=== PATIENT | female | born 1970 | race Caucasian/White ===

== ENCOUNTER 2023-02-20 16:24 | Emergency (ER) | payer SELFPAY ==
[2023-02-20 16:29] VITALS: BP 112/71; PULSE 78; RESP 20; TEMP 36.8; O2SAT 97; BMI 46.9
--- NOTE | 2023-02-20 16:38 | ED.URI1 ---
HPI - URI/Sore Throat General Chief Complaint: Upper Respiratory Infection Stated Complaint: SORE THROAT Time Seen by Provider: 02/20/23 16:38 Source: patient Limitations: no limitations History of Present Illness HPI Narrative: 52-year-old female presents for sore throat and slight cough and some body aches. She thinks she has strep throat or a virus. She's had Covid before and doesn't suspect that she has Covid. No vomiting or fever.Symptoms are intermittent. Related Data Home Medications Medication Instructions Recorded Confirmed atorvastatin 10 mg tablet 10 mg PO DAILY 02/20/23 02/20/23 chlorthalidone 25 mg tablet 25 mg PO DAILY 02/20/23 02/20/23 glipizide 10 mg tablet 10 mg PO BID 02/20/23 02/20/23 lisinopril 10 mg tablet 10 mg PO DAILY 02/20/23 02/20/23 pantoprazole 40 mg tablet,delayed 40 mg PO DAILY 02/20/23 02/20/23 release Allergies Allergy/AdvReac Type Severity Reaction Status Date / Time No Known Drug Allergies Allergy Verified 02/20/23 16:28 Review of Systems ROS Narrative A ten point review of systems is negative except as noted above. PFSH PFSH Social History Smoking status: Heavy tobacco smoker Exam Narrative Exam Narrative: Nurses note and vital signs reviewed and patient is not hypoxic. General: The patient appears well and in no apparent distress. Patient is resting comfortably on cart. Skin: Warm, dry, no pallor noted. There is no rash noted. Head: Normocephalic, atraumatic Eye: Normal conjunctiva, no drainage Ears, Nose, Mouth, and Throat: oral mucosa is moist. Nares patent.No pharyngeal erythema or exudate. Cardiovascular: Regular Rate and Rhythm Respiratory: Patient is in no distress, no accessory muscle use, lungs are clear to auscultation, no wheezing, rales or rhonchi Back: non-tender GI: Soft and nontender Musculoskeletal: The patient has no evidence of calf tenderness, no pitting edema, symmetrical pulses noted bilaterally Neurological: A&O, normal speech Psychiatric: Cooperative Constitutional Vital Signs - 24 hr 02/20/23 16:29 Temperature 98.2 F Pulse Rate [Monitor] 78 Respiratory Rate 20 Blood Pressure [Left Arm] 112/71 Pulse Oximetry 97 Course Vital Signs Vital signs: Vital Signs Temperature 98.2 F 02/20/23 16:29 Pulse Rate 78 02/20/23 16:29 Respiratory Rate 20 02/20/23 16:29 Blood Pressure 112/71 02/20/23 16:29 Pulse Oximetry 97 02/20/23 16:29 Temperature 98.2 F 02/20/23 16:29 Pulse Rate 78 02/20/23 16:29 Respiratory Rate 20 02/20/23 16:29 Blood Pressure 112/71 02/20/23 16:29 Pulse Oximetry 97 02/20/23 16:29 MDM - URI/Sore Throat MDM Narrative Medical decision making narrative: Strep test is negative. My clinical impressions that she is a viral infection. Antibiotic not indicated. Treatment diagnosis and follow up are discussed with the patient. Differential Diagnosis Differential diagnosis: Likely upper respiratory infection, viral infection and pharyngitis Lab Data Attestation: I reviewed the patient's lab results. Labs: Lab Results 02/20/23 Range/Units 16:35 Streptococcus Screen Negative Discharge Plan Discharge Chief Complaint: Upper Respiratory Infection Clinical Impression: Viral pharyngitis Patient Disposition: Home, Self-Care Time of Disposition Decision: 17:20 Condition: Good Mode of Transportation: Private Vehicle Prescriptions / Home Meds: No Action atorvastatin 10 mg tablet 10 mg PO DAILY chlorthalidone 25 mg tablet 25 mg PO DAILY glipizide 10 mg tablet 10 mg PO BID lisinopril 10 mg tablet 10 mg PO DAILY pantoprazole 40 mg tablet,delayed release (DR/EC) 40 mg PO DAILY Instructions: Pharyngitis (ED) Stand Alone Forms: Portal Instructions Referrals: NEGIN HARDWICK [Primary Care Provider] - 1 week
--- NOTE | 2023-02-20 16:40 | PC.NURSE ---
strept swab obtained and sent to lab
[2023-02-20 16:57] LABS: Internal Control Within Normal Limits; Strep A Antigen Screen Negative
== END 2023-02-20 17:31 | disposition home or self-care (01) ==
PROVIDERS: Emergency Provider Emergency Medicine; PCP Nurse Practitioner Family
DX: J02.9 Acute pharyngitis, unspecified (principal); Z86.16 Personal history of COVID-19; F17.210 Nicotine dependence, cigarettes, uncomplicated; Z79.899 Other long term (current) drug therapy
CPT/HCPCS: 87070; 87880; 99283

== ENCOUNTER 2023-08-26 19:10 | Outpatient (REF) | payer BC, SELFPAY ==
[2023-08-30 04:09] LABS: Age Gdln ACOG Testing Note (.); HPV Aptima Positive (Negative); HPV Genotype 16 Negative (Negative); HPV Genotype 18,45 Negative (Negative); IGP, Aptima HPV, rfx 16/18,45 Note (.)
== END 2023-08-26 19:11 | disposition home or self-care (01) ==
LOC: LAB 19:10
PROVIDERS: PCP Nurse Practitioner Family; Visit Provider Nurse Practitioner Family
DX: Z01.419 Encounter for gynecological examination (general) (routine) without abnormal findings (principal)
CPT/HCPCS: 87624; 87625; G0145

== ENCOUNTER 2023-09-04 17:15 | Emergency (ER) | payer BC, SELFPAY ==
[2023-09-04 17:45] VITALS: BP 136/68; PULSE 69; RESP 18; TEMP 37; O2SAT 99; BMI 44.3
--- OUTSIDE RECORDS SUMMARY | 2023-09-04 17:55 | XMS_ITS | CCD ---
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 Role Phone NEGIN HARDWICK Admitting Unavailable RONEN, NEGIN Attending Unavailable RONEN, NEGIN Primary Care Unavailable RONEN, NEGIN Consulting Unavailable RONEN, NEGIN Primary Care Unavailable MARKER ., DR HODGE Consulting Unavailable MARKER ., DR HODGE Admitting Unavailable MARKER ., DR HODGE Attending Unavailable MATT GONZALEZ Consulting Unavailable REQUEST, NONE LISTED Admitting Unavaila ble REQUEST, NONE LISTED Attending Unavaila ble RONEN, NEGIN Primary Care Unavailable REQUEST, NONE LISTED Consulting Unavaila ble RONEN, NEGIN Admitting Unavailable RONEN, NEGIN Attending Unavailable RONEN, NEGIN Primary Care Unavailable REQUEST, NONE LISTED Consulting Unavaila ble RONEN, NEGIN Admitting Unavailable RONEN, NEGIN Attending Unavailable RONEN, NEGIN Primary Care Unavailable RONEN, NEGIN Consulting Unavailable Allergies Allergy Classification Reported Allergen(s) Allergy Type Date of Onset Reaction(s) Facility (1 source) predniSONE Drug Allergy 12-09-2020 [facility] Repository Problems Active Problems Problem Classification Problem Date Documented Da te Episodic/Chronic Diabetes mellitus without complication (5 sources) Type 2 diabetes mellitus without complications; Translations: [TYPE 2 DM WITHOUT COMPLICATIONS] Onset: 02-12-2022 Chronic Essential hypertension (1 source) Essential (primary) hypertension; Translations: [ESSENTIAL PRIMARY HYPERTENSION] Onset: 06-14-2022 Chronic Substance-related disorders (1 source) Nicotine dependence, cigarettes, uncomplicated; Translations: [NICOTINE DEPEND CIGARETTES UNCOMP] Onset: 06-14-2022 Chronic Past or Other Problems Problem Classification Problem Date Documented Da te Episodic/Chronic Diabetes mellitus without complication (1 source) Other abnormal glucose; Translations: [OTHER ABNORMAL GLUCOSE] Onset: 02-14-2022 Episodic Other aftercare (1 source) 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; Translations: [OTH COOK APPRENTICE CURRENT DRUG THERAPY] Onset: 06-14-2022 Episodic Other non-traumatic joint disorders (4 sources) Pain in left shoulder; Translations: [PAIN IN LEFT SHOULDER] Onset: 06-13-2022 Episodic Results Test Name Value Interpretation Reference Range Facility GLYCOHEMOGLOBIN A1Con 2022 ADA RECOMMENDATION SEE BELOW Normal The [facility] Comment on above: Result Comment: ADA RECOMMENDED LIMIT 4.0 - 6.0 ADA THERAPEUTIC TARGET < 7.0 ACTION SUGGESTED > 7.0 Performed By: #### D ATA1C #### [facility] [address] [address] [address] Ayleen Navarro Glucose [Mass/Vol] 192 mg/dL Normal The [facility] Comment on above: Performed By: #### D ATA1C #### [facility] [address] [address] [address] Ayleen Navarro HbA1c (Bld) [Mass fraction] 8.3 % Critically high 4.5-6.2 [facility] Comment on above: Performed By: #### D ATA1C #### [facility] [address] [address] [address] Ayleen Navarro GLYCOHEMOGLOBIN A1Con 2021 ADA RECOMMENDATION SEE BELOW Normal The [facility] Comment on above: Result Comment: ADA RECOMMENDED LIMIT 4.0 - 6.0 ADA THERAPEUTIC TARGET < 7.0 ACTION SUGGESTED > 7.0 Performed By: #### D ATA1C ####[facility] [address] [address]Dr. Ayleen Navarro Glucose [Mass/Vol] 180 mg/dL Normal The [facility] Comment on above: Performed By: #### D ATA1C ####[facility] [address] [id number]. Ayleen Navarro HbA1c (Bld) [Mass fraction] 7.9 % Critically high 4.5-6.2 [facility] Comment on above: Performed By: #### D ATA1C ####[facility] [address] [address]Dr. Ayleen Navarro CBC AUTO DIFFon 06-13-2022 BASO # 0.1 103/ul Normal 0.0-0.1 [facility] Comment on above: Performed By: #### C BC #### [facility] [address] [place] [address] Dr. Ayleen Navarro Basophils/100 WBC (Bld) 0.7 % Normal 0.2-2.0 [facility] Comment on above: Performed By: #### C BC #### [facility] [address] [place] [address] Dr. Ayleen Navarro EO # 0.2 103/ul Normal 0.0-0.7 [facility] Comment on above: Performed By: #### C BC #### [facility] [address] [place] [address] Dr. Ayleen Navarro Eosinophils/100 WBC (Bld) 2.1 % Normal 0.9-7.0 [facility] Comment on above: Performed By: #### C BC #### [facility] [address] [place] [address] Dr. Ayleen Navarro Erythrocyte distribution width (RBC) [Ratio] 12.6 % Normal 11.0-15.0 [facility] Comment on above: Performed By: #### C BC #### [facility] [address] [place] [address] Dr. Ayleen Navarro Hematocrit (Bld) [Volume fraction] 42.8 % Normal 36.0-48.0 [facility] Comment on above: Performed By: #### C BC #### [facility] [address] [place] [address] Dr. Ayleen Navarro Hemoglobin (Bld) [Mass/Vol] 14.3 g/dL Normal 12.0-16.0 [facility] Comment on above: Performed By: #### C BC #### [facility] [address] [place] [address] Dr. Ayleen Navarro IG # 0.05 10e3/ul Critically high 0.00-0.03 [facility] Comment on above: Performed By: #### C BC #### [facility] [address] [place] [address] Dr. Ayleen Navarro IG % 0.5 % Normal 0.0-0.5 [facility] Comment on above: Performed By: #### C BC #### [facility] [address] [place] [address] Dr. Ayleen Navarro LYMPH # 3.4 103/ul Normal 1.2-3.8 [facility] Comment on above: Performed By: #### C BC #### [facility] [address] [place] [address] Dr. Ayleen Navarro Lymphocytes/100 WBC (Bld) 31.5 % Normal 20.5-60.0 [facility] Comment on above: Performed By: #### C BC #### [facility] [address] [place] [address] Dr. Ayleen Navarro MANUAL DIFF REQ NO Normal [facility] Comment on above: Performed By: #### C BC #### [facility] [address] [place] [address] Dr. Ayleen Navarro MCH (RBC) [Entitic mass] 29.3 pg Normal 26.7-34.0 [facility] Comment on above: Performed By: #### C BC #### [facility] [address] [place] [address] Dr. Ayleen Navarro MCHC (RBC) [Mass/Vol] 33.4 g/dL Normal 29.9-35.2 [facility] Comment on above: Performed By: #### C BC #### [facility] [address] [place] [address] Dr. Ayleen Navarro MCV (RBC) [Entitic vol] 87.7 fL Normal 81.0-99.0 [facility] Comment on above: Performed By: #### C BC #### [facility] [address] [place] [address] Dr. Ayleen Navarro MONO # 0.6 103/ul Normal 0.3-0.8 [facility] Comment on above: Performed By: #### C BC #### [facility] [address] [place] [address] Dr. Ayleen Navarro Monocytes/100 WBC (Bld) 5.5 % Normal 1.7-12.0 [facility] Comment on above: Performed By: #### C BC #### [facility] [address] [address] [address] Ayleen Navarro NEUT # 6.4 103/ul Normal 1.4-6.5 [facility] Comment on above: Performed By: #### C BC #### [facility] [address] [address] [address] Ayleen Navarro Neutrophils/100 WBC (Bld) 59.7 % Normal 43.0-75.0 [facility] Comment on above: Performed By: #### C BC #### [facility] [address] [address] [address] Ayleen Navarro Platelet mean volume (Bld) [Entitic vol] 10.9 fL Normal 9.5-13.5 [facility] Comment on above: Performed By: #### C BC #### [facility] [address] [place] [address] Dr. Ayleen Navarro PLT 229 103/ul Normal 150-450 [facility] Comment on above: Performed By: #### C BC #### [facility] [address] [place] [address] Dr. Ayleen Navarro RBC 4.88 106/ul Normal 4.20-5.40 [facility] Comment on above: Performed By: #### C BC #### [facility] [address] [place] [address] Dr. Ayleen Navarro WBC 10.7 103/ul Normal 4.0-11.0 [facility] Comment on above: Performed By: #### C BC #### [facility] [address] [place] [address] Dr. Ayleen Navarro PROF 14(COMP METB)on 022 Albumin [Mass/Vol] 3.2 g/dL Critically low 3.4-5.0 [facility] Comment on above: Performed By: #### H STROPN, CMP #### [facility] [address] [place] [address] Dr. Ayleen Navarro Albumin/Globulin [Mass ratio] 0.8 {ratio} Normal [facility] Comment on above: Performed By: #### H STROPN, CMP #### [facility] [address] [address] [address] Ayleen Navarro ALP [Catalytic activity/Vol] 76 U/L Normal 46-116 [facility] Comment on above: Performed By: #### H STROPN, CMP #### [facility] [address] [address] [address] Ayleen Navarro ALT [Catalytic activity/Vol] 24 U/L Normal 14-59 [facility] Comment on above: Performed By: #### H STROPN, CMP #### [facility] [address] [address] [address] Ayleen Navarro Anion gap [Moles/Vol] 8.5 mmol/L Normal [facility] Comment on above: Performed By: #### H STROPN, CMP #### [facility] [address] [address] [address] Ayleen Navarro AST [Catalytic activity/Vol] 4 U/L Critically low 15-37 [facility] Comment on above: Performed By: #### H STROPN, CMP #### [facility] [address] [address] [address] Ayleen Navarro Bilirubin [Mass/Vol] 0.2 mg/dL Normal 0.2-1.0 [facility] Comment on above: Performed By: #### H STROPN, CMP #### [facility] [address] [address] [address] Ayleen Navarro Calcium [Mass/Vol] 8.8 mg/dL Normal 8.5-10.1 [facility] Comment on above: Performed By: #### H STROPN, CMP #### [facility] [address] [address] [address] Ayleen Navarro Chloride [Moles/Vol] 99 mmol/L Normal 98-107 [facility] Comment on above: Performed By: #### H STROPN, CMP #### [facility] [address] [address] [address] Ayleen Navarro CO2 [Moles/Vol] 29.9 mmol/L Normal 21.0-32.0 [facility] Comment on above: Performed By: #### H STROPN, CMP #### [facility] [address] [address] [address] Ayleen Navarro Creatinine [Mass/Vol] 0.88 mg/dL Normal 0.55-1.02 [facility] Comment on above: Performed By: #### H STROPN, CMP #### [facility] [address] [address] [address] Ayleen Navarro EGFR-AF PALESTINIAN >60 Normal >=60 [facility] Comment on above: Performed By: #### H STROPN, CMP #### [facility] [address] [address] [address] Ayleen Navarro EGFR-NON AF PALESTINIAN >60 Normal >=60 [facility] Comment on above: Performed By: #### H STROPN, CMP #### [facility] [address] [address] [address] Ayleen Navarro Globulin (S) [Mass/Vol] 3.9 g/dL Normal [facility] Comment on above: Performed By: #### H STROPN, CMP #### [facility] [address] [address] [address] Ayleen Navarro Glucose [Mass/Vol] 245 mg/dL Critically high 74-106 T [facility] Comment on above: Performed By: #### H STROPN, CMP #### [facility] [address] [address] [address] Ayleen Navarro Potassium [Moles/Vol] 3.4 mmol/L Critically low 3.5-5.1 [facility] Comment on above: Performed By: #### H STROPN, CMP #### [facility] [address] [address] [address] Ayleen Navarro Protein [Mass/Vol] 7.1 g/dL Normal 6.4-8.2 [facility] Comment on above: Performed By: #### H STROPN, CMP #### [facility] [address] [address] [address] Ayleen Navarro Sodium [Moles/Vol] 134 mmol/L Critically low 136-145 Th e [facility] Comment on above: Performed By: #### H STROPN, CMP #### [facility] [address] [address] [address] Ayleen Navarro Urea nitrogen [Mass/Vol] 18.0 mg/dL Normal 7.0-18.0 [facility] Comment on above: Performed By: #### H RITAPN, CMP #### [facility] [address] [address] [address] Ayleen Navarro Urea nitrogen/Creatinine [Mass ratio] 20.5 mg/mg Normal [facility] Comment on above: Performed By: #### H RITAPN, CMP #### [facility] [address] [address] [address] Ayleen Navarro TROPONIN, HIGH SENSITIVITYon 06-13-2022 HSTROP 8.6 pg/mL Normal 4.0-51.3 [facility] Comment on above: Result Comment: CUT- OFF POINTS HAVE BEEN ESTABLISHED BASED ON THE FOURTH UNIVERSAL DEFINITIONS OF MYOCARDIAL INFARCTION. THE UPPER REFERENCE LIMIT (URL) OF TROPONIN, DEFINED THE 99TH PERCENTILE OF cTnI DISTRIBUTION IN A REFERENCE POPULATION, HAS BEEN CONFIRMED THE DECISION THRESHOLD FOR PA DIAGNOSIS. Performed By: #### H STROPN ####[facility] [address] [address]Dr. Ayleen Navarro HSTROP <4.0 Normal 4.0-51.3 [facility] Comment on above: Result Comment: CUT- OFF POINTS HAVE BEEN ESTABLISHED BASED ON THE FOURTH UNIVERSAL DEFINITIONS OF MYOCARDIAL INFARCTION. THE UPPER REFERENCE LIMIT (URL) OF TROPONIN, DEFINED THE 99TH PERCENTILE OF cTnI DISTRIBUTION IN A REFERENCE POPULATION, HAS BEEN CONFIRMED THE DECISION THRESHOLD FOR PA DIAGNOSIS. Performed By: #### H RITAPN, CMP #### [facility] [id number] Ayleen Navarro XR CHEST 1 Von 06-13-2022 XR CHEST 1 V EXAM: XR CHEST 1 V HISTORY: CHEST PAIN, UNSPECIFIED COMPARISON: Chest radiograph dated 12/09/2020. TECHNIQUE: One view of the chest was obtained. FINDINGS: The cardiac silhouette is stable in size. Aortic atherosclerotic disease is seen. There are left basilar opacities. There is no significant pneumothorax or pleural effusion. No acute osseous abnormality is seen. IMPRESSION: 1. Left basilar opacities are felt to represent atelectasis though infection could be present. Electronically authenticated by: Radha GONZALEZ Date: 2022-06-13 04:44 Normal [facility] INSULINon 02-23-2022 Insulin 22.9 uIU/mL Normal 2.6-24.9 [facility] Comment on above: Performed By: #### I NSULIN #### [facility] [address] [address] [address] Ayleen Navarro CBC AUTO DIFFon 02-22-2022 BASO # 0.1 103/ul Normal 0.0-0.1 [facility] Comment on above: Performed By: #### C BC ####[facility] [address] [address]Dr. Ayleen Navarro Basophils/100 WBC (Bld) 0.9 % Normal 0.2-2.0 [facility] Comment on above: Performed By: #### C BC ####[facility] [address] [address]Dr. Ayleen Navarro EO # 0.2 103/ul Normal 0.0-0.7 [facility] Comment on above: Performed By: #### C BC ####[facility] [address] [address]Dr. Ayleen Navarro Eosinophils/100 WBC (Bld) 2.6 % Normal 0.9-7.0 [facility] Comment on above: Performed By: #### C BC ####[facility] [address] [address]DrMiky Navarro Erythrocyte distribution width (RBC) [Ratio] 13.3 % Normal 11.0-15.0 [facility] Comment on above: Performed By: #### C BC ####[facility] [address] [address]DrMiky Navarro Hematocrit (Bld) [Volume fraction] 42.8 % Normal 36.0-48.0 [facility] Comment on above: Performed By: #### C BC ####[facility] [address] [id number]. Ayleen Navarro Hemoglobin (Bld) [Mass/Vol] 14.3 g/dL Normal 12.0-16.0 [facility] Comment on above: Performed By: #### C BC ####[facility] [address] [id number]. Ayleen Navarro IG # 0.05 10e3/ul Critically high 0.00-0.03 [facility] Comment on above: Performed By: #### C BC ####[facility] [address] [address]Dr. Ayleen Navarro IG % 0.5 % Normal 0.0-0.5 [facility] Comment on above: Performed By: #### C BC ####[facility] [address] [address]Dr. Ayleen Navarro LYMPH # 3.0 103/ul Normal 1.2-3.8 [facility] Comment on above: Performed By: #### C BC ####[facility] [address] [address]Dr. Ayleen Navarro Lymphocytes/100 WBC (Bld) 32.4 % Normal 20.5-60.0 [facility] Comment on above: Performed By: #### C BC ####[facility] [address] [address]Dr. Ayleen Navarro MANUAL DIFF REQ NO Normal [facility] Comment on above: Performed By: #### C BC ####[facility] [address] [address]Dr. Ayleen Navarro MCH (RBC) [Entitic mass] 29.5 pg Normal 26.7-34.0 [facility] Comment on above: Performed By: #### C BC ####[facility] [address] [place], [place] [address]Dr. Ayleen Navarro MCHC (RBC) [Mass/Vol] 33.4 g/dL Normal 29.9-35.2 [facility] Comment on above: Performed By: #### C BC ####[facility] [address] [id number]. Ayleen Navarro MCV (RBC) [Entitic vol] 88.2 fL Normal 81.0-99.0 [facility] Comment on above: Performed By: #### C BC ####[facility] [address] [id number]. Ayleen Navarro MONO # 0.6 103/ul Normal 0.3-0.8 [facility] Comment on above: Performed By: #### C BC ####[facility] [address] [id number]. Ayleen Navarro Monocytes/100 WBC (Bld) 6.7 % Normal 1.7-12.0 [facility] Comment on above: Performed By: #### C BC ####[facility] [address] [id number]. Ayleen Navarro NEUT # 5.3 103/ul Normal 1.4-6.5 [facility] Comment on above: Performed By: #### C BC ####[facility] [address] [id number]. Ayleen Navarro Neutrophils/100 WBC (Bld) 56.9 % Normal 43.0-75.0 [facility] Comment on above: Performed By: #### C BC ####[facility] [address] [id number]. Ayleen Navarro Platelet mean volume (Bld) [Entitic vol] 11.0 fL Normal 9.5-13.5 [facility] Comment on above: Performed By: #### C BC ####[facility] [address] [id number]. Ayleen Navarro PLT 239 103/ul Normal 150-450 [facility] Comment on above: Performed By: #### C BC ####[facility] [address] [id number]. Ayleen Navarro RBC 4.85 106/ul Normal 4.20-5.40 [facility] Comment on above: Performed By: #### C BC ####[facility] [address] [place], [place] [id number]. Ayleen Navarro WBC 9.3 103/ul Normal 4.0-11.0 [facility] Comment on above: Performed By: #### C BC ####[facility] [address] [address]Dr. Ayleen Navarro FREE THYROXINE INDEX T7on FTI 3.36 Normal 1.30-4.50 [facility] Comment on above: Performed By: #### L IPID, CMP, T7, TSH #### [facility] [address] [address] [address] Ayleen Navarro T3U 32.0 % Normal 30.0-39.0 [facility] Comment on above: Performed By: #### L IPID, CMP, T7, TSH #### [facility] [address] [address] [address] Ayleen Navarro T4 [Mass/Vol] 10.50 ug/dL Normal 4.80-13.90 [facility] Comment on above: Performed By: #### L IPID, CMP, T7, TSH #### [facility] [address] [address] [address] Ayleen Navarro IRONon 02-22-2022 Iron [Mass/Vol] 117.0 ug/dL Normal 50.0-170.0 [facility] Comment on above: Performed By: #### I FEDERICO ####[facility] [address] [address]Dr. Ayleen Navarro LIPID PROFILEon 02-22-2022 CHOL-HDL RATIO NORM SEE BELOW Normal [facility] Comment on above: Result Comment: 3.3 - 4.4 LOW RISK 4.4 - 7.1 AVERAGE RISK 7.1 - 11.0 MODERATE RISK >11.0 HIGH RISK Performed By: #### L IPID, CMP, T7, TSH #### [facility] [address] [address] [address] Ayleen Navarro Cholesterol [Mass/Vol] 161 mg/dL Normal <=200 [facility] Comment on above: Performed By: #### L IPID, CMP, T7, TSH #### [facility] [address] [address] [address] Ayleen Navarro Cholesterol in HDL [Mass/Vol] 42 mg/dL Normal 40-60 [facility] Comment on above: Performed By: #### L IPID, CMP, T7, TSH #### [facility] [address] [address] [address] Ayleen Navarro Cholesterol in LDL [Mass/Vol] 98.4 mg/dL Normal [facility] Comment on above: Performed By: #### L IPID, CMP, T7, TSH #### [facility] [address] [address] [address] Ayleen Navarro Cholesterol.total/Cho lesterol in HDL [Mass ratio] 3.8 {ratio} Normal [facility] Comment on above: Performed By: #### L IPID, CMP, T7, TSH #### [facility] [address] [address] [address] Ayleen Navarro HDL NORMAL > or = 60 mg/dl - LO W CARDIOVASCULAR RISK <40 mg/dl - HIGH CARDIOVASCULAR RISK Normal [facility] Comment on above: Performed By: #### L IPID, CMP, T7, TSH #### [facility] [address] [address] [address] Ayleen Navarro LDL CALC NORMAL SEE BELOW Normal [facility] Comment on above: Result Comment: <100 mg/dl OPTIMAL 100 - 129 mg/dl NEAR OR ABOVE OPTIMAL 130 - 159 mg/dl BORDERLINE HIGH 160 - 189 mg/dl HIGH >190 mg/dl VERY HIGH Performed By: #### L IPID, CMP, T7, TSH #### [facility] [address] [address] [address] Ayleen Navarro Triglyceride [Mass/Vol] 103 mg/dL Normal <=150 [facility] Comment on above: Performed By: #### L IPID, CMP, T7, TSH #### [facility] [address] [address] [address] Ayleen Navarro VLDL CALC 20.6 mg/dL Normal [facility] Comment on above: Performed By: #### L IPID, CMP, T7, TSH #### [facility] [address] [place] [address] Dr. Ayleen Navarro PROF 14(COMP METB)on 022 Albumin [Mass/Vol] 3.4 g/dL Normal 3.4-5.0 [facility] Comment on above: Performed By: #### L IPID, CMP, T7, TSH #### [facility] [address] [place] [address] Dr. Ayleen Navarro Albumin/Globulin [Mass ratio] 0.9 {ratio} Normal [facility] Comment on above: Performed By: #### L IPID, CMP, T7, TSH #### [facility] [address] [place] [address] Dr. Ayleen Navarro ALP [Catalytic activity/Vol] 71 U/L Normal 46-116 [facility] Comment on above: Performed By: #### L IPID, CMP, T7, TSH #### [facility] [address] [place] [address] Dr. Ayleen Navarro ALT [Catalytic activity/Vol] 25 U/L Normal 14-59 [facility] Comment on above: Performed By: #### L IPID, CMP, T7, TSH #### [facility] [address] [place] [address] Dr. Ayelen Navarro Anion gap [Moles/Vol] 10.1 mmol/L Normal [facility] Comment on above: Performed By: #### L IPID, CMP, T7, TSH #### [facility] [address] [place] [address] Dr. Ayleen Navarro AST [Catalytic activity/Vol] 11 U/L Critically low 15-37 [facility] Comment on above: Performed By: #### L IPID, CMP, T7, TSH #### [facility] [address] [place] [address] Dr. Ayleen Navarro Bilirubin [Mass/Vol] 0.5 mg/dL Normal 0.2-1.0 [facility] Comment on above: Performed By: #### L IPID, CMP, T7, TSH #### [facility] [address] [place] [address] Dr. Ayleen Navarro Calcium [Mass/Vol] 8.8 mg/dL Normal 8.5-10.1 [facility] Comment on above: Performed By: #### L IPID, CMP, T7, TSH #### [facility] [address] [address] [address] Ayleen Navarro Chloride [Moles/Vol] 100 mmol/L Normal 98-107 [facility] Comment on above: Performed By: #### L IPID, CMP, T7, TSH #### [facility] [address] [address] [address] Ayleen Navarro CO2 [Moles/Vol] 29.5 mmol/L Normal 21.0-32.0 [facility] Comment on above: Performed By: #### L IPID, CMP, T7, TSH #### [facility] [address] [place] [address] Dr. Ayleen Navarro Creatinine [Mass/Vol] 0.61 mg/dL Normal 0.55-1.02 [facility] Comment on above: Performed By: #### L IPID, CMP, T7, TSH #### [facility] [address] [place] [address] Dr. Ayleen Navarro EGFR-AF PALESTINIAN >60 Normal >=60 [facility] Comment on above: Performed By: #### L IPID, CMP, T7, TSH #### [facility] [address] [place] [address] Dr. Ayleen Navarro EGFR-NON AF PALESTINIAN >60 Normal >=60 [facility] Comment on above: Performed By: #### L IPID, CMP, T7, TSH #### [facility] [address] [place] [address] Dr. Ayleen Navarro Globulin (S) [Mass/Vol] 3.9 g/dL Normal [facility] Comment on above: Performed By: #### L IPID, CMP, T7, TSH #### [facility] [address] [place] [address] Dr. Ayleen Navarro Glucose [Mass/Vol] 119 mg/dL Critically high 74-106 [facility] [place] Comment on above: Performed By: #### L IPID, CMP, T7, TSH #### [facility] [address] [address] [address] Ayleen Navarro Potassium [Moles/Vol] 3.6 mmol/L Normal 3.5-5.1 [facility] Comment on above: Performed By: #### L IPID, CMP, T7, TSH #### [facility] [address] [address] [address] Ayleen Navarro Protein [Mass/Vol] 7.3 g/dL Normal 6.4-8.2 [facility] Comment on above: Performed By: #### L IPID, CMP, T7, TSH #### [facility] [address] [place] [address] Dr. Ayleen Navarro Sodium [Moles/Vol] 136 mmol/L Normal 136-145 [facility] [place] Comment on above: Performed By: #### L IPID, CMP, T7, TSH #### [facility] [address] [place] [address] Dr. Ayleen Navarro Urea nitrogen [Mass/Vol] 19.0 mg/dL Critically high 7.0-18.0 [facility] Comment on above: Performed By: #### L IPID, CMP, T7, TSH #### [facility] [address] [place] [address] Dr. Ayleen Navarro Urea nitrogen/Creatinine [Mass ratio] 31.1 mg/mg Normal [facility] Comment on above: Performed By: #### L IPID, CMP, T7, TSH #### [facility] [address] [place] [address] Dr. Ayleen Navarro TSHon 02-22-2022 TSH 0.964 uIU/mL Normal 0.358-3.740 [facility] Comment on above: Performed By: #### L IPID, CMP, T7, TSH #### [facility] [address] [place] [address] Dr. yAleen Navarro GLYCOHEMOGLOBIN A1Con 2021 ADA RECOMMENDATION SEE BELOW Normal [facility] Comment on above: Result Comment: ADA RECOMMENDED LIMIT 4.0 - 6.0 ADA THERAPEUTIC TARGET < 7.0 ACTION SUGGESTED > 7.0 Performed By: #### A 1C ####[facility] [id number] [place], [place] [address]Ws. Ayleen Navarro Glucose [Mass/Vol] 140 mg/dL Normal [facility] Comment on above: Performed By: #### A 1C ####[facility] [id number] [place], [place] [address]Ia. Ayleen Navarro HbA1c (Bld) [Mass fraction] 6.5 % Critically high 4.5-6.2 [facility] Comment on above: Performed By: #### A 1C ####[facility] [id number] [place], [place] [address]Wp. Ayleen Navarro Encounters Encounter Date Encounter Type Care Provider Facility Start: 11-23-2022 Encounter for genera l adult medical examination without abnormal findings NEGIN HARDWICK [facility] Start: 11-19-2022 End: 11-20-2022 ambulatory NEGIN HARDWICK Facility:[facility] Start: 11-19-2022 End: 11-20-2022 Encounter for general adult medical examination without abnormal findings NEGIN HARDWICK Facility:[facility] Start: 08-21-2022 End: 08-22-[address] NONE LISTED REQUEST Facility:[facility] Start: 06-13-2022 End: 06-13-2022 ambulatory NEGIN HARDWICK Facility:[facility] Start: 02-22-2022 End: 02-23-2022 ambulatory NEGIN HARDWICK Facility:[facility] Start: 02-12-2022 End: 02-13-2022 ambulatory NEGIN HARDWICK Facility:[facility] Payers Date Payer Category Payer Unknown [id number] [id number] [id number] 1970 Unknown [id number] . [id number] 1970 Unknown [id number] . [id number] 1960 Self-pay 1959 Unknown [id number] 1960 Unknown Unknown [id number] 10.17.84 [id number] Unknown [id number] Summary Purpose Family History No Family History Records Found Advance Directives No Advanced Directives Records Found Additional Source Comments INFORMATION SOURCE (unrecogn ized section and content) DATE CREATED AUTHOR 11/24/2022 [facility] FOR RECORDS PERTAINING TO PATIENTS WHO ARE OR HAVE BEEN ENROLLED IN A CHEMICAL DEPENDENCY/SUBSTANCEABUSE PROGRAM, SOME INFORMATION MAY BE OMITTED. This clinical summary was aggregated from multiple sources. Caution should be exercised in using it in the provision of clinical care. This summary normalizes information from multiple sources, and as a consequence, information in this document may materially change the coding, format and clinical context of patient data. In addition, data may be omitted in some cases. CLINICAL DECISIONS SHOULD BE BASED ON THE PRIMARY CLINICAL RECORDS. [facility] [employer] [facility]. provides no warranty or guarantee of the accuracy or completeness of information in this document.
--- NOTE | 2023-09-04 17:56 | XR_ITS ---
The [address] [address] Patient Name: KEVIN CUNHA MRN: [id number] date: 1970 Sex: F Assigned Patient Location: ED.MAIN Current Patient Location: ER Accession/Order Number: [id number] Exam Date: 09/04/2023 18:24 Report Date: 09/04/2023 18:49 At the request of: RICHARDSON IBARRA Procedure: XR chest 1V EXAM: XR chest 1V HISTORY: Cough COMPARISON: 06/13/2022 TECHNIQUE: Chest X-ray AP, 1 view FINDINGS: Support devices: None. Lungs/pleura: No consolidation, effusion, or pneumothorax. Heart and mediastinum: Normal contours. Bones: No acute abnormality identified. XR/XR chest 1V Impression: No radiographic evidence of acute cardiopulmonary process. Electronically authenticated by: BRADFORD ALFARO Date: 09/04/2023 18:49
--- NOTE | 2023-09-04 18:03 | ED.GENADUL1 ---
HPI - General Adult General Chief complaint: Upper Respiratory Infection Time Seen by Provider: 09/04/23 17:56 Source: patient Mode of arrival: walk-in Limitations: no limitations History of Present Illness HPI narrative: Patient is a 52-year-old female who presents to the emergency department for the evaluation of flulike illness for the last day. She reports headache, body aches, cough and congestion, nausea and lack of appetite. She has had no vomiting or diarrhea. She does not complain of chest pain or shortness of breath. She has no significant sputum production. She states she intermittently has ear pain and sore throat. No medications taken prior to arrival today. After initial interview on my leaving the exam room, patient states she works and needs a note. Related Data Home Medications Medication Instructions Recorded Confirmed atorvastatin 10 mg tablet 10 mg PO DAILY 02/20/23 02/20/23 chlorthalidone 25 mg tablet 25 mg PO DAILY 02/20/23 02/20/23 glipizide 10 mg tablet 10 mg PO BID 02/20/23 02/20/23 lisinopril 10 mg tablet 10 mg PO DAILY 02/20/23 02/20/23 pantoprazole 40 mg tablet,delayed 40 mg PO DAILY 02/20/23 02/20/23 release Previous Rx's Medication Instructions Recorded benzonatate 200 mg capsule 200 mg PO TID PRN cough #14 caps 02/20/23 omjyckmhzhezovw-btgvhbelxofzqxm-XI 10 ml PO Q6H PRN cold symptoms 09/04/23 2 mg-30 mg-10 mg/5 mL oral syrup #200 mL (Bromfed DM) ondansetron 4 mg disintegrating 4 mg PO Q6H PRN nausea and 09/04/23 tablet vomiting #12 tabs Allergies Allergy/AdvReac Type Severity Reaction Status Date / Time No Known Drug Allergies Allergy Verified 09/04/23 17:45 Review of Systems ROS Constitutional Denies: fever or chills Ears, nose, mouth, and throat Reports: throat pain and nasal congestion Cardiovascular Denies: chest pain Respiratory Reports: cough; Denies: shortness of breath Gastrointestinal Reports: nausea; Denies: vomiting or diarrhea Musculoskeletal Denies: back pain Integumentary/Breast Denies: rash Neurological Reports: headache Hematologic/Lymphatic Denies: easy bruising Allergic/Immunologic Denies: hives PFSH PFSH Social History Smoking status: Heavy tobacco smoker Exam Narrative Exam Narrative: Gen.: Awake, alert, in no distress Head: Normocephalic, atraumatic ENT: Moist mucous membranes, bilateral TMs clear Respiratory: No respiratory distress, lungs clear bilaterally; dry cough noted Cardio: Regular rate and rhythm Gastrointestinal: Abdomen is soft, nondistended and nontender to palpation Extremities: Moves extremities equally Psych: Normal mood and affect Neuro: No focal neuro deficit Skin: Warm, dry, intact Constitutional Vital Signs, click to edit/add: Last Vital Signs Temp 98.6 F 09/04/23 17:45 Pulse 69 09/04/23 17:45 Resp 18 09/04/23 17:45 BP 136/68 09/04/23 17:45 Pulse Ox 99 09/04/23 17:45 O2 Del Method Room Air 09/04/23 17:45 Course Vital Signs Vital signs: Vital Signs Temperature 98.6 F 09/04/23 17:45 Pulse Rate 69 09/04/23 17:45 Respiratory Rate 18 09/04/23 17:45 Blood Pressure 136/68 09/04/23 17:45 Pulse Oximetry 99 09/04/23 17:45 Oxygen Delivery Method Room Air 09/04/23 17:45 Temperature 98.6 F 09/04/23 17:45 Pulse Rate 69 09/04/23 17:45 Respiratory Rate 18 09/04/23 17:45 Blood Pressure 136/68 09/04/23 17:45 Pulse Oximetry 99 09/04/23 17:45 Oxygen Delivery Method Room Air 09/04/23 17:45 Medical Decision Making [facility] Narrative Medical decision making narrative: Patient appears well-hydrated and nontoxic with stable vital signs, clear lungs. Chest x-ray with no evidence of acute cardiopulmonary changes and she is negative for COVID, negative for influenza. She is given a work note, Bromfed-DM and Zofran for home. Follow-up PCP and return to the ER if symptoms change or worsen Medical Records Medical records reviewed: Yes I reviewed the patient's medical records Lab Data Lab results reviewed: Yes I reviewed the patient's lab results Labs: Lab Results 09/04/23 Range/Units 17:54 SARS-CoV-2 (PCR) Negative (NEGATIVE) Influenza Type A Ag Negative Influenza Type B Ag Negative Imaging Data Chest x-ray: Attestation: I have reviewed the pertinent imaging results. Radiologist's impression: ITS Impressions Chest X-Ray 09/04/23 17:56 Impression: No radiographic evidence of acute cardiopulmonary process. Electronically authenticated by: BRADFORD ALFARO Date: 09/04/2023 18:49 Discharge Plan Discharge Chief Complaint: Upper Respiratory Infection Clinical Impression: Upper respiratory infection, Flu-like symptoms Patient Disposition: Home, Self-Care Time of Disposition Decision: 19:20 Condition: Good Prescriptions / Home Meds: New muraqtikvhbhgwh-dvyamozos-GP [Bromfed DM] 2-30-10 mg/5 mL syrup 10 ml PO Q6H PRN (Reason: cold symptoms) Qty: 200 0RF ondansetron 4 mg tablet,disintegrating 4 mg PO Q6H PRN (Reason: nausea and vomiting) Qty: 12 0RF No Action atorvastatin 10 mg tablet 10 mg PO DAILY chlorthalidone 25 mg tablet 25 mg PO DAILY glipizide 10 mg tablet 10 mg PO BID lisinopril 10 mg tablet 10 mg PO DAILY pantoprazole 40 mg tablet,delayed release (DR/EC) 40 mg PO DAILY benzonatate 200 mg capsule 200 mg PO TID PRN (Reason: cough) Qty: 14 0RF Instructions: Upper Respiratory Infection (ED), Viral Syndrome (ED) Stand Alone Forms: Portal Instructions Referrals: NEGIN HARDWICK [Primary Care Provider] - 1 week
[2023-09-04] MEDS: ONDANSETRON 4 MG RAPDIS TABLET SL (18:13)
[2023-09-04 19:10] LABS: Influenza Virus A Antigen Negative; Influenza Virus B Antigen Negative
[2023-09-04 19:11] LABS: Internal Control Within Normal Limits; SARS-CoV-2 Ag NEGATIVE (NEGATIVE)
[2023-09-05 15:36] LABS: SARS-CoV-2 NAA NOT DETECTED (NOT DETECTE)
== END 2023-09-04 19:38 | disposition home or self-care (01) ==
PROVIDERS: Emergency Provider Emergency Medicine; PCP Nurse Practitioner Family
DX: J06.9 Acute upper respiratory infection, unspecified (principal); R05.9 Cough, unspecified; R51.9 Headache, unspecified; R11.0 Nausea; R63.0 Anorexia; R09.81 Nasal congestion; Z68.41 Body mass index [BMI] 40.0-44.9, adult; Z79.899 Other long term (current) drug therapy; F17.210 Nicotine dependence, cigarettes, uncomplicated; Z20.822 Contact with and (suspected) exposure to COVID-19
CPT/HCPCS: 71045; 87635; 87804; 87811; 99285; Q0162

== ENCOUNTER 2024-02-04 09:39 | Outpatient (OUT) | payer BC, SELFPAY ==
--- NOTE | 2024-02-04 09:46 | XR_ITS ---
The [address] [address] Patient Name: KEVIN CUNHA MRN: [id number] date: 1970 Sex: F Assigned Patient Location: [facility] Current Patient Location: Accession/Order Number: [id number] Exam Date: 02/04/2024 09:50 Report Date: 02/05/2024 07:38 At the request of: NEGIN HARDWICK Procedure: XR knee LT 3V PROCEDURE: XR knee LT 3V HISTORY: Left Knee Pain M25.562 COMPARISON: XR knee left 10/14/2019 FINDINGS: BONES:Moderate-marked narrowing of the medial joint space with near yfgi-hh-hyxg articulation. Suspect moderate narrowing of the anterior joint space. Large degenerative osteophytes along the articular margins of all 3 compartments. No fracture, dislocation, bone lesion. SOFT TISSUES:No visible soft tissue swelling. EFFUSION:None visible. OTHER: Negative. XR/XR knee LT 3V IMPRESSION: 1. No appreciable acute abnormality. 2. Marked degenerative joint disease; progressed since prior study. Electronically authenticated by: GRIFFIN DELCID Date: 02/05/2024 07:38
--- OUTSIDE RECORDS SUMMARY | 2024-02-04 10:04 | XMS_ITS ---
Patient Summarization (C-CDA 2.1 CCD) Created on: February 04, 2024 KEVIN CUNHA : 1970 Sex: Female Author Organization Sample organization Care Team Providers Care Medical Advisor Name Role Phone NEGIN HARDWICK Admitting Unavailable RONEN, NEGIN Attending Unavailable RONEN, NEGIN Primary Care Unavailable RONEN, NEGIN Consulting Unavailable RONEN, NEGIN Primary Care Unavailable MARKER ., DR HODGE Consulting Unavailable MARKER ., DR HODGE Admitting Unavailable MARKER ., DR HODGE Attending Unavailable GONZALEZMATT Consulting Unavailable REQUEST, NONE LISTED Admitting Unavaila [...] (1 source) predniSONE Drug Allergy 12-09-2020 [facility] Encounters Encounter Date Encounter Type Care Provider Facility Start: 11-23-2022 Encounter for genera l adult medical examination without abnormal findings NEGIN HARDWICK [facility] Start: 11-19-2022 End: 11-20-2022 ambulatory NEGIN HARDWICK Facility:[facility] Start: 11-19-2022 End: 11-20-2022 Encounter for general adult medical examination without abnormal findings NEGIN HARDWICK Facility:[facility] Start: 08-21-2022 End: 08-22-[address] DEAN LISTED REQUEST Facility:[facility] Start: 06-13-2022 End: 06-13-2022 ambulatory NEGIN HARDWICK Facility:[facility] Start: 02-22-2022 End: 02-23-2022 ambulatory NEGIN HARDWICK Facility:[facility] Start: 02-12-2022 End: 02-13-2022 ambulatory NEGIN HARDWICK Facility:[facility] Payers Date Payer Category Payer Unknown [id number] 2.16.84 [id number] 1970 Unknown [id number] 2.16.84 [id number] 1970 Unknown [id number] 2.16.84 [id number] 1960 Self-pay 1960 Unknown [id number] 1960 Unknown Unknown [id number] 2.16.84 [id number] Unknown [id number] 2.16.84 [id number] Problems Active Problems Problem Classification Problem Date [...] 02-14-2022 Episodic Other aftercare (1 source) 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; Translations: [OTH [facility] CURRENT DRUG THERAPY] Onset: 06-14-2022 Episodic Other non-traumatic joint disorders (4 sources) Pain in left shoulder; Translations: [PAIN IN LEFT SHOULDER] Onset: 06-13-2022 Episodic Results Test Name Value Interpretation Reference Range Facility GLYCOHEMOGLOBIN A1Con 2022 ADA RECOMMENDATION SEE BELOW Normal [facility] Comment on above: Result Comment: ADA RECOMMENDED LIMIT 4.0 - 6.0 ADA THERAPEUTIC TARGET < 7.0 ACTION SUGGESTED > 7.0 Performed By: #### D ATA1C #### [facility] [address] [place] [address] Dr. Ayleen Navarro Glucose [Mass/Vol] 192 mg/dL Normal [facility] Comment on above: Performed By: #### D ATA1C #### [facility] [address] [address] [address] Ayleen Navarro HbA1c (Bld) [Mass fraction] 8.3 % Critically high 4.5-6.2 [facility] Comment on above: Performed By: #### D ATA1C #### [facility] [address] [address] [address] Ayleen Navarro GLYCOHEMOGLOBIN A1Con 2021 ADA RECOMMENDATION SEE BELOW Normal [facility] Comment on above: Result Comment: ADA RECOMMENDED LIMIT 4.0 - 6.0 ADA THERAPEUTIC TARGET < 7.0 ACTION SUGGESTED > 7.0 Performed By: #### D ATA1C ####[facility] [address] [address]Dr. Ayleen Navarro Glucose [Mass/Vol] 180 mg/dL Normal [facility] Comment on above: Performed By: #### D ATA1C ####[facility] [address] [address]Dr. Ayleen Navarro HbA1c (Bld) [Mass fraction] 7.9 % Critically high 4.5-6.2 [facility] Comment on above: Performed By: #### D ATA1C ####[facility] [address] [address]Dr. Ayleen Navarro CBC AUTO DIFFon 06-13-2022 BASO # 0.1 103/ul Normal 0.0-0.1 [facility] Comment on above: Performed By: #### C BC #### [facility] [address] [address] [address] Ayleen Navarro Basophils/100 WBC (Bld) 0.7 % Normal 0.2-2.0 [facility] Comment on above: Performed By: #### C BC #### [facility] [address] [address] [address] Ayleen Navarro EO # 0.2 103/ul Normal 0.0-0.7 [facility] Comment on above: Performed By: #### C BC #### [facility] [address] [place] [address] Dr. Ayleen Navarro Eosinophils/100 WBC (Bld) 2.1 % Normal 0.9-7.0 [facility] Comment on above: Performed By: #### C BC #### [facility] [address] [place] [address] Dr. Ayleen Navarro Erythrocyte distribution width (RBC) [Ratio] 12.6 % Normal 11.0-15.0 [facility] Comment on above: Performed By: #### C BC #### [facility] [address] [place] [address] Dr. Ayleen Navarro Hematocrit (Bld) [Volume fraction] 42.8 % Normal 36.0-48.0 [facility] Comment on above: Performed By: #### C BC #### [facility] [address] [place] [address] Dr. Ayleen Navarro Hemoglobin (Bld) [Mass/Vol] 14.3 g/dL Normal 12.0-16.0 [facility] Comment on above: Performed By: #### C BC #### [facility] [address] [place] [address] Dr. Ayleen Navarro IG # 0.05 10e3/ul Critically high 0.00-0.03 [facility] Comment on above: Performed By: #### C BC #### [facility] [address] [place] [address] Dr. Ayleen Navarro IG % 0.5 % Normal 0.0-0.5 [facility] Comment on above: Performed By: #### C BC #### [facility] [address] [place] [address] Dr. Ayleen Navarro LYMPH # 3.4 103/ul Normal 1.2-3.8 [facility] Comment on above: Performed By: #### C BC #### [facility] [address] [place] [address] Dr. Ayleen Navarro Lymphocytes/100 WBC (Bld) 31.5 % Normal 20.5-60.0 [facility] Comment on above: Performed By: #### C BC #### [facility] [address] [place] [address] Dr. Ayleen Navarro MANUAL DIFF REQ NO Normal [facility] Comment on above: Performed By: #### C BC #### [facility] [address] [place] [address] Dr. Ayleen Navarro MCH (RBC) [Entitic mass] 29.3 pg Normal 26.7-34.0 [facility] Comment on above: Performed By: #### C BC #### [facility] [address] [place] [address] Dr. Ayleen Navarro MCHC (RBC) [Mass/Vol] 33.4 g/dL Normal 29.9-35.2 [facility] Comment on above: Performed By: #### C BC #### [facility] [address] [place] [address] Dr. Ayleen Navarro MCV (RBC) [Entitic vol] 87.7 fL Normal 81.0-99.0 [facility] Comment on above: Performed By: #### C BC #### [facility] [address] [place] [address] Dr. Ayleen Navarro MONO # 0.6 103/ul Normal 0.3-0.8 [facility] Comment on above: Performed By: #### C BC #### [facility] [address] [place] [address] Dr. Ayleen Navarro Monocytes/100 WBC (Bld) 5.5 % Normal 1.7-12.0 [facility] Comment on above: Performed By: #### C BC #### [facility] [address] [place] [address] Dr. Ayleen Navarro NEUT # 6.4 103/ul Normal 1.4-6.5 [facility] Comment on above: Performed By: #### C BC #### [facility] [address] [place] [address] Dr. Ayleen Navarro Neutrophils/100 WBC (Bld) 59.7 % Normal 43.0-75.0 [facility] Comment on above: Performed By: #### C BC #### [facility] [address] [place] [address] Dr. Ayleen Navarro Platelet mean volume (Bld) [Entitic vol] 10.9 fL Normal 9.5-13.5 [facility] Comment on above: Performed By: #### C BC #### [facility] [address] [place] [address] Dr. Ayleen Navarro PLT 229 103/ul Normal 150-450 [facility] Comment on above: Performed By: #### C BC #### [facility] [address] [place] [address] Dr. Ayleen Navarro RBC 4.88 106/ul Normal 4.20-5.40 [facility] Comment on above: Performed By: #### C BC #### [facility] [address] [place] [address] Dr. Ayleen Navarro WBC 10.7 103/ul Normal 4.0-11.0 [facility] Comment on above: Performed By: #### C BC #### [facility] [address] [place] [address] Dr. Ayleen Navarro PROF 14(COMP METB)on 06-13-2 022 Albumin [Mass/Vol] 3.2 g/dL Critically low 3.4-5.0 [facility] Comment on above: Performed By: #### H BENI, CMP #### [facility] [address] [place] [address] Dr. Ayleen Navarro Albumin/Globulin [Mass ratio] 0.8 {ratio} Normal [facility] Comment on above: Performed By: #### H BENI, CMP #### [facility] [address] [place] [address] Dr. Ayleen Navarro ALP [Catalytic activity/Vol] 76 U/L Normal 46-116 [facility] Comment on above: Performed By: #### H BENI, CMP #### [facility] [address] [place] [address] Dr. Ayleen Navarro ALT [Catalytic activity/Vol] 24 U/L Normal 14-59 [facility] Comment on above: Performed By: #### H BENI, CMP #### [facility] [address] [address] [address] Ayleen Navarro Anion gap [Moles/Vol] 8.5 mmol/L Normal [facility] Comment on above: Performed By: #### H RITAPN, CMP #### [facility] [address] [address] [address] Ayleen Navarro AST [Catalytic activity/Vol] 4 U/L Critically low 15-37 [facility] Comment on above: Performed By: #### H RITAPN, CMP #### [facility] [address] [address] [address] Ayleen Navarro Bilirubin [Mass/Vol] 0.2 mg/dL Normal 0.2-1.0 [facility] Comment on above: Performed By: #### H BENI, CMP #### [facility] [address] [place] [address] Dr. Ayleen Navarro Calcium [Mass/Vol] 8.8 mg/dL Normal 8.5-10.1 [facility] Comment on above: Performed By: #### H BENI, CMP #### [facility] [address] [place] [address] Dr. Ayleen Navarro Chloride [Moles/Vol] 99 mmol/L Normal 98-107 [facility] Comment on above: Performed By: #### H BENI, CMP #### [facility] [address] [place] [address] Dr. Ayleen Navarro CO2 [Moles/Vol] 29.9 mmol/L Normal 21.0-32.0 [facility] Comment on above: Performed By: #### H RITAPN, CMP #### [facility] [address] [place] [address] Dr. Ayleen Navarro Creatinine [Mass/Vol] 0.88 mg/dL Normal 0.55-1.02 [facility] Comment on above: Performed By: #### H RITAPN, CMP #### [facility] [address] [place] [address] Dr. Ayleen Navarro EGFR-AF CYPRIOT >60 Normal >=60 [facility] Comment on above: Performed By: #### H RITAPN, CMP #### [facility] [address] [address] [address] Ayleen Navarro EGFR-NON AF CYPRIOT >60 Normal >=60 [facility] Comment on above: Performed By: #### H BENI, CMP #### [facility] [address] [address] [address] Ayleen Navarro Globulin (S) [Mass/Vol] 3.9 g/dL Normal [facility] Comment on above: Performed By: #### H RITAPN, CMP #### [facility] [address] [address] [address] Ayleen Navarro Glucose [Mass/Vol] 245 mg/dL Critically high 74-106 T [facility] Comment on above: Performed By: #### H BENI, CMP #### [facility] [address] [place] [address] Dr. Ayleen Navarro Potassium [Moles/Vol] 3.4 mmol/L Critically low 3.5-5.1 [facility] Comment on above: Performed By: #### H BENI, CMP #### [facility] [address] [place] [address] Dr. Ayleen Navarro Protein [Mass/Vol] 7.1 g/dL Normal 6.4-8.2 [facility] Comment on above: Performed By: #### H BENI, CMP #### [facility] [address] [place] [address] Dr. Ayleen Navarro Sodium [Moles/Vol] 134 mmol/L Critically low 136-145 Th [facility] Comment on above: Performed By: #### H BENI, CMP #### [facility] [address] [place] [address] Dr. Ayleen Navarro Urea nitrogen [Mass/Vol] 18.0 mg/dL Normal 7.0-18.0 [facility] Comment on above: Performed By: #### H BENI, CMP #### [facility] [address] [address] [address] Ayleen Navarro Urea nitrogen/Creatinine [Mass ratio] 20.5 mg/mg Normal [facility] Comment on above: Performed By: #### H BENI, CMP #### [facility] [address] [place], [place] [address] Dr. Ayleen Navarro TROPONIN, HIGH SENSITIVITYon 06-13-2022 HSTROP <4.0 Normal 4.0-51.3 [facility] Comment on above: Result Comment: CUT- OFF POINTS HAVE BEEN ESTABLISHED BASED ON THE FOURTH UNIVERSAL DEFINITIONS OF MYOCARDIAL INFARCTION. THE UPPER REFERENCE LIMIT (URL) OF TROPONIN, DEFINED THE 99TH PERCENTILE OF cTnI DISTRIBUTION IN A REFERENCE POPULATION, HAS BEEN CONFIRMED THE DECISION THRESHOLD FOR NM DIAGNOSIS. Performed By: #### H BENI, CMP #### [facility] [address] [place], [place] [address] Dr. Ayleen Navarro HSTROP 8.6 pg/mL Normal 4.0-51.3 [facility] Comment on above: Result Comment: CUT- OFF POINTS HAVE BEEN ESTABLISHED BASED ON THE FOURTH UNIVERSAL DEFINITIONS OF MYOCARDIAL INFARCTION. THE UPPER REFERENCE LIMIT (URL) OF TROPONIN, DEFINED THE 99TH PERCENTILE OF cTnI DISTRIBUTION IN A REFERENCE POPULATION, HAS BEEN CONFIRMED THE DECISION THRESHOLD FOR NM DIAGNOSIS. Performed By: #### H STROPN ####[facility] [address] [place], [place] [address]Dr. Ayleen Navarro XR CHEST 1 Von 06-13-2022 [...] Radha GONZALEZ Date: 2022-06-13 04:44 Normal [facility] INSULINon 02-23-2022 Insulin 22.9 uIU/mL Normal 2.6-24.9 [facility] Comment on above: Performed By: #### I NSULIN #### [facility] [address] [place], [place] [address] Dr. Ayleen Navarro CBC AUTO DIFFon 02-22-2022 BASO # 0.1 103/ul Normal 0.0-0.1 [facility] Comment on above: Performed By: #### C BC ####[facility] [address] [address]Dr. Ayleen Navarro Basophils/100 WBC (Bld) 0.9 % Normal 0.2-2.0 [facility] Comment on above: Performed By: #### C BC ####[facility] [address] [address]Dr. Ayleen Navarro EO # 0.2 103/ul Normal 0.0-0.7 [facility] Comment on above: Performed By: #### C BC ####[facility] [address] [place], [place] [address]Dr. Ayleen Navarro Eosinophils/100 WBC (Bld) 2.6 % Normal 0.9-7.0 [facility] Comment on above: Performed By: #### C BC ####[facility] [address] [place], [place] [address]Dr. Ayleen Navarro Erythrocyte distribution width (RBC) [Ratio] 13.3 % Normal 11.0-15.0 [facility] Comment on above: Performed By: #### C BC ####[facility] [address] [place], [place] [address]Dr. Ayleen Navarro Hematocrit (Bld) [Volume fraction] 42.8 % Normal 36.0-48.0 [facility] Comment on above: Performed By: #### C BC ####[facility] [address] [place], [place] [address]Dr. Ayleen Navarro Hemoglobin (Bld) [Mass/Vol] 14.3 g/dL Normal 12.0-16.0 [facility] Comment on above: Performed By: #### C BC ####[facility] [address] [place], [place] [address]Dr. Ayleen Navarro IG # 0.05 10e3/ul Critically high 0.00-0.03 [facility] Comment on above: Performed By: #### C BC ####[facility] [address] [place], [place] [address]Dr. Yizeynep Navarro IG % 0.5 % Normal 0.0-0.5 [facility] Comment on above: Performed By: #### C BC ####[facility] [address] [address]Dr. Ayleen Ramon LYMPH # 3.0 103/ul Normal 1.2-3.8 [facility] Comment on above: Performed By: #### C BC ####[facility] [address] [address]Dr. Libbyzeynep Navarro Lymphocytes/100 WBC (Bld) 32.4 % Normal 20.5-60.0 [facility] Comment on above: Performed By: #### C BC ####[facility] [address] [address]Dr. Ayleen Navarro MANUAL DIFF REQ NO Normal [facility] Comment on above: Performed By: #### C BC ####[facility] [address] [place], [place] [address]Dr. Libbyzeynep Navarro MCH (RBC) [Entitic mass] 29.5 pg Normal 26.7-34.0 [facility] Comment on above: Performed By: #### C BC ####[facility] [address] [place], [place] [address]Dr. Ayleen Ramon MCHC (RBC) [Mass/Vol] 33.4 g/dL Normal 29.9-35.2 [facility] Comment on above: Performed By: #### C BC ####[facility] [address] [place], [place] [address]Dr. Ayleen Navarro MCV (RBC) [Entitic vol] 88.2 fL Normal 81.0-99.0 [facility] Comment on above: Performed By: #### C BC ####[facility] [address] [place], [place] [address]Dr. Ayleen Navarro MONO # 0.6 103/ul Normal 0.3-0.8 [facility] Comment on above: Performed By: #### C BC ####[facility] [address] [place], [place] [address]Dr. Ayleen Navarro Monocytes/100 WBC (Bld) 6.7 % Normal 1.7-12.0 [facility] Comment on above: Performed By: #### C BC ####[facility] [address] [id number] Navarro NEUT # 5.3 103/ul Normal 1.4-6.5 [facility] Comment on above: Performed By: #### C BC ####[facility] [address] [id number] Navarro Neutrophils/100 WBC (Bld) 56.9 % Normal 43.0-75.0 [facility] Comment on above: Performed By: #### C BC ####[facility] [address] [id number] Navarro Platelet mean volume (Bld) [Entitic vol] 11.0 fL Normal 9.5-13.5 [facility] Comment on above: Performed By: #### C BC ####[facility] [address] [id number] Navarro PLT 239 103/ul Normal 150-450 [facility] Comment on above: Performed By: #### C BC ####[facility] [address] [id number] Navarro RBC 4.85 106/ul Normal 4.20-5.40 [facility] Comment on above: Performed By: #### C BC ####[facility] [address] [id number] Navarro WBC 9.3 103/ul Normal 4.0-11.0 [facility] Comment on above: Performed By: #### C BC ####[facility] [address] [id number]. Ayleen Navarro FREE THYROXINE INDEX T7on FTI 3.36 Normal 1.30-4.50 [facility] Comment on above: Performed By: #### L IPID, CMP, T7, TSH #### [facility] [address] [place], [place] [address] Dr. Ayleen Navarro T3U 32.0 % Normal 30.0-39.0 [facility] Comment on above: Performed By: #### L IPID, CMP, T7, TSH #### [facility] [address] [address] [address] Ayleen Navarro T4 [Mass/Vol] 10.50 ug/dL Normal 4.80-13.90 [facility] Comment on above: Performed By: #### L IPID, CMP, T7, TSH #### [facility] [address] [address] [address] Ayleen Navarro IRONon 02-22-2022 Iron [Mass/Vol] 117.0 ug/dL Normal 50.0-170.0 [facility] Comment on above: Performed By: #### I FEDERICO ####[facility] [address] [address]Dr. Ayleen Navarro LIPID PROFILEon 02-22-2022 CHOL-HDL RATIO NORM SEE BELOW Normal [facility] Comment on above: Result Comment: 3.3 - 4.4 LOW RISK 4.4 - 7.1 AVERAGE RISK 7.1 - 11.0 MODERATE RISK >11.0 HIGH RISK Performed By: #### L IPID, CMP, T7, TSH #### [facility] [address] [address] [address] Ayleen Navarro Cholesterol [Mass/Vol] 161 mg/dL Normal <=200 [facility] Comment on above: Performed By: #### L IPID, CMP, T7, TSH #### [facility] [address] [address] [address] Ayleen Navarro Cholesterol in HDL [Mass/Vol] 42 mg/dL Normal 40-60 [facility] Comment on above: Performed By: #### L IPID, CMP, T7, TSH #### [facility] [address] [address] [address] Ayleen Navarro Cholesterol in LDL [Mass/Vol] 98.4 mg/dL Normal [facility] Comment on above: Performed By: #### L IPID, CMP, T7, TSH #### [facility] [address] [address] [address] Ayleen Navarro Cholesterol.total/Cho lesterol in HDL [Mass ratio] 3.8 {ratio} Normal [facility] Comment on above: Performed By: #### L IPID, CMP, T7, TSH #### [facility] [address] [id number] Dr. Ayleen Navarro HDL NORMAL > or = 60 mg/dl - LO W CARDIOVASCULAR RISK <40 mg/dl - HIGH CARDIOVASCULAR RISK Normal [facility] Comment on above: Performed By: #### L IPID, CMP, T7, TSH #### [facility] [address] [address] [address] Ayleen Navarro LDL CALC NORMAL SEE BELOW Normal [facility] Comment on above: Result Comment: <100 mg/dl OPTIMAL 100 - 129 mg/dl NEAR OR ABOVE OPTIMAL 130 - 159 mg/dl BORDERLINE HIGH 160 - 189 mg/dl HIGH >190 mg/dl VERY HIGH Performed By: #### L IPID, CMP, T7, TSH #### [facility] [address] [address] [address] Ayleen Navarro Triglyceride [Mass/Vol] 103 mg/dL Normal <=150 [facility] Comment on above: Performed By: #### L IPID, CMP, T7, TSH #### [facility] [address] [address] [address] Ayleen Navarro VLDL CALC 20.6 mg/dL Normal [facility] Comment on above: Performed By: #### L IPID, CMP, T7, TSH #### [facility] [address] [address] [address] Ayleen Navarro PROF 14(COMP METB)on 022 Albumin [Mass/Vol] 3.4 g/dL Normal 3.4-5.0 [facility] Comment on above: Performed By: #### L IPID, CMP, T7, TSH #### [facility] [address] [address] [address] Ayleen Navarro Albumin/Globulin [Mass ratio] 0.9 {ratio} Normal [facility] Comment on above: Performed By: #### L IPID, CMP, T7, TSH #### [facility] [address] [address] [address] Ayleen Navarro ALP [Catalytic activity/Vol] 71 U/L Normal 46-116 [facility] Comment on above: Performed By: #### L IPID, CMP, T7, TSH #### [facility] [address] [address] [address] Ayleen Navarro ALT [Catalytic activity/Vol] 25 U/L Normal 14-59 [facility] Comment on above: Performed By: #### L IPID, CMP, T7, TSH #### [facility] [address] [address] [address] Ayleen Navarro Anion gap [Moles/Vol] 10.1 mmol/L Normal Th [facility] Comment on above: Performed By: #### L IPID, CMP, T7, TSH #### [facility] [address] [place] [address] Dr. Ayleen Navarro AST [Catalytic activity/Vol] 11 U/L Critically low 15-37 [facility] Comment on above: Performed By: #### L IPID, CMP, T7, TSH #### [facility] [address] [address] [address] Ayleen Navarro Bilirubin [Mass/Vol] 0.5 mg/dL Normal 0.2-1.0 [facility] Comment on above: Performed By: #### L IPID, CMP, T7, TSH #### [facility] [address] [place] [address] Dr. Ayleen Navarro Calcium [Mass/Vol] 8.8 mg/dL Normal 8.5-10.1 [facility] Comment on above: Performed By: #### L IPID, CMP, T7, TSH #### [facility] [address] [address] [address] Ayleen Navarro Chloride [Moles/Vol] 100 mmol/L Normal 98-107 [facility] Comment on above: Performed By: #### L IPID, CMP, T7, TSH #### [facility] [address] [place] [address] Dr. Ayleen Navarro CO2 [Moles/Vol] 29.5 mmol/L Normal 21.0-32.0 [facility] Comment on above: Performed By: #### L IPID, CMP, T7, TSH #### [facility] [address] [address] [address] Ayleen Navarro Creatinine [Mass/Vol] 0.61 mg/dL Normal 0.55-1.02 [facility] Comment on above: Performed By: #### L IPID, CMP, T7, TSH #### [facility] [address] [place] [address] Dr. Ayleen Navarro EGFR-AF CYPRIOT >60 Normal >=60 [facility] Comment on above: Performed By: #### L IPID, CMP, T7, TSH #### [facility] [address] [place] [address] Dr. Ayleen Navarro EGFR-NON AF CYPRIOT >60 Normal >=60 [facility] Comment on above: Performed By: #### L IPID, CMP, T7, TSH #### [facility] [address] [place] [address] Dr. Ayleen Navarro Globulin (S) [Mass/Vol] 3.9 g/dL Normal [facility] Comment on above: Performed By: #### L IPID, CMP, T7, TSH #### [facility] [address] [place] [address] Dr. Ayleen Navarro Glucose [Mass/Vol] 119 mg/dL Critically high 74-106 [facility] Comment on above: Performed By: #### L IPID, CMP, T7, TSH #### [facility] [address] [place] [address] Dr. Ayleen Navarro Potassium [Moles/Vol] 3.6 mmol/L Normal 3.5-5.1 [facility] Comment on above: Performed By: #### L IPID, CMP, T7, TSH #### [facility] [address] [place] [address] Dr. Ayleen Navarro Protein [Mass/Vol] 7.3 g/dL Normal 6.4-8.2 [facility] Comment on above: Performed By: #### L IPID, CMP, T7, TSH #### [facility] [address] [address] [address] Ayleen Navarro Sodium [Moles/Vol] 136 mmol/L Normal 136-145 [facility] Comment on above: Performed By: #### L IPID, CMP, T7, TSH #### [facility] [address] [address] [address] Ayleen Navarro Urea nitrogen [Mass/Vol] 19.0 mg/dL Critically high 7.0-18.0 [facility] Comment on above: Performed By: #### L IPID, CMP, T7, TSH #### [facility] [address] [address] [address] Ayleen Navarro Urea nitrogen/Creatinine [Mass ratio] 31.1 mg/mg Normal [facility] Comment on above: Performed By: #### L IPID, CMP, T7, TSH #### [facility] [address] [address] [address] Ayleen Navarro TSHon 02-22-2022 TSH 0.964 uIU/mL Normal 0.358-3.740 [facility] Comment on above: Performed By: #### L IPID, CMP, T7, TSH #### [facility] [address] [address] [address] Ayleen Navarro GLYCOHEMOGLOBIN A1Con 2021 ADA RECOMMENDATION SEE BELOW Normal [facility] Comment on above: Result Comment: ADA RECOMMENDED LIMIT 4.0 - 6.0 ADA THERAPEUTIC TARGET < 7.0 ACTION SUGGESTED > 7.0 Performed By: #### A 1C ####[facility] [id number] [address]Dr[address] Ayleen Navarro Glucose [Mass/Vol] 140 mg/dL Normal [facility] Comment on above: Performed By: #### A 1C ####[facility] [id number] [address]Dr. Ayleen Navarro HbA1c (Bld) [Mass fraction] 6.5 % Critically high 4.5-6.2 [facility] Comment on above: Performed By: #### A 1C ####[facility] [id number] [address]Dr. Ayleen Navarro Summary Purpose Family History No Family History Records Found Advance Directives No Advanced Directives Records Found Additional Source Comments INFORMATION SOURCE (unrecogn ized section and content) DATE CREATED AUTHOR 11/24/2022 Rina rivera FOR RECORDS PERTAINING TO PATIENTS WHO ARE [...] BE BASED ON THE PRIMARY CLINICAL RECORDS. [facility] [employer] provides no warranty or guarantee of the accuracy or completeness of information in this document.
== END 2024-02-04 09:40 | disposition home or self-care (01) ==
LOC: RAD 09:42
PROVIDERS: PCP Nurse Practitioner Family; Visit Provider Nurse Practitioner Family
DX: M25.562 Pain in left knee (principal); M17.12 Unilateral primary osteoarthritis, left knee
CPT/HCPCS: 73562

== ENCOUNTER 2024-04-03 06:09 | Emergency (ER) | payer BC, SELFPAY ==
[2024-04-03 06:13] VITALS: BP 132/72; PULSE 73; TEMP 36.5; O2SAT 97; BMI 42.5
--- OUTSIDE RECORDS SUMMARY | 2024-04-03 06:15 | XMS_ITS | CCD ---
Author Organization [facility] Care Team Providers Care Manager Biostatistics Name Role Phone NEGIN HARDWICK Admitting Unavailable [...] Unavailable REQUEST, NONE LISTED Consulting Unavaila ble RNOEN, NEGIN Admitting Unavailable RONEN, NEGIN Attending Unavailable RONEN, NEGIN Primary Care Unavailable REQUEST, NONE LISTED Consulting Unavaila ble RONEN, NEGIN Admitting Unavailable RONEN, NEGIN Attending Unavailable RONEN, NEGIN Primary Care Unavailable RONEN, NEGIN Consulting Unavailable Allergies Allergy Classification Reported Allergen(s) Allergy Type Date of Onset Reaction(s) Facility (1 source) predniSONE Drug Allergy 12-09-2020 [facility] Repository Problems Active Problems Problem Classification [...] 02-14-2022 Episodic Other aftercare (1 source) 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 Ayleen Navarro Glucose [Mass/Vol] 192 mg/dL Normal The [facility] Comment on above: Performed By: #### D ATA1C #### [facility] [address] [address] [address] Ayleen Navarro HbA1c (Bld) [Mass fraction] 8.3 % Critically high 4.5-6.2 [facility] Comment on above: Performed By: #### D ATA1C #### [facility] [address] [address] [address] Ayleen Navarro GLYCOHEMOGLOBIN A1Con 2021 ADA RECOMMENDATION SEE BELOW Normal The [facility] Comment on above: Result Comment: ADA RECOMMENDED LIMIT 4.0 - 6.0 ADA THERAPEUTIC TARGET < 7.0 ACTION SUGGESTED > 7.0 Performed By: #### D ATA1C ####[facility] [address] [address]Dr. Ayleen Navarro Glucose [Mass/Vol] 180 mg/dL Normal The [facility] Comment on above: Performed By: #### D ATA1C ####[facility] [address] [address]Dr. Ayleen Navarro HbA1c (Bld) [Mass fraction] 7.9 % Critically high 4.5-6.2 [facility] Comment on above: Performed By: #### D ATA1C ####[facility] [address] [address]Dr. Ayleen Navarro CBC AUTO DIFFon 06-13-2022 BASO # 0.1 103/ul Normal 0.0-0.1 [facility] Comment on above: Performed By: #### C BC #### [facility] [address] [address] [address] Ayleen Navarro Basophils/100 WBC (Bld) 0.7 % Normal 0.2-2.0 [facility] Comment on above: Performed By: #### C BC #### [facility] [address] [address] [address] Ayleen Navarro EO # 0.2 103/ul Normal 0.0-0.7 [facility] Comment on above: Performed By: #### C BC #### [facility] [address] [address] [address] Ayleen Navarro Eosinophils/100 WBC (Bld) 2.1 % Normal 0.9-7.0 [facility] Comment on above: Performed By: #### C BC #### [facility] [address] [place] [address] Dr. Ayleen Navarro Erythrocyte distribution width (RBC) [Ratio] 12.6 % Normal 11.0-15.0 [facility] Comment on above: Performed By: #### C BC #### [facility] [address] [address] [address] Ayleen Navarro Hematocrit (Bld) [Volume fraction] 42.8 % Normal 36.0-48.0 [facility] Comment on above: Performed By: #### C BC #### [facility] [address] [address] [address] Ayleen Navarro Hemoglobin (Bld) [Mass/Vol] 14.3 g/dL Normal 12.0-16.0 [facility] Comment on above: Performed By: #### C BC #### [facility] [address] [address] [address] Ayleen Navarro IG # 0.05 10e3/ul Critically high 0.00-0.03 [facility] Comment on above: Performed By: #### C BC #### [facility] [address] [address] [address] Ayleen Navarro IG % 0.5 % Normal 0.0-0.5 [facility] Comment on above: Performed By: #### C BC #### [facility] [address] [place] [address] Dr. Ayleen Navarro LYMPH # 3.4 103/ul Normal 1.2-3.8 [facility] Comment on above: Performed By: #### C BC #### [facility] [address] [place] [address] Dr. Ayleen Navarro Lymphocytes/100 WBC (Bld) 31.5 % Normal 20.5-60.0 [facility] Comment on above: Performed By: #### C BC #### [facility] [address] [place] [address] Dr. Ayleen Navarro MANUAL DIFF REQ NO Normal [facility] Comment on above: Performed By: #### C BC #### [facility] [address] [place] [address] Dr. Ayleen Navarro MCH (RBC) [Entitic mass] 29.3 pg Normal 26.7-34.0 [facility] Comment on above: Performed By: #### C BC #### [facility] [address] [place] [address] Dr. Ayleen Navarro MCHC (RBC) [Mass/Vol] 33.4 g/dL Normal 29.9-35.2 [facility] Comment on above: Performed By: #### C BC #### [facility] [address] [place] [address] Dr. Ayleen Navarro MCV (RBC) [Entitic vol] 87.7 fL Normal 81.0-99.0 [facility] Comment on above: Performed By: #### C BC #### [facility] [address] [place] [address] Dr. Ayleen Navarro MONO # 0.6 103/ul Normal 0.3-0.8 [facility] Comment on above: Performed By: #### C BC #### [facility] [address] [place] [address] Dr. Ayleen Navarro Monocytes/100 WBC (Bld) 5.5 % Normal 1.7-12.0 [facility] Comment on above: Performed By: #### C BC #### [facility] [address] [place] [address] Dr. Ayleen Navarro NEUT # 6.4 103/ul Normal 1.4-6.5 [facility] Comment on above: Performed By: #### C BC #### [facility] [address] [place] [address] Dr. Ayleen Navarro Neutrophils/100 WBC (Bld) 59.7 % Normal 43.0-75.0 [facility] Comment on above: Performed By: #### C BC #### [facility] [address] [place] [address] Dr. Ayleen Navarro Platelet mean volume (Bld) [Entitic vol] 10.9 fL Normal 9.5-13.5 [facility] Comment on above: Performed By: #### C BC #### [facility] [address] [place] [address] Dr. Ayleen Navarro PLT 229 103/ul Normal 150-450 [facility] Comment on above: Performed By: #### C BC #### [facility] [address] [place] [address] Dr. Ayleen Navarro RBC 4.88 106/ul Normal 4.20-5.40 [facility] Comment on above: Performed By: #### C BC #### [facility] [address] [place] [address] Dr. Ayleen Navarro WBC 10.7 103/ul Normal 4.0-11.0 [facility] Comment on above: Performed By: #### C BC #### [facility] [address] [place] [address] Dr. Ayleen Navarro PROF 14(COMP METB)on 022 Albumin [Mass/Vol] 3.2 g/dL Critically low 3.4-5.0 [facility] Comment on above: Performed By: #### H BENI, CMP #### [facility] [address] [place] [address] Dr. Ayleen Navarro Albumin/Globulin [Mass ratio] 0.8 {ratio} Normal [facility] Comment on above: Performed By: #### H BENI, CMP #### [facility] [address] [address] [address] Ayleen Navarro ALP [Catalytic activity/Vol] 76 U/L Normal 46-116 [facility] Comment on above: Performed By: #### H STROPN, CMP #### [facility] [address] [address] [address] Aylene Navarro ALT [Catalytic activity/Vol] 24 U/L Normal 14-59 [facility] Comment on above: Performed By: #### H STROPN, CMP #### [facility] [address] [address] [address] Ayleen Navarro Anion gap [Moles/Vol] 8.5 mmol/L Normal [facility] Comment on above: Performed By: #### H STROPN, CMP #### [facility] [address] [address] [address] Ayleen Navarro AST [Catalytic activity/Vol] 4 U/L Critically low 15-37 [facility] Comment on above: Performed By: #### H STROPN, CMP #### [facility] [address] [address] [address] Ayleen Navarro Bilirubin [Mass/Vol] 0.2 mg/dL Normal 0.2-1.0 [facility] Comment on above: Performed By: #### H STROPN, CMP #### [facility] [address] [address] [address] Ayleen Navarro Calcium [Mass/Vol] 8.8 mg/dL Normal 8.5-10.1 [facility] Comment on above: Performed By: #### H STROPN, CMP #### [facility] [address] [address] [address] Ayleen Navarro Chloride [Moles/Vol] 99 mmol/L Normal 98-107 [facility] Comment on above: Performed By: #### H STROPN, CMP #### [facility] [address] [address] [address] Ayleen Navarro CO2 [Moles/Vol] 29.9 mmol/L Normal 21.0-32.0 [facility] Comment on above: Performed By: #### H STROPN, CMP #### [facility] [address] [address] [address] Ayleen Navarro Creatinine [Mass/Vol] 0.88 mg/dL Normal 0.55-1.02 [facility] Comment on above: Performed By: #### H STROPN, CMP #### [facility] [address] [address] [address] Ayleen Navarro EGFR-AF GUYANESE >60 Normal >=60 [facility] Comment on above: Performed By: #### H STROPN, CMP #### [facility] [address] [address] [address] Ayleen Navarro EGFR-NON AF GUYANESE >60 Normal >=60 [facility] Comment on above: Performed By: #### H STROPN, CMP #### [facility] [address] [address] [address] Ayleen Navarro Globulin (S) [Mass/Vol] 3.9 g/dL Normal [facility] Comment on above: Performed By: #### H STROPN, CMP #### [facility] [address] [address] [address] Ayleen Navarro Glucose [Mass/Vol] 245 mg/dL Critically high 74-106 [facility] Comment on above: Performed By: #### H STROPN, CMP #### [facility] [address] [address] [address] Ayleen Navarro Potassium [Moles/Vol] 3.4 mmol/L Critically low 3.5-5.1 [facility] Comment on above: Performed By: #### H STROPN, CMP #### [facility] [address] [address] [address] Ayleen Navarro Protein [Mass/Vol] 7.1 g/dL Normal 6.4-8.2 [facility] Comment on above: Performed By: #### H STROPN, CMP #### [facility] [address] [address] [address] Ayleen Navarro Sodium [Moles/Vol] 134 mmol/L Critically low 136-145 [facility] Comment on above: Performed By: #### H STROPN, CMP #### [facility] [address] [place], [place] [address] Dr. Ayleen Navarro Urea nitrogen [Mass/Vol] 18.0 mg/dL Normal 7.0-18.0 [facility] Comment on above: Performed By: #### H STROPN, CMP #### [facility] [address] [place], [place] [address] Dr. Ayleen Navarro Urea nitrogen/Creatinine [Mass ratio] 20.5 mg/mg Normal [facility] Comment on above: Performed By: #### H STROPN, CMP #### [facility] [address] [place], [place] [address] Dr. Ayleen Navarro TROPONIN, HIGH SENSITIVITYon 06-13-2022 HSTROP 8.6 pg/mL Normal 4.0-51.3 [facility] Comment on above: Result Comment: CUT- OFF POINTS HAVE BEEN ESTABLISHED BASED ON THE FOURTH UNIVERSAL DEFINITIONS OF MYOCARDIAL INFARCTION. THE UPPER REFERENCE LIMIT (URL) OF TROPONIN, DEFINED THE 99TH PERCENTILE OF cTnI DISTRIBUTION IN A REFERENCE POPULATION, HAS BEEN CONFIRMED THE DECISION THRESHOLD FOR ME DIAGNOSIS. Performed By: #### H STROPN ####[facility] [address] [place], [place] [address]EbDr. Ayleen Navarro HSTROP <4.0 Normal 4.0-51.3 [facility] Comment on above: Result Comment: CUT- OFF POINTS HAVE BEEN ESTABLISHED BASED ON THE FOURTH UNIVERSAL DEFINITIONS OF MYOCARDIAL INFARCTION. THE UPPER REFERENCE LIMIT (URL) OF TROPONIN, DEFINED THE 99TH PERCENTILE OF cTnI DISTRIBUTION IN A REFERENCE POPULATION, HAS BEEN CONFIRMED THE DECISION THRESHOLD FOR ME DIAGNOSIS. Performed By: #### H STROPN, CMP #### [facility] [address] [place], [place] [address] Dr. Ayleen Navarro XR CHEST 1 Von [...] Radha GONZALEZ Date: 2022-06-13 04:44 Normal [facility] INSULINon 02-23-2022 Insulin 22.9 uIU/mL Normal 2.6-24.9 [facility] Comment on above: Performed By: #### I NSULIN #### [facility] [address] [address] [address] Ayleen Navarro CBC AUTO DIFFon 02-22-2022 BASO # 0.1 103/ul Normal 0.0-0.1 [facility] Comment on above: Performed By: #### C BC ####[facility] [address] [address]Dr. Ayleen Navarro Basophils/100 WBC (Bld) 0.9 % Normal 0.2-2.0 [facility] Comment on above: Performed By: #### C BC ####[facility] [address] [address]Dr. Ayleen Navarro EO # 0.2 103/ul Normal 0.0-0.7 [facility] Comment on above: Performed By: #### C BC ####[facility] [address] [address]Dr. Ayleen Navarro Eosinophils/100 WBC (Bld) 2.6 % Normal 0.9-7.0 [facility] Comment on above: Performed By: #### C BC ####[facility] [address] [address]Dr. Ayleen Navarro Erythrocyte distribution width (RBC) [Ratio] 13.3 % Normal 11.0-15.0 [facility] Comment on above: Performed By: #### C BC ####[facility] [address] [address]Dr. Ayleen Navarro Hematocrit (Bld) [Volume fraction] 42.8 % Normal 36.0-48.0 [facility] Comment on above: Performed By: #### C BC ####[facility] [address] [address]Dr. yAleen Navarro Hemoglobin (Bld) [Mass/Vol] 14.3 g/dL Normal 12.0-16.0 [facility] Comment on above: Performed By: #### C BC ####[facility] [address] [address]DrMiky Navarro IG # 0.05 10e3/ul Critically high 0.00-0.03 [facility] Comment on above: Performed By: #### C BC ####[facility] [address] [address]DrMiky Navarro IG % 0.5 % Normal 0.0-0.5 [facility] Comment on above: Performed By: #### C BC ####[facility] [address] [place], [place] [address]DrMiky Navarro LYMPH # 3.0 103/ul Normal 1.2-3.8 [facility] Comment on above: Performed By: #### C BC ####[facility] [address] [place], [place] [address]DrMiky Navarro Lymphocytes/100 WBC (Bld) 32.4 % Normal 20.5-60.0 [facility] Comment on above: Performed By: #### C BC ####[facility] [address] [place], [place] [address]DrMiky Navarro MANUAL DIFF REQ NO Normal [facility] Comment on above: Performed By: #### C BC ####[facility] [address] [place], [place] [address]DrMiky Navarro MCH (RBC) [Entitic mass] 29.5 pg Normal 26.7-34.0 [facility] Comment on above: Performed By: #### C BC ####[facility] [address] [place], [place] [address]DrMiky Navarro MCHC (RBC) [Mass/Vol] 33.4 g/dL Normal 29.9-35.2 [facility] Comment on above: Performed By: #### C BC ####[facility] [address] [place], [place] [address]DrMiky Navarro MCV (RBC) [Entitic vol] 88.2 fL Normal 81.0-99.0 [facility] Comment on above: Performed By: #### C BC ####[facility] [address] [place], [place] [address]Dr. Ayleen Navarro MONO # 0.6 103/ul Normal 0.3-0.8 [facility] Comment on above: Performed By: #### C BC ####[facility] [address] [place], [place] [address]Dr. Ayleen Ramon Monocytes/100 WBC (Bld) 6.7 % Normal 1.7-12.0 [facility] Comment on above: Performed By: #### C BC ####[facility] [address] [place], [place] [address]Dr. Ayleen Navarro NEUT # 5.3 103/ul Normal 1.4-6.5 [facility] Comment on above: Performed By: #### C BC ####[facility] [address] [place], [place] [address]Dr. Ayleen Ramon Neutrophils/100 WBC (Bld) 56.9 % Normal 43.0-75.0 [facility] Comment on above: Performed By: #### C BC ####[facility] [address] [place], [place] [address]Dr. Ayleen Navarro Platelet mean volume (Bld) [Entitic vol] 11.0 fL Normal 9.5-13.5 [facility] Comment on above: Performed By: #### C BC ####[facility] [address] [place], [place] [address]Dr. Ayleen Ramon PLT 239 103/ul Normal 150-450 [facility] Comment on above: Performed By: #### C BC ####[facility] [address] [place], [place] [address]Dr. Ayleen Ramon RBC 4.85 106/ul Normal 4.20-5.40 [facility] Comment on above: Performed By: #### C BC ####[facility] [address] [place], [place] [address]Dr. Ayleen Navarro WBC 9.3 103/ul Normal 4.0-11.0 [facility] Comment on above: Performed By: #### C BC ####[facility] [address] [address]Dr. Ayleen Navarro FREE THYROXINE INDEX T7on FTI 3.36 Normal 1.30-4.50 [facility] Comment on above: Performed By: #### L IPID, CMP, T7, TSH #### [facility] [address] [address] [address] Ayleen Navarro T3U 32.0 % Normal 30.0-39.0 [facility] Comment on above: Performed By: #### L IPID, CMP, T7, TSH #### [facility] [address] [address] [address] Ayleen Navarro T4 [Mass/Vol] 10.50 ug/dL Normal 4.80-13.90 [facility] Comment on above: Performed By: #### L IPID, CMP, T7, TSH #### [facility] [address] [address] [address] Ayleen Navarro IRONon 02-22-2022 Iron [Mass/Vol] 117.0 ug/dL Normal 50.0-170.0 [facility] Comment on above: Performed By: #### I FEDERICO ####[facility] [address] [address]Dr. Ayleen Navarro LIPID PROFILEon 02-22-2022 CHOL-HDL RATIO NORM SEE BELOW Normal [facility] Comment on above: Result Comment: 3.3 - 4.4 LOW RISK 4.4 - 7.1 AVERAGE RISK 7.1 - 11.0 MODERATE RISK >11.0 HIGH RISK Performed By: #### L IPID, CMP, T7, TSH #### [facility] [address] [address] [address] Ayleen Navarro Cholesterol [Mass/Vol] 161 mg/dL Normal <=200 [facility] Comment on above: Performed By: #### L IPID, CMP, T7, TSH #### [facility] [address] [address] [address] Ayleen Navarro Cholesterol in HDL [Mass/Vol] 42 mg/dL Normal 40-60 [facility] Comment on above: Performed By: #### L IPID, CMP, T7, TSH #### [facility] [address] [address] [address] Ayleen Navarro Cholesterol in LDL [Mass/Vol] 98.4 mg/dL Normal [facility] Comment on above: Performed By: #### L IPID, CMP, T7, TSH #### [facility] [address] [address] [address] Ayleen Navarro Cholesterol.total/Cho lesterol in HDL [Mass ratio] 3.8 {ratio} Normal [facility] Comment on above: Performed By: #### L IPID, CMP, T7, TSH #### [facility] [address] [address] [address] Ayleen Navarro HDL NORMAL > or = 60 mg/dl - LO W CARDIOVASCULAR RISK <40 mg/dl - HIGH CARDIOVASCULAR RISK Normal [facility] Comment on above: Performed By: #### L IPID, CMP, T7, TSH #### [facility] [address] [address] [address] Ayleen Navarro LDL CALC NORMAL SEE BELOW Normal [facility] Comment on above: Result Comment: <100 mg/dl OPTIMAL 100 - 129 mg/dl NEAR OR ABOVE OPTIMAL 130 - 159 mg/dl BORDERLINE HIGH 160 - 189 mg/dl HIGH >190 mg/dl VERY HIGH Performed By: #### L IPID, CMP, T7, TSH #### [facility] [address] [address] [address] Ayleen Navarro Triglyceride [Mass/Vol] 103 mg/dL Normal <=150 [facility] Comment on above: Performed By: #### L IPID, CMP, T7, TSH #### [facility] [address] [address] [address] Ayleen Navarro VLDL CALC 20.6 mg/dL Normal [facility] Comment on above: Performed By: #### L IPID, CMP, T7, TSH #### [facility] [address] [address] [address] Ayleen Navarro PROF 14(COMP METB)on 022 Albumin [Mass/Vol] 3.4 g/dL Normal 3.4-5.0 [facility] Comment on above: Performed By: #### L IPID, CMP, T7, TSH #### [facility] [address] [address] [address] Ayleen Navarro Albumin/Globulin [Mass ratio] 0.9 {ratio} Normal [facility] Comment on above: Performed By: #### L IPID, CMP, T7, TSH #### [facility] [address] [place] [address] Dr. Ayleen Navarro ALP [Catalytic activity/Vol] 71 U/L Normal 46-116 [facility] Comment on above: Performed By: #### L IPID, CMP, T7, TSH #### [facility] [address] [place] [address] Dr. Ayleen Navarro ALT [Catalytic activity/Vol] 25 U/L Normal 14-59 [facility] Comment on above: Performed By: #### L IPID, CMP, T7, TSH #### [facility] [address] [address] [address] Ayleen Navarro Anion gap [Moles/Vol] 10.1 mmol/L Normal [facility] Comment on above: Performed By: #### L IPID, CMP, T7, TSH #### [facility] [address] [place] [address] Dr. Ayleen Navarro AST [Catalytic activity/Vol] 11 U/L Critically low 15-37 [facility] Comment on above: Performed By: #### L IPID, CMP, T7, TSH #### [facility] [address] [place] [address] Dr. Ayleen Navarro Bilirubin [Mass/Vol] 0.5 mg/dL Normal 0.2-1.0 [facility] Comment on above: Performed By: #### L IPID, CMP, T7, TSH #### [facility] [address] [place] [address] Dr. Ayleen Navarro Calcium [Mass/Vol] 8.8 mg/dL Normal 8.5-10.1 [facility] Comment on above: Performed By: #### L IPID, CMP, T7, TSH #### [facility] [address] [address] [address] Ayleen Navarro Chloride [Moles/Vol] 100 mmol/L Normal 98-107 [facility] Comment on above: Performed By: #### L IPID, CMP, T7, TSH #### [facility] [address] [address] [address] Ayleen Navarro CO2 [Moles/Vol] 29.5 mmol/L Normal 21.0-32.0 [facility] Comment on above: Performed By: #### L IPID, CMP, T7, TSH #### [facility] [address] [place] [address] Dr. Ayleen Navarro Creatinine [Mass/Vol] 0.61 mg/dL Normal 0.55-1.02 [facility] Comment on above: Performed By: #### L IPID, CMP, T7, TSH #### [facility] [address] [address] [address] Ayleen Navarro EGFR-AF GUYANESE >60 Normal >=60 [facility] Comment on above: Performed By: #### L IPID, CMP, T7, TSH #### [facility] [address] [place] [address] Dr. Ayleen Navarro EGFR-NON AF GUYANESE >60 Normal >=60 [facility] Comment on above: Performed By: #### L IPID, CMP, T7, TSH #### [facility] [address] [address] [address] Ayleen Navarro Globulin (S) [Mass/Vol] 3.9 g/dL Normal [facility] Comment on above: Performed By: #### L IPID, CMP, T7, TSH #### [facility] [address] [place] [address] Dr. Ayleen Navarro Glucose [Mass/Vol] 119 mg/dL Critically high 74-106 T [facility] Comment on above: Performed By: #### L IPID, CMP, T7, TSH #### [facility] [address] [place] [address] Dr. Ayleen Navarro Potassium [Moles/Vol] 3.6 mmol/L Normal 3.5-5.1 [facility] Comment on above: Performed By: #### L IPID, CMP, T7, TSH #### [facility] [address] [address] [address] Ayleen Navarro Protein [Mass/Vol] 7.3 g/dL Normal 6.4-8.2 [facility] Comment on above: Performed By: #### L IPID, CMP, T7, TSH #### [facility] [address] [address] [address] Ayleen Navarro Sodium [Moles/Vol] 136 mmol/L Normal 136-145 [facility] [place] Comment on above: Performed By: #### L IPID, CMP, T7, TSH #### [facility] [address] [address] [address] Ayleen Navarro Urea nitrogen [Mass/Vol] 19.0 mg/dL Critically high 7.0-18.0 [facility] Comment on above: Performed By: #### L IPID, CMP, T7, TSH #### [facility] [address] [address] [address] Ayleen Navarro Urea nitrogen/Creatinine [Mass ratio] 31.1 mg/mg Normal [facility] Comment on above: Performed By: #### L IPID, CMP, T7, TSH #### [facility] [address] [address] [address] Ayleen Navarro TSHon 02-22-2022 TSH 0.964 uIU/mL Normal 0.358-3.740 [facility] Comment on above: Performed By: #### L IPID, CMP, T7, TSH #### [facility] [address] [address] [address] Ayleen Navarro GLYCOHEMOGLOBIN A1Con 2021 ADA RECOMMENDATION SEE BELOW Normal [facility] Comment on above: Result Comment: ADA RECOMMENDED LIMIT 4.0 - 6.0 ADA THERAPEUTIC TARGET < 7.0 ACTION SUGGESTED > 7.0 Performed By: #### A 1C ####[facility] [id number] [place], [place] [address]Xj. Ayleen Navarro Glucose [Mass/Vol] 140 mg/dL Normal [facility] Comment on above: Performed By: #### A 1C ####[facility] [id number] [place], [place] [address]Sk. Ayleen Navarro HbA1c (Bld) [Mass fraction] 6.5 % Critically high 4.5-6.2 [facility] Comment on above: Performed By: #### A 1C ####[facility] [id number] [place], [place] [address]Ac. Ayleen Navarro Encounters Encounter Date Encounter Type Care Provider Facility Start: 11-23-2022 Encounter for genera l adult medical examination without abnormal findings NEGIN HARDWICK [facility] Start: 11-19-2022 End: 11-20-2022 ambulatory NEGIN HARDWICK [...] Facility:[facility] Payers Date Payer Category Payer Unknown [id number] 10.17.83 [id number] 1970 Unknown [id number] 1970 Unknown [id number] 1960 Self-pay 1959 Unknown [id number] 1959 Unknown Unknown [id number] Unknown [id number] 10.17.84 [id number] Summary Purpose Family History No Family History Records Found Advance Directives No Advanced Directives Records Found Additional Source Comments INFORMATION SOURCE (unrecogn ized section and content) DATE CREATED AUTHOR 11/24/2022 [facility] FOR RECORDS PERTAINING TO PATIENTS WHO [...] BE BASED ON THE PRIMARY CLINICAL RECORDS. [employer] [facility]. provides no warranty or guarantee of the accuracy or completeness of information in this document.
--- NOTE | 2024-04-03 06:29 | XR_ITS ---
The [address] [address] Patient Name: KEVIN CUNHA MRN: [id number] date: 1970 Sex: F Assigned Patient Location: ED.MAIN Current Patient Location: ED.MAIN Accession/Order Number: [id number] Exam Date: 04/03/2024 06:46 Report Date: 04/03/2024 07:02 At the request of: BONNY STYLES Procedure: XR hip LT 2V w/ pelvis PROCEDURE: XR hip LT 2V w/ pelvis HISTORY: fall ; left hip pain radiating into left leg after falling COMPARISON: None. FINDINGS: BONES:No fracture, acute abnormality, or significant arthropathy. SOFT TISSUES:No visible soft tissue swelling. EFFUSION:None visible. OTHER: Negative. XR/XR hip LT 2V w/ pelvis IMPRESSION: 1. No acute bone abnormality. Electronically authenticated by: GRIFFIN DELCID Date: 04/03/2024 07:02
--- NOTE | 2024-04-03 06:32 | ED.FALL1 ---
HPI HPI - Fall General Chief Complaint: Fall Stated Complaint: fall Time Seen by Provider: 04/03/24 06:24 Source: patient Mode of arrival: walk-in Limitations: no limitations History of Present Illness HPI Narrative: fell 4 days ago. Casting a fishing pole and loss her balance falling onto her buttocks. Pain ever since. Points to left SI joint. Pain extends down the left leg. No past history of similar pain. no weakness or numbness or her lower extremities. 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 able to sit and work due to pain Related Data Home Medications ?Medication ?Instructions ?Recorded ?Confirmed atorvastatin 10 mg tablet 10 mg PO DAILY 02/20/23 02/20/23 chlorthalidone 25 mg tablet 25 mg PO DAILY 02/20/23 02/20/23 glipizide 10 mg tablet 10 mg PO BID 02/20/23 02/20/23 lisinopril 10 mg tablet 10 mg PO DAILY 02/20/23 02/20/23 pantoprazole 40 mg tablet,delayed 40 mg PO DAILY 02/20/23 02/20/23 release Previous Rx's ?Medication ?Instructions ?Recorded benzonatate 200 mg capsule 200 mg PO TID PRN cough #14 caps 02/20/23 doqqzdgwtzyvijf-hkggtuzrzeorxtg-LV 10 ml PO Q6H PRN cold symptoms 09/04/23 2 mg-30 mg-10 mg/5 mL oral syrup #200 mL (Bromfed DM) ondansetron 4 mg disintegrating 4 mg PO Q6H PRN nausea and 09/04/23 tablet vomiting #12 tabs Allergies Allergy/AdvReac Type Severity Reaction Status Date / Time prednisone AdvReac Vomiting Verified 04/03/24 06:19 Opioid HPI Opioid Management Most Recent Pain and Opioid Data: Last Pain Scale 10 04/03/24 06:29 Last ED Pain Assessment 04/03/24 06:29 Review of Systems ROS Status of ROS 10 or more systems reviewed and unremarkable except as noted in history and below PFSH PFSH Social History Smoking status: Heavy tobacco smoker Exam Constitutional Vital Signs, click to edit/add: Last Vital Signs Temp 97.7 F 04/03/24 06:13 Pulse 73 04/03/24 06:13 Resp 20 04/03/24 06:13 BP 132/72 04/03/24 06:13 Pulse Ox 97 04/03/24 06:13 O2 Del Method Room Air 04/03/24 06:13 Common normals: no apparent distress, oriented x3, no limitations, healthy appearing, alert and well nourished [facility] Common normals: normocephalic and head/scalp atraumatic Eye Common normals: EOMs intact bilaterally and conjunctivae normal Respiratory Common normals: normal respiratory effort, no retractions, no use of accessory muscles and clear to auscultation bilaterally Cardio Common normals: regular rate, regular rhythm, S1 normal heart sound and S2 normal heart sound GI Common normals: Normal to inspection, nondistended, normoactive bowel sounds present, soft to palpation and non-tender Back & Pelvis Common normals: thoracic and lumbar spine normal to inspection and no thoracic nor lumbar tenderness Sacroiliac joints: SI joint(s) abnormal (left SI joint tender) Extremity Common normals: normal to inspection and full ROM Neuro Common normals: oriented x3, CN's II-XII intact bilaterally, moves all extremities, no focal motor deficits and no sensory deficits noted Psych Appearance: grossly normal Course Vital Signs Vital signs: Vital Signs Temperature 97.7 F 04/03/24 06:13 Pulse Rate 73 04/03/24 06:13 Respiratory Rate 20 04/03/24 06:13 Blood Pressure 132/72 04/03/24 06:13 Pulse Oximetry 97 04/03/24 06:13 Oxygen Delivery Method Room Air 04/03/24 06:13 Temperature 97.7 F 04/03/24 06:13 Pulse Rate 73 04/03/24 06:13 Respiratory Rate 20 04/03/24 06:13 Blood Pressure 132/72 04/03/24 06:13 Pulse Oximetry 97 04/03/24 06:13 Oxygen Delivery Method Room Air 04/03/24 06:13 MDM - Fall MDM Narrative Medical decision making narrative: patient presents 4 days after a fall onto her buttocks. Has sciatica pain LLE. labs and diagnostic studies ordered as well as toradol. Care transferred at change of shift Discharge Plan Discharge Chief Complaint: Fall Clinical Impression: Left sided sciatica Patient Disposition: Still a Patient Prescriptions / Home Meds: No Action atorvastatin 10 mg tablet 10 mg PO DAILY chlorthalidone 25 mg tablet 25 mg PO DAILY glipizide 10 mg tablet 10 mg PO BID lisinopril 10 mg tablet 10 mg PO DAILY pantoprazole 40 mg tablet,delayed release (DR/EC) 40 mg PO DAILY benzonatate 200 mg capsule 200 mg PO TID PRN (Reason: cough) Qty: 14 0RF umhzpqaxgzmaook-wtqhutqvl-CD [Bromfed DM] 2-30-10 mg/5 mL syrup 10 ml PO Q6H PRN (Reason: cold symptoms) Qty: 200 0RF ondansetron 4 mg tablet,disintegrating 4 mg PO Q6H PRN (Reason: nausea and vomiting) Qty: 12 0RF Print Language: Ukrainian Referrals: NEGIN HARDWICK [Primary Care Provider] - 1 week
[2024-04-03 06:52] LABS: Basophils Absolute Auto 0.1 10^3/uL (0.0-0.1); Basophils Percent Auto 0.7 % (0.2-2.0); Eosinophils Absolute Auto 0.2 10^3/uL (0.0-0.7); Eosinophils Percent Auto 2.2 % (0.9-7.0); Hematocrit 44.6 % (36.0-48.0); Hemoglobin 15.2 g/dL (12.0-16.0); Immature Granulocytes Abs Auto 0.03 10^3/uL (0.00-0.03); Immature Granulocytes Pct Auto 0.3 % (0.0-0.5); Lymphocytes Absolute Auto 3.4 10^3/uL (1.2-3.8); Lymphocytes Percent Auto 31.3 % (20.5-60.0); Mean Corpuscular HGB Conc 34.1 g/dL (29.9-35.2); Mean Corpuscular Hemoglobin 29.3 pg (26.7-34.0); Mean Corpuscular Volume 86.1 fL (81.0-99.0); Mean Platelet Volume 10.9 fL (9.5-13.5); Monocytes Absolute Auto 0.7 10^3/uL (0.3-0.8); Monocytes Percent Auto 6.7 % (1.7-12.0); Neutrophils Absolute Auto 6.5 10^3/uL (1.4-6.5); Neutrophils Percent Auto 58.8 % (43.0-75.0); Platelet Count 229 10^3/uL (150-450); Red Blood Count 5.18 10^6/uL (4.20-5.40); Red Cell Distribution Width 13.2 % (11.0-15.0)
[2024-04-03] MEDS: KETOROLAC TROMETHAMINE 30 MG/ML VIAL IVP (06:56)
[2024-04-03 07:00] VITALS: PULSE 68; O2SAT 97
[2024-04-03 07:23] LABS: Anion Gap 12.8; BUN Creatinine Ratio 19.3; C Reactive Protein <0.50 mg/dL (<=0.50); Calcium 9.1 mg/dL (8.5-10.1); Carbon Dioxide 26.5 mmol/L (21.0-32.0); Chloride 101 mmol/L (98-107); Estimated GFR (African America >60 (>=60); Estimated GFR (Non-African Ame >60 (>=60); Glucose 78 mg/dL (74-106); Potassium 3.3 mmol/L (3.5-5.1); Sodium 137 mmol/L (136-145)
[2024-04-03 07:32] VITALS: BP 106/47; PULSE 63; O2SAT 97
--- NOTE | 2024-04-03 07:47 | ED.FALL1 ---
HPI HPI - Fall General Chief Complaint: Fall Stated Complaint: fall Time Seen by Provider: 04/03/24 06:24 Source: patient Mode of arrival: walk-in Limitations: no limitations History of Present Illness HPI Narrative: 53-year-old female presented to the emergency department and was initially seen by Dr. Guido and signed out to me at change of shift after discussing the case with him thoroughly. Please see his full history and physical exam. Related Data Home Medications ?Medication ?Instructions ?Recorded ?Confirmed atorvastatin 10 mg tablet 10 mg PO DAILY 02/20/23 02/20/23 chlorthalidone 25 mg tablet 25 mg PO DAILY 02/20/23 02/20/23 glipizide 10 mg tablet 10 mg PO BID 02/20/23 02/20/23 lisinopril 10 mg tablet 10 mg PO DAILY 02/20/23 02/20/23 pantoprazole 40 mg tablet,delayed 40 mg PO DAILY 02/20/23 02/20/23 release Previous Rx's ?Medication ?Instructions ?Recorded benzonatate 200 mg capsule 200 mg PO TID PRN cough #14 caps 02/20/23 lwzkvsiyqcmoaxr-gtllqtjmrfvxpjs-IV 10 ml PO Q6H PRN cold symptoms 09/04/23 2 mg-30 mg-10 mg/5 mL oral syrup #200 mL (Bromfed DM) ondansetron 4 mg disintegrating 4 mg PO Q6H PRN nausea and 09/04/23 tablet vomiting #12 tabs etodolac 400 mg tablet 400 mg PO Q8H PRN pain #20 tabs 04/03/24 Allergies Allergy/AdvReac Type Severity Reaction Status Date / Time prednisone AdvReac Vomiting Verified 04/03/24 06:19 Opioid HPI Opioid Management Most Recent Pain and Opioid Data: Last Pain Scale 10 04/03/24 06:29 Last ED Pain Assessment 04/03/24 06:29 PFSH PFSH Social History Smoking status: Heavy tobacco smoker Exam Constitutional Vital Signs, click to edit/add: Last Vital Signs Temp 97.7 F 04/03/24 06:13 Pulse 63 04/03/24 07:32 Resp 18 04/03/24 07:32 BP 106/47 L 04/03/24 07:32 Pulse Ox 97 04/03/24 07:32 O2 Del Method Room Air 04/03/24 06:13 Course Vital Signs Vital signs: Vital Signs Temperature 97.7 F 04/03/24 06:13 Pulse Rate 73 04/03/24 06:13 Respiratory Rate 20 04/03/24 06:13 Blood Pressure 132/72 04/03/24 06:13 Pulse Oximetry 97 04/03/24 06:13 Oxygen Delivery Method Room Air 04/03/24 06:13 Temperature 97.7 F 04/03/24 06:13 Pulse Rate 63 04/03/24 07:32 Respiratory Rate 18 04/03/24 07:32 Blood Pressure 106/47 L 04/03/24 07:32 Pulse Oximetry 97 04/03/24 07:32 Oxygen Delivery Method Room Air 04/03/24 06:13 MDM - Fall MDM Narrative Medical decision making narrative: Blood work is normal and x-rays are negative. She is feeling improved with IM Toradol given here and she is discharged home with a prescription for Lodine. She is requesting medication that will not make her drowsy at work. Treatment diagnosis and follow-up were discussed with the patient. Differential Diagnosis Differential diagnosis: Likely other (Contusion, fracture) Lab Data Attestation: I reviewed the patient's lab results. Labs: Lab Results 04/03/24 Range/Units 06:30 WBC 11.0 (4.0-11.0) 10^3/uL RBC 5.18 (4.20-5.40) 10^6/uL Hgb 15.2 (12.0-16.0) g/dL Hct 44.6 (36.0-48.0) % MCV 86.1 (81.0-99.0) fL MCH 29.3 (26.7-34.0) pg MCHC 34.1 (29.9-35.2) g/dL RDW 13.2 (11.0-15.0) % Plt Count 229 (150-450) 10^3/uL MPV 10.9 (9.5-13.5) fL Neut % (Auto) 58.8 (43.0-75.0) % Lymph % (Auto) 31.3 (20.5-60.0) % [place] % (Auto) 6.7 (1.7-12.0) % Eos % (Auto) 2.2 (0.9-7.0) % Baso % (Auto) 0.7 (0.2-2.0) % Neut # (Auto) 6.5 (1.4-6.5) 10^3/uL Lymph # (Auto) 3.4 (1.2-3.8) 10^3/uL [place] # (Auto) 0.7 (0.3-0.8) 10^3/uL Eos # (Auto) 0.2 (0.0-0.7) 10^3/uL Baso # (Auto) 0.1 (0.0-0.1) 10^3/uL Abs Immat Gran (auto) 0.03 (0.00-0.03) 10^3/uL Imm/Tot Granulo (auto) 0.3 (0.0-0.5) % Sodium 137 (136-145) mmol/L Potassium 3.3 L (3.5-5.1) mmol/L Chloride 101 (98-107) mmol/L Carbon Dioxide 26.5 (21.0-32.0) mmol/L Anion Gap 12.8 BUN 11.0 (7.0-18.0) mg/dL Creatinine 0.57 (0.55-1.02) mg/dL Est GFR ( Amer) >60 (>=60) Est GFR (Non-Af Amer) >60 (>=60) BUN/Creatinine Ratio 19.3 Glucose 78 (74-106) mg/dL Calcium 9.1 (8.5-10.1) mg/dL C-Reactive Protein <0.50 (<=0.50) mg/dL Imaging Data Hip x-ray: Radiologist's impression: ITS Impressions Hip/Pelvis X-Ray 04/03/24 06:29 IMPRESSION: 1. No acute bone abnormality. Electronically authenticated by: GRIFFIN DELCID Date: 04/03/2024 07:02 Discharge Plan Discharge Stand Alone Forms: Portal Instructions Chief Complaint: Fall Clinical Impression: Left sided sciatica, Contusion of hip Patient Disposition: Home, Self-Care Time of Disposition Decision: 07:46 Condition: Good Mode of Transportation: Private Vehicle Prescriptions / Home Meds: New etodolac 400 mg tablet 400 mg PO Q8H PRN (Reason: pain) Qty: 20 0RF No Action atorvastatin 10 mg tablet 10 mg PO DAILY chlorthalidone 25 mg tablet 25 mg PO DAILY glipizide 10 mg tablet 10 mg PO BID lisinopril 10 mg tablet 10 mg PO DAILY pantoprazole 40 mg tablet,delayed release (DR/EC) 40 mg PO DAILY benzonatate 200 mg capsule 200 mg PO TID PRN (Reason: cough) Qty: 14 0RF mtobuyxdqaqulmv-nhmwerpwv-RY [Bromfed DM] 2-30-10 mg/5 mL syrup 10 ml PO Q6H PRN (Reason: cold symptoms) Qty: 200 0RF ondansetron 4 mg tablet,disintegrating 4 mg PO Q6H PRN (Reason: nausea and vomiting) Qty: 12 0RF Print Language: Tamazight Referrals: NEGIN HARDWICK [Primary Care Provider] - 1 week
== END 2024-04-03 08:01 | disposition home or self-care (01) ==
PROVIDERS: Internal Medicine; Emergency Provider Emergency Medicine; PCP Nurse Practitioner Family
DX: M54.32 Sciatica, left side (principal); S70.02XA Contusion of left hip, initial encounter; W19.XXXA Unspecified fall, initial encounter; F17.210 Nicotine dependence, cigarettes, uncomplicated
CPT/HCPCS: 36415; 73502; 80048; 85025; 86140; 96374; 99284; J1885

== ENCOUNTER 2024-04-27 17:56 | Emergency (ER) | payer BC, SELFPAY ==
[2024-04-27 18:03] VITALS: BP 166/99; PULSE 72; TEMP 36.7; O2SAT 97; BMI 42.2
--- OUTSIDE RECORDS SUMMARY | 2024-04-27 18:07 | XMS_ITS | CCD ---
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; Translations: [OTH NNP CURRENT DRUG THERAPY] Onset: 06-14-2022 Episodic Other non-traumatic joint disorders (4 sources) Pain in left shoulder; Translations: [PAIN IN LEFT SHOULDER] Onset: 06-13-2022 Episodic Results Test Name Value Interpretation Reference Range Facility GLYCOHEMOGLOBIN A1Con 2022 ADA RECOMMENDATION SEE BELOW Normal [facility] Comment on above: Result Comment: ADA RECOMMENDED LIMIT 4.0 - 6.0 ADA THERAPEUTIC TARGET < 7.0 ACTION SUGGESTED > 7.0 Performed By: #### D ATA1C #### [facility] [address] [address] [address] Ayleen Navarro Glucose [Mass/Vol] 192 mg/dL Normal [facility] Comment on above: Performed By: #### D ATA1C #### [facility] [address] [address] [address] Ayleen Navarro HbA1c (Bld) [Mass fraction] 8.3 % Critically high 4.5-6.2 [facility] Comment on above: Performed By: #### D ATA1C #### [facility] [address] [address] [address] Ayleen Navarro GLYCOHEMOGLOBIN A1Con 2021 ADA RECOMMENDATION SEE BELOW Normal [facility] Comment on above: Result Comment: ADA RECOMMENDED LIMIT 4.0 - 6.0 ADA THERAPEUTIC TARGET < 7.0 ACTION SUGGESTED > 7.0 Performed By: #### D ATA1C ####[facility] [address] [address]Dr. Ayleen Navarro Glucose [Mass/Vol] 180 mg/dL Normal [facility] Comment on above: Performed By: #### D ATA1C ####[facility] [address] [address]Dr. Ayleen Navarro HbA1c (Bld) [Mass fraction] 7.9 % Critically high 4.5-6.2 [facility] Comment on above: Performed By: #### D ATA1C ####[facility] [address] [address]Dr. Ayleen Navarro CBC AUTO DIFFon 06-13-2022 BASO # 0.1 103/ul Normal 0.0-0.1 [facility] Comment on above: Performed By: #### C BC #### [facility] [address] [address] [address] Ayleen Navarro Basophils/100 WBC (Bld) 0.7 % Normal 0.2-2.0 [facility] Comment on above: Performed By: #### C BC #### [facility] [address] [address] [address] Ayleen Navarro EO # 0.2 103/ul Normal 0.0-0.7 [facility] Comment on above: Performed By: #### C BC #### [facility] [address] [address] [address] Ayleen Navarro Eosinophils/100 WBC (Bld) 2.1 % Normal 0.9-7.0 [facility] Comment on above: Performed By: #### C BC #### [facility] [address] [place] [address] Dr. Ayleen Navarro Erythrocyte distribution width (RBC) [Ratio] 12.6 % Normal 11.0-15.0 [facility] Comment on above: Performed By: #### C BC #### [facility] [address] [address] [address] Ayleen Navarro Hematocrit (Bld) [Volume fraction] 42.8 % Normal 36.0-48.0 [facility] Comment on above: Performed By: #### C BC #### [facility] [address] [address] [address] Ayleen Navarro Hemoglobin (Bld) [Mass/Vol] 14.3 g/dL Normal 12.0-16.0 [facility] Comment on above: Performed By: #### C BC #### [facility] [address] [address] [address] Ayleen Navarro IG # 0.05 10e3/ul Critically high 0.00-0.03 [facility] Comment on above: Performed By: #### C BC #### [facility] [address] [address] [address] Ayleen Navarro IG % 0.5 % Normal 0.0-0.5 [facility] Comment on above: Performed By: #### C BC #### [facility] [address] [place] [address] Dr. Ayleen Navarro LYMPH # 3.4 103/ul Normal 1.2-3.8 [facility] Comment on above: Performed By: #### C BC #### [facility] [address] [place] [address] Dr. Ayleen Navarro Lymphocytes/100 WBC (Bld) 31.5 % Normal 20.5-60.0 [facility] Comment on above: Performed By: #### C BC #### [facility] [address] [place] [address] Dr. Ayleen Navarro MANUAL DIFF REQ NO Normal [facility] Comment on above: Performed By: #### C BC #### [facility] [address] [place] [address] Dr. Ayleen Navarro MCH (RBC) [Entitic mass] 29.3 pg Normal 26.7-34.0 [facility] Comment on above: Performed By: #### C BC #### [facility] [address] [place] [address] Dr. Ayleen Navarro MCHC (RBC) [Mass/Vol] 33.4 g/dL Normal 29.9-35.2 [facility] Comment on above: Performed By: #### C BC #### [facility] [address] [place] [address] Dr. Ayleen Navarro MCV (RBC) [Entitic vol] 87.7 fL Normal 81.0-99.0 [facility] Comment on above: Performed By: #### C BC #### [facility] [address] [place] [address] Dr. Ayleen Navarro MONO # 0.6 103/ul Normal 0.3-0.8 [facility] Comment on above: Performed By: #### C BC #### [facility] [address] [place] [address] Dr. Ayleen Navarro Monocytes/100 WBC (Bld) 5.5 % Normal 1.7-12.0 [facility] Comment on above: Performed By: #### C BC #### [facility] [address] [place] [address] Dr. Ayleen Navarro NEUT # 6.4 103/ul Normal 1.4-6.5 [facility] Comment on above: Performed By: #### C BC #### [facility] [address] [place] [address] Dr. Ayleen Navarro Neutrophils/100 WBC (Bld) 59.7 % Normal 43.0-75.0 [facility] Comment on above: Performed By: #### C BC #### [facility] [address] [place] [address] Dr. Ayleen Navarro Platelet mean volume (Bld) [Entitic vol] 10.9 fL Normal 9.5-13.5 [facility] Comment on above: Performed By: #### C BC #### [facility] [address] [place] [address] Dr. Ayleen Navarro PLT 229 103/ul Normal 150-450 [facility] Comment on above: Performed By: #### C BC #### [facility] [address] [place] [address] Dr. Ayleen Navarro RBC 4.88 106/ul Normal 4.20-5.40 [facility] Comment on above: Performed By: #### C BC #### [facility] [address] [place] [address] Dr. Ayleen Navarro WBC 10.7 103/ul Normal 4.0-11.0 [facility] Comment on above: Performed By: #### C BC #### [facility] [address] [place] [address] Dr. Ayleen Navarro PROF 14(COMP METB)on 022 Albumin [Mass/Vol] 3.2 g/dL Critically low 3.4-5.0 [facility] Comment on above: Performed By: #### H BENI, CMP #### [facility] [address] [place] [address] Dr. Ayleen Navarro Albumin/Globulin [Mass ratio] 0.8 {ratio} Normal [facility] Comment on above: Performed By: #### H BENI, CMP #### [facility] [address] [address] [address] Ayleen Navarro ALP [Catalytic activity/Vol] 76 U/L Normal 46-116 [facility] Comment on above: Performed By: #### H STROPN, CMP #### [facility] [address] [address] [address] Ayleen Navarro ALT [Catalytic activity/Vol] 24 U/L Normal 14-59 [facility] Comment on above: Performed By: #### H STROPN, CMP #### [facility] [address] [address] [address] Ayleen Navarro Anion gap [Moles/Vol] 8.5 mmol/L Normal [facility] Comment on above: Performed By: #### H STROPN, CMP #### [facility] [address] [address] [address] Ayleen Navarro AST [Catalytic activity/Vol] 4 U/L Critically low 15-37 [facility] Comment on above: Performed By: #### H STROPN, CMP #### [facility] [address] [address] [address] Ayleen Navarro Bilirubin [Mass/Vol] 0.2 mg/dL Normal 0.2-1.0 [facility] Comment on above: Performed By: #### H STROPN, CMP #### [facility] [address] [address] [address] Ayleen Navarro Calcium [Mass/Vol] 8.8 mg/dL Normal 8.5-10.1 [facility] Comment on above: Performed By: #### H STROPN, CMP #### [facility] [address] [address] [address] Ayleen Navarro Chloride [Moles/Vol] 99 mmol/L Normal 98-107 [facility] Comment on above: Performed By: #### H STROPN, CMP #### [facility] [address] [address] [address] Ayleen Navarro CO2 [Moles/Vol] 29.9 mmol/L Normal 21.0-32.0 [facility] Comment on above: Performed By: #### H STROPN, CMP #### [facility] [address] [address] [address] Ayleen Navarro Creatinine [Mass/Vol] 0.88 mg/dL Normal 0.55-1.02 [facility] Comment on above: Performed By: #### H STROPN, CMP #### [facility] [address] [address] [address] Ayleen Navarro EGFR-AF BOTSWANAN >60 Normal >=60 [facility] Comment on above: Performed By: #### H STROPN, CMP #### [facility] [address] [address] [address] Ayleen Navarro EGFR-NON AF BOTSWANAN >60 Normal >=60 [facility] Comment on above: Performed By: #### H STROPN, CMP #### [facility] [address] [address] [address] Ayleen Navarro Globulin (S) [Mass/Vol] 3.9 g/dL Normal [facility] Comment on above: Performed By: #### H STROPN, CMP #### [facility] [address] [address] [address] Ayleen Navarro Glucose [Mass/Vol] 245 mg/dL Critically high 74-106 [facility] Comment on above: Performed By: #### H STROPN, CMP #### [facility] [address] [address] [address] Ayleen Navarro Potassium [Moles/Vol] 3.4 mmol/L Critically low 3.5-5.1 [facility] Comment on above: Performed By: #### H STROPN, CMP #### [facility] [address] [address] [address] Ayleen Navarro Protein [Mass/Vol] 7.1 g/dL Normal 6.4-8.2 [facility] Comment on above: Performed By: #### H STROPN, CMP #### [facility] [address] [address] [address] Ayleen Navarro Sodium [Moles/Vol] 134 mmol/L Critically low 136-145 [facility] Comment on above: Performed By: #### H STROPN, CMP #### [facility] [address] [place], [place] [address] Dr. Ayleen Navarro Urea nitrogen [Mass/Vol] 18.0 mg/dL Normal 7.0-18.0 [facility] Comment on above: Performed By: #### H STROPN, CMP #### [facility] [address] [place], [place] [address] Dr. Ayleen Navarro Urea nitrogen/Creatinine [Mass ratio] 20.5 mg/mg Normal [facility] Comment on above: Performed By: #### H STROPN, CMP #### [facility] [address] [place], [place] [address] Dr. Ayleen Navarro TROPONIN, HIGH SENSITIVITYon 06-13-2022 HSTROP 8.6 pg/mL Normal 4.0-51.3 [facility] Comment on above: Result Comment: CUT- OFF POINTS HAVE BEEN ESTABLISHED BASED ON THE FOURTH UNIVERSAL DEFINITIONS OF MYOCARDIAL INFARCTION. THE UPPER REFERENCE LIMIT (URL) OF TROPONIN, DEFINED THE 99TH PERCENTILE OF cTnI DISTRIBUTION IN A REFERENCE POPULATION, HAS BEEN CONFIRMED THE DECISION THRESHOLD FOR [place] DIAGNOSIS. Performed By: #### H STROPN ####[facility] [address] [place], [place] [address]HkDr. Ayleen Navarro HSTROP <4.0 Normal 4.0-51.3 [facility] Comment on above: Result Comment: CUT- OFF POINTS HAVE BEEN ESTABLISHED BASED ON THE FOURTH UNIVERSAL DEFINITIONS OF MYOCARDIAL INFARCTION. THE UPPER REFERENCE LIMIT (URL) OF TROPONIN, DEFINED THE 99TH PERCENTILE OF cTnI DISTRIBUTION IN A REFERENCE POPULATION, HAS BEEN CONFIRMED THE DECISION THRESHOLD FOR [place] DIAGNOSIS. Performed By: #### H STROPN, CMP #### [facility] [address] [place], [place] [address] Dr. Ayleen Navarro XR CHEST 1 Von [...] Radha GONZALEZ Date: 2022-06-13 04:44 Normal [facility] INSULINon 02-23-2022 Insulin 22.9 uIU/mL Normal 2.6-24.9 [facility] Comment on above: Performed By: #### I NSULIN #### [facility] [address] [address] [address] Ayleen Navarro CBC AUTO DIFFon 02-22-2022 BASO # 0.1 103/ul Normal 0.0-0.1 [facility] Comment on above: Performed By: #### C BC ####[facility] [address] [address]Dr. Ayleen Navarro Basophils/100 WBC (Bld) 0.9 % Normal 0.2-2.0 [facility] Comment on above: Performed By: #### C BC ####[facility] [address] [address]Dr. Ayleen Navarro EO # 0.2 103/ul Normal 0.0-0.7 [facility] Comment on above: Performed By: #### C BC ####[facility] [address] [address]Dr. Ayleen Navarro Eosinophils/100 WBC (Bld) 2.6 % Normal 0.9-7.0 [facility] Comment on above: Performed By: #### C BC ####[facility] [address] [address]Dr. Ayleen Navarro Erythrocyte distribution width (RBC) [Ratio] 13.3 % Normal 11.0-15.0 [facility] Comment on above: Performed By: #### C BC ####[facility] [address] [address]Dr. Ayleen Navarro Hematocrit (Bld) [Volume fraction] 42.8 % Normal 36.0-48.0 [facility] Comment on above: Performed By: #### C BC ####[facility] [address] [address]Dr. Ayleen Navarro Hemoglobin (Bld) [Mass/Vol] 14.3 g/dL Normal 12.0-16.0 [facility] Comment on above: Performed By: #### C BC ####[facility] [address] [address]DrMiky Navarro IG # 0.05 10e3/ul Critically high 0.00-0.03 [facility] Comment on above: Performed By: #### C BC ####[facility] [address] [address]DrMiky Navarro IG % 0.5 % Normal 0.0-0.5 [facility] Comment on above: Performed By: #### C BC ####[facility] [address] [place], [place] [address]DrMiky Navarro LYMPH # 3.0 103/ul Normal 1.2-3.8 [facility] Comment on above: Performed By: #### C BC ####[facility] [address] [place], [place] [address]DrMiky Navarro Lymphocytes/100 WBC (Bld) 32.4 % Normal 20.5-60.0 [facility] Comment on above: Performed By: #### C BC ####[facility] [address] [place], [place] [address]DrMiky Navarro MANUAL DIFF REQ NO Normal [facility] Comment on above: Performed By: #### C BC ####[facility] [address] [place], [place] [address]DrMiky Navarro MCH (RBC) [Entitic mass] 29.5 pg Normal 26.7-34.0 [facility] Comment on above: Performed By: #### C BC ####[facility] [address] [place], [place] [address]DrMiky Navarro MCHC (RBC) [Mass/Vol] 33.4 g/dL Normal 29.9-35.2 [facility] Comment on above: Performed By: #### C BC ####[facility] [address] [place], [place] [address]DrMiky Navarro MCV (RBC) [Entitic vol] 88.2 fL Normal 81.0-99.0 [facility] Comment on above: Performed By: #### C BC ####[facility] [address] [place], [place] [address]Dr. Ayleen Navarro MONO # 0.6 103/ul Normal 0.3-0.8 [facility] Comment on above: Performed By: #### C BC ####[facility] [address] [place], [place] [address]Dr. Ayleen Ramon Monocytes/100 WBC (Bld) 6.7 % Normal 1.7-12.0 [facility] Comment on above: Performed By: #### C BC ####[facility] [address] [place], [place] [address]Dr. Ayleen Navarro NEUT # 5.3 103/ul Normal 1.4-6.5 [facility] Comment on above: Performed By: #### C BC ####[facility] [address] [place], [place] [address]Dr. Ayleen Ramon Neutrophils/100 WBC (Bld) 56.9 % Normal 43.0-75.0 [facility] Comment on above: Performed By: #### C BC ####[facility] [address] [place], [place] [address]Dr. Ayleen Navarro Platelet mean volume (Bld) [Entitic vol] 11.0 fL Normal 9.5-13.5 [facility] Comment on above: Performed By: #### C BC ####[facility] [address] [place], [place] [address]Dr. Ayleen Ramon PLT 239 103/ul Normal 150-450 [facility] Comment on above: Performed By: #### C BC ####[facility] [address] [place], [place] [address]Dr. Ayleen Ramon RBC 4.85 106/ul Normal 4.20-5.40 [facility] Comment on above: Performed By: #### C BC ####[facility] [address] [place], [place] [address]Dr. Ayleen Navarro WBC 9.3 103/ul Normal 4.0-11.0 [facility] Comment on above: Performed By: #### C BC ####[facility] [address] [address]Dr. Ayleen Navarro FREE THYROXINE INDEX T7on FTI 3.36 Normal 1.30-4.50 [facility] Comment on above: Performed By: #### L IPID, CMP, T7, TSH #### [facility] [address] [address] [address] Ayleen Navarro T3U 32.0 % Normal 30.0-39.0 [facility] Comment on above: Performed By: #### L IPID, CMP, T7, TSH #### [facility] [address] [address] [address] Ayleen Navarro T4 [Mass/Vol] 10.50 ug/dL Normal 4.80-13.90 [facility] Comment on above: Performed By: #### L IPID, CMP, T7, TSH #### [facility] [address] [address] [address] Ayleen Navarro IRONon 02-22-2022 Iron [Mass/Vol] 117.0 ug/dL Normal 50.0-170.0 [facility] Comment on above: Performed By: #### I FEDERICO ####[facility] [address] [address]Dr. Ayleen Navarro LIPID PROFILEon 02-22-2022 CHOL-HDL RATIO NORM SEE BELOW Normal [facility] Comment on above: Result Comment: 3.3 - 4.4 LOW RISK 4.4 - 7.1 AVERAGE RISK 7.1 - 11.0 MODERATE RISK >11.0 HIGH RISK Performed By: #### L IPID, CMP, T7, TSH #### [facility] [address] [address] [address] Ayleen Navarro Cholesterol [Mass/Vol] 161 mg/dL Normal <=200 [facility] Comment on above: Performed By: #### L IPID, CMP, T7, TSH #### [facility] [address] [address] [address] Ayleen Navarro Cholesterol in HDL [Mass/Vol] 42 mg/dL Normal 40-60 [facility] Comment on above: Performed By: #### L IPID, CMP, T7, TSH #### [facility] [address] [address] [address] Ayleen Navarro Cholesterol in LDL [Mass/Vol] 98.4 mg/dL Normal [facility] Comment on above: Performed By: #### L IPID, CMP, T7, TSH #### [facility] [address] [address] [address] Ayleen Navarro Cholesterol.total/Cho lesterol in HDL [Mass ratio] 3.8 {ratio} Normal [facility] Comment on above: Performed By: #### L IPID, CMP, T7, TSH #### [facility] [address] [address] [address] Ayleen Navarro HDL NORMAL > or = 60 mg/dl - LO W CARDIOVASCULAR RISK <40 mg/dl - HIGH CARDIOVASCULAR RISK Normal [facility] Comment on above: Performed By: #### L IPID, CMP, T7, TSH #### [facility] [address] [address] [address] Ayleen Navarro LDL CALC NORMAL SEE BELOW Normal [facility] Comment on above: Result Comment: <100 mg/dl OPTIMAL 100 - 129 mg/dl NEAR OR ABOVE OPTIMAL 130 - 159 mg/dl BORDERLINE HIGH 160 - 189 mg/dl HIGH >190 mg/dl VERY HIGH Performed By: #### L IPID, CMP, T7, TSH #### [facility] [address] [address] [address] Ayleen Navarro Triglyceride [Mass/Vol] 103 mg/dL Normal <=150 [facility] Comment on above: Performed By: #### L IPID, CMP, T7, TSH #### [facility] [address] [address] [address] Ayleen Navarro VLDL CALC 20.6 mg/dL Normal [facility] Comment on above: Performed By: #### L IPID, CMP, T7, TSH #### [facility] [address] [address] [address] Ayleen Navarro PROF 14(COMP METB)on 022 Albumin [Mass/Vol] 3.4 g/dL Normal 3.4-5.0 [facility] Comment on above: Performed By: #### L IPID, CMP, T7, TSH #### [facility] [address] [address] [address] Ayleen Navarro Albumin/Globulin [Mass ratio] 0.9 {ratio} Normal [facility] Comment on above: Performed By: #### L IPID, CMP, T7, TSH #### [facility] [address] [place] [address] Dr. Ayleen Navarro ALP [Catalytic activity/Vol] 71 U/L Normal 46-116 [facility] Comment on above: Performed By: #### L IPID, CMP, T7, TSH #### [facility] [address] [place] [address] Dr. Ayleen Navarro ALT [Catalytic activity/Vol] 25 U/L Normal 14-59 [facility] Comment on above: Performed By: #### L IPID, CMP, T7, TSH #### [facility] [address] [address] [address] Ayleen Navarro Anion gap [Moles/Vol] 10.1 mmol/L Normal [facility] Comment on above: Performed By: #### L IPID, CMP, T7, TSH #### [facility] [address] [place] [address] Dr. Ayleen Navarro AST [Catalytic activity/Vol] 11 U/L Critically low 15-37 [facility] Comment on above: Performed By: #### L IPID, CMP, T7, TSH #### [facility] [address] [place] [address] Dr. Ayleen Navarro Bilirubin [Mass/Vol] 0.5 mg/dL Normal 0.2-1.0 [facility] Comment on above: Performed By: #### L IPID, CMP, T7, TSH #### [facility] [address] [place] [address] Dr. Ayleen Navarro Calcium [Mass/Vol] 8.8 mg/dL Normal 8.5-10.1 [facility] Comment on above: Performed By: #### L IPID, CMP, T7, TSH #### [facility] [address] [address] [address] Ayleen Navarro Chloride [Moles/Vol] 100 mmol/L Normal 98-107 [facility] Comment on above: Performed By: #### L IPID, CMP, T7, TSH #### [facility] [address] [address] [address] Ayleen Navarro CO2 [Moles/Vol] 29.5 mmol/L Normal 21.0-32.0 [facility] Comment on above: Performed By: #### L IPID, CMP, T7, TSH #### [facility] [address] [place] [address] Dr. Ayleen Navarro Creatinine [Mass/Vol] 0.61 mg/dL Normal 0.55-1.02 [facility] Comment on above: Performed By: #### L IPID, CMP, T7, TSH #### [facility] [address] [address] [address] Ayleen Navarro EGFR-AF BOTSWANAN >60 Normal >=60 [facility] Comment on above: Performed By: #### L IPID, CMP, T7, TSH #### [facility] [address] [place] [address] Dr. Ayleen Navarro EGFR-NON AF BOTSWANAN >60 Normal >=60 [facility] Comment on above: Performed By: #### L IPID, CMP, T7, TSH #### [facility] [address] [address] [address] Ayleen Navarro Globulin (S) [Mass/Vol] 3.9 g/dL Normal [facility] Comment on above: Performed By: #### L IPID, CMP, T7, TSH #### [facility] [address] [place] [address] Dr. Ayleen Navarro Glucose [Mass/Vol] 119 mg/dL Critically high 74-106 [facility] Comment on above: Performed By: #### L IPID, CMP, T7, TSH #### [facility] [address] [place] [address] Dr. Ayleen Navarro Potassium [Moles/Vol] 3.6 mmol/L Normal 3.5-5.1 [facility] Comment on above: Performed By: #### L IPID, CMP, T7, TSH #### [facility] [address] [address] [address] Ayleen Navarro Protein [Mass/Vol] 7.3 g/dL Normal 6.4-8.2 [facility] Comment on above: Performed By: #### L IPID, CMP, T7, TSH #### [facility] [address] [address] [address] Ayleen Navarro Sodium [Moles/Vol] 136 mmol/L Normal 136-145 [facility] Comment on above: Performed By: #### L IPID, CMP, T7, TSH #### [facility] [address] [address] [address] Ayleen Navarro Urea nitrogen [Mass/Vol] 19.0 mg/dL Critically high 7.0-18.0 [facility] Comment on above: Performed By: #### L IPID, CMP, T7, TSH #### [facility] [address] [address] [address] Ayleen Navarro Urea nitrogen/Creatinine [Mass ratio] 31.1 mg/mg Normal [facility] Comment on above: Performed By: #### L IPID, CMP, T7, TSH #### [facility] [address] [address] [address] Ayleen Navarro TSHon 02-22-2022 TSH 0.964 uIU/mL Normal 0.358-3.740 [facility] Comment on above: Performed By: #### L IPID, CMP, T7, TSH #### [facility] [address] [address] [address] Ayleen Navarro GLYCOHEMOGLOBIN A1Con 2021 ADA RECOMMENDATION SEE BELOW Normal [facility] Comment on above: Result Comment: ADA RECOMMENDED LIMIT 4.0 - 6.0 ADA THERAPEUTIC TARGET < 7.0 ACTION SUGGESTED > 7.0 Performed By: #### A 1C ####[facility] [id number] [place], [place] [address]Ak. Ayleen Navarro Glucose [Mass/Vol] 140 mg/dL Normal [facility] Comment on above: Performed By: #### A 1C ####[facility] [id number] [place], [place] [address]Be. Ayleen Navarro HbA1c (Bld) [Mass fraction] 6.5 % Critically high 4.5-6.2 [facility] Comment on above: Performed By: #### A 1C ####[facility] [id number] [place], [place] [address]Ug. Ayleen Navarro Encounters Encounter Date Encounter Type Care Provider Facility Start: 11-23-2022 Encounter for genera l adult medical examination without abnormal findings NEGIN HARDWICK [facility] Start: 11-19-2022 End: 11-20-2022 ambulatory NEGIN [...] Facility:[facility] Payers Date Payer Category Payer Unknown [id number] 10.17.83 [id number] 1970 Unknown [id number] 1970 Unknown [id number] 1959 Self-pay 1960 Unknown [id number] 1960 Unknown Unknown [id number] Unknown [id number] 10.17.84 [id number] Summary Purpose Family History No Family History [...] BE BASED ON THE PRIMARY CLINICAL RECORDS. [facility]. provides no warranty or guarantee of the accuracy or completeness of information in this document.
--- NOTE | 2024-04-27 18:50 | CT_ITS ---
The [address] [address] Patient Name: KEVIN CUNHA MRN: [id number] date: 1970 Sex: F Assigned Patient Location: ER Current Patient Location: ER Accession/Order Number: [id number] Exam Date: 04/27/2024 19:23 Report Date: 04/27/2024 21:29 At the request of: ANSHUL BEAL Procedure: CT pelvis wo con EXAM: CT pelvis wo con HISTORY: pain injury COMPARISON: None. TECHNIQUE: Unenhanced helical CT was performed through the pelvis. Coronal and sagittal reconstructions were performed. FINDINGS: There is no acute fracture or dislocation. There are multiple diverticula in the visualized descending and sigmoid colon with no acute diverticulitis. There is a partially visualized small fat-containing umbilical hernia. CT/CT pelvis wo con IMPRESSION: 1. No acute osseous abnormality. 2. Colonic diverticulosis and small fat-containing umbilical hernia. Electronically authenticated by: GRIFFIN ANTONIO Date: 04/27/2024 21:29
--- NOTE | 2024-04-27 18:50 | CT_ITS ---
The [address] [address] Patient Name: KEVIN CUNHA MRN: [id number] date: 1970 Sex: F Assigned Patient Location: ER Current Patient Location: ER Accession/Order Number: [id number] Exam Date: 04/27/2024 19:23 Report Date: 04/27/2024 21:13 At the request of: ANSHUL BELA Procedure: CT lumbar spine wo con EXAMINATION: CT lumbar spine wo con, 04/27/2024 4:23 PM PDT HISTORY: pain, injury COMPARISON: None. TECHNIQUE: CT of the lumbar spine was performed without IV contrast. CT dose reduction technique was used, including Automated Exposure Control. FINDINGS: TYPEWRITERS FUNCTIONAL TESTER RADIOGRAPH: Unremarkable. MINERALIZATION: Normal. VERTEBRAL BODIES: Normal in height with no acute compression fracture. DISC SPACES: Severe narrowing at L5-S1 with osteophytic spurring consistent with degenerative changes and large anterior osteophytes at several levels especially at L3-L4 and L4-5 consistent with DISH. ALIGNMENT: Normal. POSTERIOR ELEMENTS: Intact with moderate to severe multilevel facet arthropathy. SPINAL CANAL/NEURAL FORAMEN: T12-L1: No stenosis. L1-L2: No stenosis. L2-L3: Severe facet arthropathy causing mild canal stenosis but no foraminal stenosis. L3-L4: Severe facet arthropathy with mild canal stenosis and mild bilateral neural foraminal stenosis. L4-L5: Disc bulge with severe facet arthropathy, mild canal stenosis, moderate bilateral neural foraminal stenosis. L5-S1: Posterior disc osteophyte complex with mild canal stenosis and severe bilateral neural foraminal stenosis. VISUALIZED UPPER PELVIS: Moderate degenerative changes of the sacroiliac joints. SOFT TISSUES: Diffuse atherosclerotic calcification of the abdominal aorta and visualized iliac arteries. Multiple diverticula in the sigmoid colon with no acute diverticulitis. CT/CT lumbar spine wo con IMPRESSION: 1. No acute fracture or subluxation. 2. Degenerative changes as described in the body of the report. 3. Atherosclerotic calcification and colonic diverticulosis. Electronically authenticated by: GRIFFIN ANTONIO Date: 04/27/2024 21:13
--- NOTE | 2024-04-27 19:02 | ED.BACK1 ---
HPI HPI - Back Pain/Injury General Chief Complaint: Back Pain/Injury Stated Complaint: Back Pain from fall Time Seen by Provider: 04/27/24 18:36 Source: patient Mode of arrival: Wheelchair Limitations: no limitations History of Present Illness HPI Narrative: 53-year-old female presents to the emergency department with significant other with complaint of low back pain, left hip pain. Patient states she injured herself shortly prior to arrival. She was getting into a truck when her left knee buckled, gave out causing her to lose balance and fall backward. Patient states she awkwardly bent backwards, landed on both bags that were on her shoulder and a parking block. States she did drive herself home after the event, attempted to soak her back, but has been progressively worsening since the event. Denies any extremity weakness, motor or sensory changes, paresthesias, loss of bowel or bladder control. Denies any head injury. Quality:?Blunt trauma Severity:?Severe Timing:?Injury occurred prior to arrival, constant Context: Normal setting and activity? Modifying factors:?Pain worse with palpation, movement Associated symptoms: None Related Data Home Medications ?Medication ?Instructions ?Recorded ?Confirmed atorvastatin 10 mg tablet 10 mg PO DAILY 02/20/23 04/27/24 chlorthalidone 25 mg tablet 25 mg PO DAILY 02/20/23 04/27/24 glipizide 10 mg tablet 10 mg PO BID 02/20/23 04/27/24 lisinopril 10 mg tablet 10 mg PO DAILY 02/20/23 04/27/24 pantoprazole 40 mg tablet,delayed 40 mg PO DAILY 02/20/23 04/27/24 release Previous Rx's ?Medication ?Instructions ?Recorded ibuprofen 600 mg tablet 600 mg PO Q8H PRN pain #20 tabs 04/27/24 lidocaine 5 % topical patch 1 patch topical DAILY #15 ea 04/27/24 (Lidoderm) oxycodone-acetaminophen 5 mg-325 1 tab PO Q8H 3 days #9 tabs 04/27/24 mg tablet (Percocet) tizanidine 4 mg capsule 4 mg PO BID PRN muscle spasticity 04/27/24 #14 caps Allergies Allergy/AdvReac Type Severity Reaction Status Date / Time prednisone AdvReac Vomiting Verified 04/03/24 06:19 Opioid HPI Opioid Management Most Recent Opioid Data: Last Pain Scale 10 04/27/24 19:10 Last MAR Pain Assessment 04/27/24 19:10 Review of Systems ROS Gastrointestinal Denies: abdominal pain, nausea or other (Loss of bowel control) Genitourinary Denies: urinary incontinence, blood in urine or difficulty voiding Musculoskeletal Reports: back pain Neurological Denies: numbness in extremities or weakness in extremities PFSH PFS Social History Smoking status: Heavy tobacco smoker Exam Constitutional Vital Signs, click to edit/add: Last Vital Signs Temp 98.0 F 04/27/24 18:03 Pulse 57 L 04/27/24 21:53 Resp 16 04/27/24 21:53 BP 130/75 04/27/24 21:53 Pulse Ox 98 04/27/24 21:53 O2 Del Method Room Air 04/27/24 21:53 Documenting provider has reviewed patient's vital signs: yes Common normals: no apparent distress, oriented x3 and alert HENMT Common normals: normocephalic and head/scalp atraumatic Head and scalp: normocephalic and atraumatic Respiratory Common normals: normal respiratory effort and clear to auscultation bilaterally Effort & inspection: able to speak in complete sentences Cardio Common normals: regular rate, regular rhythm and no murmurs Back & Pelvis Common normals: no CVA tenderness General back: other (No Cornell Amos sign) Lumbar spine/lower back: normal to inspection; no lumbar spinal tenderness, no paraspinal muscle tenderness, no paraspinal muscle spasm and straight leg raise positive Pelvis: no sciatic notch tenderness Extremity Left lower extremity: ankle joint Left ankle: ROM (full with DF, PF, halux DF) Neuro Common normals: oriented x3, moves all extremities, no focal motor deficits, no sensory deficits noted and deep tendon reflexes 2+ bilaterally Sensorium/orientation: alert Speech: speech normal Psych Common normals: mental status grossly normal, thought process normal and cooperative Thought process: normal thought process Course Reevaluation(s) Reevaluation #1: On reevaluation, patient appears and states she is feeling more comfortable after treatment. Discussed with patient results, plan, and disposition. She is agreeable plan for Time: 21:40 Vital Signs Vital signs: Vital Signs Temperature 98.0 F 04/27/24 18:03 Pulse Rate 72 04/27/24 18:03 Respiratory Rate 18 04/27/24 18:03 Blood Pressure 166/99 H 04/27/24 18:03 Pulse Oximetry 97 04/27/24 18:03 Oxygen Delivery Method Room Air 04/27/24 18:03 Temperature 98.0 F 04/27/24 18:03 Pulse Rate 57 L 04/27/24 21:53 Respiratory Rate 16 04/27/24 21:53 Blood Pressure 130/75 04/27/24 21:53 Pulse Oximetry 98 04/27/24 21:53 Oxygen Delivery Method Room Air 04/27/24 21:53 MDM - Back Pain/Injury MDM Narrative Medical decision making narrative: This is a pleasant 53-year-old female who presents to the emergency department with significant other with complaint of low back and left hip pain. Patient status post fall landing on bags she was carrying and a parking block. Denies any radiation, motor or sensory changes, paresthesias, loss of bowel or bladder control, head injury. On arrival, afebrile, vital signs are stable. On exam, nontoxic, uncomfortable appearing patient in no gross distress. She has tenderness to the spinous process of the lower lumbar spine and tenderness to the left lower back/hip region. No crepitus, deformity, step-off noted. Heart regular rate and rhythm. Lung sounds clear and equal bilaterally. She is moving both of her legs symmetrically. Dorsiflexion, plantarflexion, hallux dorsiflexion strong and equal bilaterally. No sensory deficits noted. History and record review Discussion with independent historian: Significant other Favor low back and hip contusion Fracture, dislocation less likely based on imaging Cauda equina less likely based on history, physical exam, no neurologic deficits, incontinence reported Reevaluation: See ED course above Disposition ? The patient was discharged. Plan: Patient will be discharged to home. Condition at time of disposition: stable ? Advised to follow up with primary provider. Advised to return for any worsening and/or development of new, concerning signs or symptoms PLEASE NOTE: Portions of the medical record may have been produced using electronic knowledge manager and may contain errors with respect to translation of words which may not have been identified prior to finalization of the chart. Medical Records Attestation: I reviewed the patient's medical records. Imaging Data CT back and pelvis: Radiologist's impression: ITS Impressions Lumbar Spine CT 04/27/24 18:50 IMPRESSION: 1. No acute fracture or subluxation. 2. Degenerative changes as described in the body of the report. 3. Atherosclerotic calcification and colonic diverticulosis. Electronically authenticated by: GRIFFIN ANTONIO Date: 04/27/2024 21:[address] 04/27/24 18:50 IMPRESSION: 1. No acute osseous abnormality. 2. Colonic diverticulosis and small fat-containing umbilical hernia. Electronically authenticated by: GRIFFIN ANTONIO Date: 04/27/2024 21:29 Discharge Plan Discharge Stand Alone Forms: Work/School Release, Portal Instructions Chief Complaint: Back Pain/Injury Clinical Impression: Back contusion Qualifiers: Encounter type: initial encounter Laterality: unspecified laterality Qualified Code(s): S20.229A - Contusion of unspecified back wall of thorax, initial encounter Back strain Qualifiers: Encounter type: initial encounter Qualified Code(s): S39.012A - Strain of muscle, fascia and tendon of lower back, initial encounter Patient Disposition: Home, Self-Care Time of Disposition Decision: 21:43 Condition: Good Mode of Transportation: Private Vehicle Prescriptions / Home Meds: New oxycodone-acetaminophen [Percocet] 5-325 mg tablet 1 tab PO Q8H 3 Days Qty: 9 0RF tizanidine 4 mg capsule 4 mg PO BID PRN (Reason: muscle spasticity) Qty: 14 0RF ibuprofen 600 mg tablet 600 mg PO Q8H PRN (Reason: pain) Qty: 20 0RF lidocaine [Lidoderm] 5 % adhesive patch,medicated 1 patch topical DAILY Qty: 15 0RF Rx Instructions: leave on most painful area for up to 12 hrs No Action atorvastatin 10 mg tablet 10 mg PO DAILY chlorthalidone 25 mg tablet 25 mg PO DAILY glipizide 10 mg tablet 10 mg PO BID lisinopril 10 mg tablet 10 mg PO DAILY pantoprazole 40 mg tablet,delayed release (DR/EC) 40 mg PO DAILY Print Language: Greek Instructions: Low Back Strain (ED), Back Pain (ED) Referrals: NEGIN HARDWICK [Primary Care Provider] - 1 week Discharge Date/Time: 04/27/24 21:55
[2024-04-27] MEDS: KETOROLAC TROMETHAMINE 30 MG/ML VIAL 15 MG IVP (19:09)
[2024-04-27] MEDS: HYDROMORPHONE HCL 0.5 MG/0.5 ML SYRINGE IV (19:10)
[2024-04-27] MEDS: DIAZEPAM 5 MG TABLET PO (19:10)
[2024-04-27 19:15] VITALS: BP 134/86; PULSE 64; O2SAT 98
[2024-04-27 19:54] VITALS: PULSE 61; O2SAT 98
[2024-04-27 20:37] VITALS: PULSE 61; O2SAT 95
[2024-04-27] MEDS: HYDROCODONE/ACET 5-325 MG TABLET 1 TAB PO (21:51)
[2024-04-27 21:53] VITALS: BP 130/75; PULSE 57; O2SAT 98
== END 2024-04-27 21:55 | disposition home or self-care (01) ==
PROVIDERS: Emergency Provider Emergency Medicine; PCP Nurse Practitioner Family
DX: S39.012A Strain of muscle, fascia and tendon of lower back, initial encounter (principal); S20.229A Contusion of unspecified back wall of thorax, initial encounter; F17.200 Nicotine dependence, unspecified, uncomplicated; W19.XXXA Unspecified fall, initial encounter
CPT/HCPCS: 72131; 72192; 96374; 96375; 99285; J1170; J1885

== ENCOUNTER 2024-05-30 05:36 | Emergency (ER) | payer BC, SELFPAY ==
[2024-05-30 05:40] VITALS: BP 104/65; PULSE 58; TEMP 36.7; O2SAT 100; BMI 42.5
--- OUTSIDE RECORDS SUMMARY | 2024-05-30 05:41 | XMS_ITS | CCD ---
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 Comment on above: Result Comment: ADA RECOMMENDED LIMIT 4.0 - 6.0 ADA THERAPEUTIC TARGET < 7.0 ACTION SUGGESTED > 7.0 Performed By: #### D ATA1C #### [facility] [address] [address] [address] Ayleen Navarro Glucose [Mass/Vol] 192 mg/dL Normal [facility] Comment on above: Performed By: #### D ATA1C #### [facility] [address] [address] [address] Ayleen Navarro HbA1c (Bld) [Mass fraction] 8.3 % Critically high 4.5-6.2 [facility] Comment on above: Performed By: #### D ATA1C #### [facility] [address] [address] [address] Ayleen Navarro GLYCOHEMOGLOBIN A1Con 2021 ADA RECOMMENDATION SEE BELOW Normal [facility] Comment on above: Result Comment: ADA RECOMMENDED LIMIT 4.0 - 6.0 ADA THERAPEUTIC TARGET < 7.0 ACTION SUGGESTED > 7.0 Performed By: #### D ATA1C ####[facility] [address] [address]Dr. Ayleen Navarro Glucose [Mass/Vol] 180 mg/dL Normal [facility] Comment on above: Performed By: #### D ATA1C ####[facility] [address] [address]Dr. Ayleen Navarro HbA1c (Bld) [Mass fraction] 7.9 % Critically high 4.5-6.2 [facility] Comment on above: Performed By: #### D ATA1C ####[facility] [address] [address]Dr. Ayleen Navarro CBC AUTO DIFFon 06-13-2022 BASO # 0.1 103/ul Normal 0.0-0.1 [facility] Comment on above: Performed By: #### C BC #### [facility] [address] [address] [address] Ayleen Navarro Basophils/100 WBC (Bld) 0.7 % Normal 0.2-2.0 [facility] Comment on above: Performed By: #### C BC #### [facility] [address] [address] [address] Ayleen Navarro EO # 0.2 103/ul Normal 0.0-0.7 [facility] Comment on above: Performed By: #### C BC #### [facility] [address] [address] [address] Ayleen Navarro Eosinophils/100 WBC (Bld) 2.1 % Normal 0.9-7.0 [facility] Comment on above: Performed By: #### C BC #### [facility] [address] [place] [address] Dr. Ayleen Navarro Erythrocyte distribution width (RBC) [Ratio] 12.6 % Normal 11.0-15.0 [facility] Comment on above: Performed By: #### C BC #### [facility] [address] [address] [address] Ayleen Navarro Hematocrit (Bld) [Volume fraction] 42.8 % Normal 36.0-48.0 [facility] Comment on above: Performed By: #### C BC #### [facility] [address] [address] [address] Ayleen Navarro Hemoglobin (Bld) [Mass/Vol] 14.3 g/dL Normal 12.0-16.0 [facility] Comment on above: Performed By: #### C BC #### [facility] [address] [address] [address] Ayleen Navarro IG # 0.05 10e3/ul Critically high 0.00-0.03 [facility] Comment on above: Performed By: #### C BC #### [facility] [address] [address] [address] Ayleen Navarro IG % 0.5 % Normal 0.0-0.5 [facility] Comment on above: Performed By: #### C BC #### [facility] [address] [place] [address] Dr. Ayleen Navarro LYMPH # 3.4 103/ul Normal 1.2-3.8 [facility] Comment on above: Performed By: #### C BC #### [facility] [address] [place] [address] Dr. Ayleen Navarro Lymphocytes/100 WBC (Bld) 31.5 % Normal 20.5-60.0 [facility] Comment on above: Performed By: #### C BC #### [facility] [address] [place] [address] Dr. Ayleen Navarro MANUAL DIFF REQ NO Normal [facility] Comment on above: Performed By: #### C BC #### [facility] [address] [place] [address] Dr. Ayleen Navarro MCH (RBC) [Entitic mass] 29.3 pg Normal 26.7-34.0 [facility] Comment on above: Performed By: #### C BC #### [facility] [address] [place] [address] Dr. Ayleen Navarro MCHC (RBC) [Mass/Vol] 33.4 g/dL Normal 29.9-35.2 [facility] Comment on above: Performed By: #### C BC #### [facility] [address] [place] [address] Dr. Ayleen Navarro MCV (RBC) [Entitic vol] 87.7 fL Normal 81.0-99.0 [facility] Comment on above: Performed By: #### C BC #### [facility] [address] [place] [address] Dr. Ayleen Navarro MONO # 0.6 103/ul Normal 0.3-0.8 [facility] Comment on above: Performed By: #### C BC #### [facility] [address] [place] [address] Dr. Ayleen Navarro Monocytes/100 WBC (Bld) 5.5 % Normal 1.7-12.0 [facility] Comment on above: Performed By: #### C BC #### [facility] [address] [place] [address] Dr. Ayleen Navarro NEUT # 6.4 103/ul Normal 1.4-6.5 [facility] Comment on above: Performed By: #### C BC #### [facility] [address] [place] [address] Dr. Ayleen Navarro Neutrophils/100 WBC (Bld) 59.7 % Normal 43.0-75.0 [facility] Comment on above: Performed By: #### C BC #### [facility] [address] [place] [address] Dr. Ayleen Navarro Platelet mean volume (Bld) [Entitic vol] 10.9 fL Normal 9.5-13.5 [facility] Comment on above: Performed By: #### C BC #### [facility] [address] [place] [address] Dr. Ayleen Navarro PLT 229 103/ul Normal 150-450 [facility] Comment on above: Performed By: #### C BC #### [facility] [address] [place] [address] Dr. Ayleen Navarro RBC 4.88 106/ul Normal 4.20-5.40 [facility] Comment on above: Performed By: #### C BC #### [facility] [address] [place] [address] Dr. Ayleen Navarro WBC 10.7 103/ul Normal 4.0-11.0 [facility] Comment on above: Performed By: #### C BC #### [facility] [address] [place] [address] Dr. Ayleen Navarro PROF 14(COMP METB)on 022 Albumin [Mass/Vol] 3.2 g/dL Critically low 3.4-5.0 [facility] Comment on above: Performed By: #### H BENI, CMP #### [facility] [address] [place] [address] Dr. Ayleen Navarro Albumin/Globulin [Mass ratio] 0.8 {ratio} Normal [facility] Comment on above: Performed By: #### H BENI, CMP #### [facility] [address] [address] [address] Ayleen Navarro ALP [Catalytic activity/Vol] 76 U/L Normal 46-116 [facility] Comment on above: Performed By: #### H STROPN, CMP #### [facility] [address] [address] [address] Ayleen Navarro ALT [Catalytic activity/Vol] 24 U/L Normal 14-59 [facility] Comment on above: Performed By: #### H STROPN, CMP #### [facility] [address] [address] [address] Ayleen Navarro Anion gap [Moles/Vol] 8.5 mmol/L Normal [facility] Comment on above: Performed By: #### H STROPN, CMP #### [facility] [address] [address] [address] Ayleen Navarro AST [Catalytic activity/Vol] 4 U/L Critically low 15-37 [facility] Comment on above: Performed By: #### H STROPN, CMP #### [facility] [address] [address] [address] Ayleen Navarro Bilirubin [Mass/Vol] 0.2 mg/dL Normal 0.2-1.0 [facility] Comment on above: Performed By: #### H STROPN, CMP #### [facility] [address] [address] [address] Ayleen Navarro Calcium [Mass/Vol] 8.8 mg/dL Normal 8.5-10.[address] [facility] Comment on above: Performed By: #### H STROPN, CMP #### [facility] [address] [address] [address] Ayleen Navarro Chloride [Moles/Vol] 99 mmol/L Normal 98-107 [facility] Comment on above: Performed By: #### H STROPN, CMP #### [facility] [address] [address] [address] Ayleen Navarro CO2 [Moles/Vol] 29.9 mmol/L Normal 21.0-32.0 [facility] Comment on above: Performed By: #### H STROPN, CMP #### [facility] [address] [address] [address] Ayleen Navarro Creatinine [Mass/Vol] 0.88 mg/dL Normal 0.55-1.02 [facility] Comment on above: Performed By: #### H STROPN, CMP #### [facility] [address] [address] [address] Ayleen Navarro EGFR-AF DOMINICAN >60 Normal >=60 [facility] Comment on above: Performed By: #### H STROPN, CMP #### [facility] [address] [address] [address] Ayleen Navarro EGFR-NON AF DOMINICAN >60 Normal >=60 [facility] Comment on above: Performed By: #### H STROPN, CMP #### [facility] [address] [address] [address] Ayleen Navarro Globulin (S) [Mass/Vol] 3.9 g/dL Normal [facility] Comment on above: Performed By: #### H STROPN, CMP #### [facility] [address] [address] [address] Ayleen Navarro Glucose [Mass/Vol] 245 mg/dL Critically high 74-106 [facility] Comment on above: Performed By: #### H STROPN, CMP #### [facility] [address] [address] [address] Ayleen Navarro Potassium [Moles/Vol] 3.4 mmol/L Critically low 3.5-5.1 [facility] Comment on above: Performed By: #### H STROPN, CMP #### [facility] [address] [address] [address] Ayleen Navarro Protein [Mass/Vol] 7.1 g/dL Normal 6.4-8.[address] [facility] Comment on above: Performed By: #### H STROPN, CMP #### [facility] [address] [address] [address] Ayleen Navarro Sodium [Moles/Vol] 134 mmol/L Critically low 136-145 [facility] Comment on above: Performed By: #### H STROPN, CMP #### [facility] [address] [place], [place] [address] Dr. Ayleen Navarro Urea nitrogen [Mass/Vol] 18.0 mg/dL Normal 7.0-18.0 [facility] Comment on above: Performed By: #### H STROPN, CMP #### [facility] [address] [place], [place] [address] Dr. Ayleen Navarro Urea nitrogen/Creatinine [Mass ratio] 20.5 mg/mg Normal [facility] Comment on above: Performed By: #### H STROPN, CMP #### [facility] [address] [place], [place] [address] Dr. Ayleen Navarro TROPONIN, HIGH SENSITIVITYon 06-13-2022 HSTROP 8.6 pg/mL Normal 4.0-51.3 [facility] Comment on above: Result Comment: CUT- OFF POINTS HAVE BEEN ESTABLISHED BASED ON THE FOURTH UNIVERSAL DEFINITIONS OF MYOCARDIAL INFARCTION. THE UPPER REFERENCE LIMIT (URL) OF TROPONIN, DEFINED THE 99TH PERCENTILE OF cTnI DISTRIBUTION IN A REFERENCE POPULATION, HAS BEEN CONFIRMED THE DECISION THRESHOLD FOR DC DIAGNOSIS. Performed By: #### H STROPN ####[facility] [address] [place], [place] [address]QmDr. Ayleen Navarro HSTROP <4.0 Normal 4.0-51.3 [facility] Comment on above: Result Comment: CUT- OFF POINTS HAVE BEEN ESTABLISHED BASED ON THE FOURTH UNIVERSAL DEFINITIONS OF MYOCARDIAL INFARCTION. THE UPPER REFERENCE LIMIT (URL) OF TROPONIN, DEFINED THE 99TH PERCENTILE OF cTnI DISTRIBUTION IN A REFERENCE POPULATION, HAS BEEN CONFIRMED THE DECISION THRESHOLD FOR DC DIAGNOSIS. Performed By: #### H STROPN, CMP #### [facility] [address] [place], [place] [address] Dr. Ayleen Navarro XR CHEST 1 Von [...] 04:44 Normal [facility] INSULINon 02-23-2022 Insulin 22.9 uIU/mL Normal 2.6-24.9 [facility] Comment on above: Performed By: #### I NSULIN #### [facility] [address] [address] [address] Ayleen Navarro CBC AUTO DIFFon 02-22-2022 BASO # 0.1 103/ul Normal 0.0-0.1 [facility] Comment on above: Performed By: #### C BC ####[facility] [address] [address]Dr. Ayleen Navarro Basophils/100 WBC (Bld) 0.9 % Normal 0.2-2.0 [facility] Comment on above: Performed By: #### C BC ####[facility] [address] [address]Dr. Ayleen Navarro EO # 0.2 103/ul Normal 0.0-0.7 [facility] Comment on above: Performed By: #### C BC ####[facility] [address] [address]Dr. Ayleen Navarro Eosinophils/100 WBC (Bld) 2.6 % Normal 0.9-7.0 [facility] Comment on above: Performed By: #### C BC ####[facility] [address] [address]Dr. Ayleen Navarro Erythrocyte distribution width (RBC) [Ratio] 13.3 % Normal 11.0-15.0 [facility] Comment on above: Performed By: #### C BC ####[facility] [address] [address]Dr. Ayleen Navarro Hematocrit (Bld) [Volume fraction] 42.8 % Normal 36.0-48.0 [facility] Comment on above: Performed By: #### C BC ####[facility] [address] [address]Dr. Ayleen Navarro Hemoglobin (Bld) [Mass/Vol] 14.3 g/dL Normal 12.0-16.0 [facility] Comment on above: Performed By: #### C BC ####[facility] [address] [address]DrMiky Navarro IG # 0.05 10e3/ul Critically high 0.00-0.03 [facility] Comment on above: Performed By: #### C BC ####[facility] [address] [address]DrMiky Navarro IG % 0.5 % Normal 0.0-0.5 [facility] Comment on above: Performed By: #### C BC ####[facility] [address] [place], [place] [address]DrMiky Navarro LYMPH # 3.0 103/ul Normal 1.2-3.8 [facility] Comment on above: Performed By: #### C BC ####[facility] [address] [place], [place] [address]DrMiky Navarro Lymphocytes/100 WBC (Bld) 32.4 % Normal 20.5-60.0 [facility] Comment on above: Performed By: #### C BC ####[facility] [address] [place], [place] [address]DrMiky Navarro MANUAL DIFF REQ NO Normal [facility] Comment on above: Performed By: #### C BC ####[facility] [address] [place], [place] [address]DrMiky Navarro MCH (RBC) [Entitic mass] 29.5 pg Normal 26.7-34.0 [facility] Comment on above: Performed By: #### C BC ####[facility] [address] [place], [place] [address]DrMiky Navarro MCHC (RBC) [Mass/Vol] 33.4 g/dL Normal 29.9-35.2 [facility] Comment on above: Performed By: #### C BC ####[facility] [address] [place], [place] [address]DrMiky Navarro MCV (RBC) [Entitic vol] 88.2 fL Normal 81.0-99.0 [facility] Comment on above: Performed By: #### C BC ####[facility] [address] [place], [place] [address]Dr. Ayleen Navarro MONO # 0.6 103/ul Normal 0.3-0.8 [facility] Comment on above: Performed By: #### C BC ####[facility] [address] [place], [place] [address]Dr. Ayleen Ramon Monocytes/100 WBC (Bld) 6.7 % Normal 1.7-12.0 [facility] Comment on above: Performed By: #### C BC ####[facility] [address] [place], [place] [address]Dr. Ayleen Navarro NEUT # 5.3 103/ul Normal 1.4-6.5 [facility] Comment on above: Performed By: #### C BC ####[facility] [address] [place], [place] [address]Dr. Ayleen Ramon Neutrophils/100 WBC (Bld) 56.9 % Normal 43.0-75.0 [facility] Comment on above: Performed By: #### C BC ####[facility] [address] [place], [place] [address]Dr. Ayleen Navarro Platelet mean volume (Bld) [Entitic vol] 11.0 fL Normal 9.5-13.5 [facility] Comment on above: Performed By: #### C BC ####[facility] [address] [place], [place] [address]Dr. Ayleen Ramon PLT 239 103/ul Normal 150-450 [facility] Comment on above: Performed By: #### C BC ####[facility] [address] [place], [place] [address]Dr. Ayleen Ramon RBC 4.85 106/ul Normal 4.20-5.40 [facility] Comment on above: Performed By: #### C BC ####[facility] [address] [place], [place] [address]Dr. Ayleen Navarro WBC 9.3 103/ul Normal 4.0-11.0 [facility] Comment on above: Performed By: #### C BC ####[facility] [address] [address]Dr. Ayleen Navarro FREE THYROXINE INDEX T7on FTI 3.36 Normal 1.30-4.50 [facility] Comment on above: Performed By: #### L IPID, CMP, T7, TSH #### [facility] [address] [address] [address] Ayleen Navarro T3U 32.0 % Normal 30.0-39.0 [facility] Comment on above: Performed By: #### L IPID, CMP, T7, TSH #### [facility] [address] [address] [address] Ayleen Navarro T4 [Mass/Vol] 10.50 ug/dL Normal 4.80-13.90 [facility] Comment on above: Performed By: #### L IPID, CMP, T7, TSH #### [facility] [address] [address] [address] Ayleen Navarro IRONon 02-22-2022 Iron [Mass/Vol] 117.0 ug/dL Normal 50.0-170.0 [facility] Comment on above: Performed By: #### I FEDERICO ####[facility] [address] [address]Dr. Ayleen Navarro LIPID PROFILEon 02-22-2022 CHOL-HDL RATIO NORM SEE BELOW Normal [facility] Comment on above: Result Comment: 3.3 - 4.4 LOW RISK 4.4 - 7.1 AVERAGE RISK 7.1 - 11.0 MODERATE RISK >11.0 HIGH RISK Performed By: #### L IPID, CMP, T7, TSH #### [facility] [address] [address] [address] Ayleen Navarro Cholesterol [Mass/Vol] 161 mg/dL Normal <=200 [facility] Comment on above: Performed By: #### L IPID, CMP, T7, TSH #### [facility] [address] [address] [address] Ayleen Navarro Cholesterol in HDL [Mass/Vol] 42 mg/dL Normal 40-60 [facility] Comment on above: Performed By: #### L IPID, CMP, T7, TSH #### [facility] [address] [address] [address] Ayleen Navarro Cholesterol in LDL [Mass/Vol] 98.4 mg/dL Normal [facility] Comment on above: Performed By: #### L IPID, CMP, T7, TSH #### [facility] [address] [address] [address] Ayleen Navarro Cholesterol.total/Cho lesterol in HDL [Mass ratio] 3.8 {ratio} Normal [facility] Comment on above: Performed By: #### L IPID, CMP, T7, TSH #### [facility] [address] [address] [address] Ayleen Navarro HDL NORMAL > or = 60 mg/dl - LO W CARDIOVASCULAR RISK <40 mg/dl - HIGH CARDIOVASCULAR RISK Normal [facility] Comment on above: Performed By: #### L IPID, CMP, T7, TSH #### [facility] [address] [address] [address] Ayleen Navarro LDL CALC NORMAL SEE BELOW Normal [facility] Comment on above: Result Comment: <100 mg/dl OPTIMAL 100 - 129 mg/dl NEAR OR ABOVE OPTIMAL 130 - 159 mg/dl BORDERLINE HIGH 160 - 189 mg/dl HIGH >190 mg/dl VERY HIGH Performed By: #### L IPID, CMP, T7, TSH #### [facility] [address] [address] [address] Ayleen Navarro Triglyceride [Mass/Vol] 103 mg/dL Normal <=150 [facility] Comment on above: Performed By: #### L IPID, CMP, T7, TSH #### [facility] [address] [address] [address] Ayleen Navarro VLDL CALC 20.6 mg/dL Normal [facility] Comment on above: Performed By: #### L IPID, CMP, T7, TSH #### [facility] [address] [address] [address] Ayleen Navarro PROF 14(COMP METB)on 022 Albumin [Mass/Vol] 3.4 g/dL Normal 3.4-5.[address] [facility] Comment on above: Performed By: #### L IPID, CMP, T7, TSH #### [facility] [address] [address] [address] Ayleen Navarro Albumin/Globulin [Mass ratio] 0.9 {ratio} Normal [facility] Comment on above: Performed By: #### L IPID, CMP, T7, TSH #### [facility] [address] [place] [address] Dr. Ayleen Navarro ALP [Catalytic activity/Vol] 71 U/L Normal 46-116 [facility] Comment on above: Performed By: #### L IPID, CMP, T7, TSH #### [facility] [address] [place] [address] Dr. Ayleen Navarro ALT [Catalytic activity/Vol] 25 U/L Normal 14-59 [facility] Comment on above: Performed By: #### L IPID, CMP, T7, TSH #### [facility] [address] [address] [address] Ayleen Navarro Anion gap [Moles/Vol] 10.1 mmol/L Normal [facility] Rehabilitation Comment on above: Performed By: #### L IPID, CMP, T7, TSH #### [facility] [address] [place] [address] Dr. Ayleen Navarro AST [Catalytic activity/Vol] 11 U/L Critically low 15-37 [facility] Comment on above: Performed By: #### L IPID, CMP, T7, TSH #### [facility] [address] [place] [address] Dr. Ayleen Navarro Bilirubin [Mass/Vol] 0.5 mg/dL Normal 0.2-1.0 [facility] Comment on above: Performed By: #### L IPID, CMP, T7, TSH #### [facility] [address] [place] [address] Dr. Ayleen Navarro Calcium [Mass/Vol] 8.8 mg/dL Normal 8.5-10.[address] [facility] Comment on above: Performed By: #### L IPID, CMP, T7, TSH #### [facility] [address] [address] [address] Ayleen Navarro Chloride [Moles/Vol] 100 mmol/L Normal 98-107 [facility] Comment on above: Performed By: #### L IPID, CMP, T7, TSH #### [facility] [address] [address] [address] Ayleen Navarro CO2 [Moles/Vol] 29.5 mmol/L Normal 21.0-32.0 [facility] Comment on above: Performed By: #### L IPID, CMP, T7, TSH #### [facility] [address] [place] [address] Dr. Ayleen Navarro Creatinine [Mass/Vol] 0.61 mg/dL Normal 0.55-1.02 [facility] Comment on above: Performed By: #### L IPID, CMP, T7, TSH #### [facility] [address] [address] [address] Ayleen Navarro EGFR-AF DOMINICAN >60 Normal >=60 [facility] Comment on above: Performed By: #### L IPID, CMP, T7, TSH #### [facility] [address] [place] [address] Dr. Ayleen Navarro EGFR-NON AF DOMINICAN >60 Normal >=60 [facility] Comment on above: Performed By: #### L IPID, CMP, T7, TSH #### [facility] [address] [address] [address] Ayleen Navarro Globulin (S) [Mass/Vol] 3.9 g/dL Normal [facility] Comment on above: Performed By: #### L IPID, CMP, T7, TSH #### [facility] [address] [place] [address] Dr. Ayleen Navarro Glucose [Mass/Vol] 119 mg/dL Critically high 74-106 T [facility] Comment on above: Performed By: #### L IPID, CMP, T7, TSH #### [facility] [address] [place] [address] Dr. Ayleen Navarro Potassium [Moles/Vol] 3.6 mmol/L Normal 3.5-5.1 [facility] Comment on above: Performed By: #### L IPID, CMP, T7, TSH #### [facility] [address] [address] [address] Ayleen Navarro Protein [Mass/Vol] 7.3 g/dL Normal 6.4-8.[address] [facility] Comment on above: Performed By: #### L IPID, CMP, T7, TSH #### [facility] [address] [address] [address] Ayleen Navarro Sodium [Moles/Vol] 136 mmol/L Normal 136-[address] [facility] Comment on above: Performed By: #### L IPID, CMP, T7, TSH #### [facility] [address] [address] [address] Ayleen Navarro Urea nitrogen [Mass/Vol] 19.0 mg/dL Critically high 7.0-18.0 [facility] Comment on above: Performed By: #### L IPID, CMP, T7, TSH #### [facility] [address] [address] [address] Ayleen Navarro Urea nitrogen/Creatinine [Mass ratio] 31.1 mg/mg Normal [facility] Comment on above: Performed By: #### L IPID, CMP, T7, TSH #### [facility] [address] [address] [address] Ayleen Navarro TSHon 02-22-2022 TSH 0.964 uIU/mL Normal 0.358-3.740 [facility] Comment on above: Performed By: #### L IPID, CMP, T7, TSH #### [facility] [address] [address] [address] Ayleen Navarro GLYCOHEMOGLOBIN A1Con 2021 ADA RECOMMENDATION SEE BELOW Normal [facility] Comment on above: Result Comment: ADA RECOMMENDED LIMIT 4.0 - 6.0 ADA THERAPEUTIC TARGET < 7.0 ACTION SUGGESTED > 7.0 Performed By: #### A 1C ####[facility] [id number] [place], [place] [address]Vs. Ayleen Navarro Glucose [Mass/Vol] 140 mg/dL Normal [facility] Comment on above: Performed By: #### A 1C ####[facility] [id number] [place], [place] [address]Zn. Ayleen Navarro HbA1c (Bld) [Mass fraction] 6.5 % Critically high 4.5-6.2 [facility] Comment on above: Performed By: #### A 1C ####[facility] [id number] [place], [place] [address]Tk. Ayleen Navarro Encounters Encounter Date Encounter Type Care Provider Facility Start: 11-23-2022 Encounter for genera l adult medical examination without abnormal findings NEGIN HARDWICK [facility] Start: 11-19-2022 End: 11-20-2022 ambulatory NEGIN [...] Facility:[facility]1 Payers Date Payer Category Payer Unknown [id number] [id number] [id number] 1970 Unknown [id number] 1970 Unknown [id number] 1960 Self-pay 1960 Unknown [id number] 1960 Unknown Unknown [id number] Unknown [id number] 10.17.84 [id number] Summary Purpose Family History No Family History [...] BE BASED ON THE PRIMARY CLINICAL RECORDS. [employer] [facility]. provides no warranty or guarantee of the accuracy or completeness of information in this document.
--- NOTE | 2024-05-30 05:52 | XR_ITS ---
The [address] [address] Patient Name: KEVIN CUNHA MRN: [id number] date: 1970 Sex: F Assigned Patient Location: ER Current Patient Location: ER Accession/Order Number: [id number] Exam Date: 05/30/2024 06:15 Report Date: 05/30/2024 06:41 At the request of: MICHELLE WILLETT Procedure: XR knee LT 4V EXAM: XR knee LT 4V HISTORY: trauma COMPARISON: Left knee radiographs dated 02/04/2024. TECHNIQUE: 4 views of the left knee were obtained. FINDINGS: No acute fracture or dislocation is seen. There are advanced degenerative changes of the lateral compartment with moderate to advanced degenerative changes of the medial compartment and moderate degenerative changes of the lateral compartment. Ossific joint bodies are seen. There is no significant left knee joint effusion. XR/XR knee LT 4V IMPRESSION: 1. No acute fracture or dislocation of the left knee is seen. If there is concern for internal derangement, a nonemergent outpatient MRI is recommended. Electronically authenticated by: Radha GONZALEZ Date: 05/30/2024 06:41
--- NOTE | 2024-05-30 05:52 | XR_ITS ---
The [address] [address] Patient Name: KEVIN CUNHA MRN: [id number] date: 1970 Sex: F Assigned Patient Location: ER Current Patient Location: Accession/Order Number: [id number] Exam Date: 05/30/2024 06:15 Report Date: 05/30/2024 06:38 At the request of: MICHELLE WILLETT Procedure: XR ankle LT min 3V EXAM: XR ankle LT min 3V HISTORY: Trauma; technologist notes state left ankle and left knee pain after a fall 2 days ago with worsening swelling, redness and increased warmth of the left ankle. COMPARISON: None. TECHNIQUE: AP, mortise and lateral views of the left ankle performed. FINDINGS: There are chronic ossicles inferior to the medial malleolus. There is no fracture. The plafond and talar dome are smoothly marginated. There is no osteochondral injury along the talar dome. The ankle mortise is anatomic. The lateral process of the talus is prominent. There are mild degenerative changes at the tibiotalar articulation. There is mild hypertrophic bone along the dorsal margin of the talar head neck. There are small enthesophytes at the calcaneal attachment of the Achilles tendon and plantar fascia. There are stranding densities within the subcutaneous tissues of the left lower leg and moderate soft tissue swelling at the ankle. XR/XR ankle LT min 3V IMPRESSION: There is no acute fracture or malalignment. There are stranding densities within the subcutaneous tissues of the left lower leg and moderate soft tissue swelling at the ankle. Chronic findings as described in the body the report. Electronically authenticated by: DARSHANA NOE Date: 05/30/2024 06:38
--- NOTE | 2024-05-30 05:53 | ED_ITS ---
HPI HPI - General Adult General Chief complaint: Extremity Injury, Lower Stated complaint: LE INJURY Time Seen by Provider: 05/30/24 05:38 Source: patient Mode of arrival: Wheelchair Limitations: no limitations History of Present Illness HPI narrative: 53-year-old female to the emergency department chief complaint of injury to her left lower extremity. 2 days ago the patient reports she was walking to the bathroom and she stepped down funny and twisted on her left lower extremity. She reports pain in her knee and pain in her ankle following the injury. She has some bruising on her ankle. No other injuries. She did not fall the ground. She has been taking Tylenol and ibuprofen at home which are ineffective. Related Data Home Medications ?Medication ?Instructions ?Recorded ?Confirmed atorvastatin 10 mg tablet 10 mg PO DAILY 02/20/23 04/27/24 chlorthalidone 25 mg tablet 25 mg PO DAILY 02/20/23 04/27/24 glipizide 10 mg tablet 10 mg PO BID 02/20/23 04/27/24 lisinopril 10 mg tablet 10 mg PO DAILY 02/20/23 04/27/24 pantoprazole 40 mg tablet,delayed 40 mg PO DAILY 02/20/23 04/27/24 release Previous Rx's ?Medication ?Instructions ?Recorded ibuprofen 600 mg tablet 600 mg PO Q8H PRN pain #20 tabs 04/27/24 lidocaine 5 % topical patch 1 patch topical DAILY #15 ea 04/27/24 (Lidoderm) oxycodone-acetaminophen 5 mg-325 1 tab PO Q8H 3 days #9 tabs 04/27/24 mg tablet (Percocet) tizanidine 4 mg capsule 4 mg PO BID PRN muscle spasticity 04/27/24 #14 caps oxycodone-acetaminophen 5 mg-325 1 tab PO Q6H PRN pain 3 days #12 05/30/24 mg tablet (Percocet) tabs Allergies Allergy/AdvReac Type Severity Reaction Status Date / Time prednisone AdvReac Vomiting Verified 05/30/24 05:46 Opioid HPI Opioid Management Most Recent Opioid Data: Last Pain Scale 9 05/30/24 05:59 Last ED Pain Assessment 05/30/24 05:54 Last MAR Pain Assessment 05/30/24 05:59 Review of Systems ROS Status of ROS 10 or more systems reviewed and unremark able except as noted in history and below [facility] Medical History (Updated 05/30/24 @ 06:50 by Aaron Brennan MD) 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 GENERAL: Morbidly obese adult female in no distress NEURO: Alert and oriented. Moves all extremities. Face is symmetric and expressive. EYES: PERRL. No scleral icterus or conjunctival injection. No discharge. HENT: Normocephalic, atraumatic. Hearing is grossly intact. Nares grossly patent and without discharge. Mucous membranes moist. NECK: No JVD. Patient moves neck without restriction. Left lower extremity: No deformity. DP and PT pulses are intact. Sensation is intact over the foot and lower leg. Plantar dorsiflexion is intact but painful. Knee flexion extension is intact but painful. Hip flexion extension is intact. Limb is similar color and temperature to the contralateral extremity. No lacerations or breaks in the skin. She has some sequelae of chronic venous stasis disease on the left ankle. SKIN: Warm and dry. Normal turgor. No rash or lesions appreciated. PSYCH: Mood, affect, and interaction is appropriate to the setting. Constitutional Vital Signs, click to edit/add: Last Vital Signs Temp 98.1 F 05/30/24 05:40 Pulse 58 L 05/30/24 05:40 Resp 18 05/30/24 05:40 BP 104/65 05/30/24 05:40 Pulse Ox 100 05/30/24 05:40 O2 Del Method Room Air 05/30/24 05:40 Course Vital Signs Vital signs: Vital Signs Temperature 98.1 F 05/30/24 05:40 Pulse Rate 58 L 05/30/24 05:40 Respiratory Rate 18 05/30/24 05:40 Blood Pressure 104/65 05/30/24 05:40 Pulse Oximetry 100 05/30/24 05:40 Oxygen Delivery Method Room Air 05/30/24 05:40 Temperature 98.1 F 05/30/24 05:40 Pulse Rate 58 L 05/30/24 05:40 Respiratory Rate 18 05/30/24 05:40 Blood Pressure 104/65 05/30/24 05:40 Pulse Oximetry 100 05/30/24 05:40 Oxygen Delivery Method Room Air 05/30/24 05:40 Medical Decision Making MDM Narrative Medical decision making narrative: 53-year-old female to the emergency department chief complaint of. Vital stable, the patient is afebrile. The left lower extremity is neurovascularly intact. X-ray imaging to evaluate for fracture. Percocet is ordered for her acute pain. Patient agrees with this plan. X-rays without acute findings. Gibran wrap, Percocet, discharged home. Orthopedic follow-up. Patient agrees with this plan. Medical Records Medical records reviewed: Yes I reviewed the patient's medical records Imaging Data X-ray ankle: Attestation: I have reviewed the pertinent imaging results. Radiologist's impression: ITS Impressions Ankle X-Ray 05/30/24 05:52 IMPRESSION: There is no acute fracture or malalignment. There are stranding densities within the subcutaneous tissues of the left lower leg and moderate soft tissue swelling at the ankle. Chronic findings as described in the body the report. Electronically authenticated by: DARSHANA NOE Date: 05/30/2024 06:38 Knee X-Ray 05/30/24 05:52 IMPRESSION: 1. No acute fracture or dislocation of the left knee is seen. If there is concern for internal derangement, a nonemergent outpatient MRI is recommended. Electronically authenticated by: Radha GONZALEZ Date: 05/30/2024 06:41 Discharge Plan Discharge Chief Complaint: Extremity Injury, Lower Clinical Impression: Ankle sprain Patient Disposition: Home, Self-Care Time of Disposition Decision: 06:50 Condition: Good Mode of Transportation: Private Vehicle Prescriptions / Home Meds: New oxycodone-acetaminophen [Percocet] 5-325 mg tablet 1 tab PO Q6H PRN (Reason: pain) 3 Days Qty: 12 0RF No Action oxycodone-acetaminophen [Percocet] 5-325 mg tablet 1 tab PO Q8H 3 Days Qty: 9 0RF tizanidine 4 mg capsule 4 mg PO BID PRN (Reason: muscle spasticity) Qty: 14 0RF ibuprofen 600 mg tablet 600 mg PO Q8H PRN (Reason: pain) Qty: 20 0RF lidocaine [Lidoderm] 5 % adhesive patch,medicated 1 patch topical DAILY Qty: 15 0RF Rx Instructions: leave on most painful area for up to 12 hrs atorvastatin 10 mg tablet 10 mg PO DAILY chlorthalidone 25 mg tablet 25 mg PO DAILY glipizide 10 mg tablet 10 mg PO BID lisinopril 10 mg tablet 10 mg PO DAILY pantoprazole 40 mg tablet,delayed release (DR/EC) 40 mg PO DAILY Print Language: Mauritanian Instructions: Ankle Sprain (DC), How to Use an Elastic Bandage (ED), P.R.I.C.E. Treatment (ED) Additional Instructions: Call the office of your primary care doctor to arrange for follow-up within the above-stated timeframe. Your ED visit was focused on your acute issue and does not replace primary care. You should review your labs, imaging, and diagnoses from this ED visit with your primary care physician. There may be non-emergent/ incidental findings that need further evaluation. You should review your vital signs including blood pressure with your PCP. If you were prescribed medications you should discuss possible side-effects and drug interactions with your pharmacist. Call 911 or go to the nearest Emergency Department if you develop any new or worsening symptoms. Referrals: NEGIN HARDWICK [Primary Care Provider] - 1 week Jose Contreras MD [Physician] - 1 week
[2024-05-30] MEDS: OXYCODONE HCL/ACETAMINOPHEN 5MG/325MG 1 TAB PO (05:59)
[2024-05-30 07:07] VITALS: BP 129/62; PULSE 68; O2SAT 98
== END 2024-05-30 07:09 | disposition home or self-care (01) ==
PROVIDERS: Emergency Provider Student in an Organized Health Care Education/Training Program; PCP Nurse Practitioner Family
DX: S93.402A Sprain of unspecified ligament of left ankle, initial encounter (principal); X50.1XXA Overexertion from prolonged static or awkward postures, initial encounter; E66.01 Morbid (severe) obesity due to excess calories; Z68.41 Body mass index [BMI] 40.0-44.9, adult; F17.200 Nicotine dependence, unspecified, uncomplicated
CPT/HCPCS: 73564; 73610; 99283

== ENCOUNTER 2024-06-19 05:31 | Emergency (ER) | payer BC, SELFPAY ==
--- NOTE | 2024-06-19 05:00 | CT_ITS ---
The [address] [address] Patient Name: KEVIN CUNHA MRN: [id number] date: 1970 Sex: F Assigned Patient Location: ER Current Patient Location: Accession/Order Number: [id number] Exam Date: 06/19/2024 05:00 Report Date: 06/19/2024 06:36 At the request of: GRACIELA VÁSQUEZ Procedure: CT cervical spine wo con EXAM: CT cervical spine wo con HISTORY: Injury after fall COMPARISON: None. TECHNIQUE: Axial images of the cervical spine were obtained without contrast enhancement. Sagittal and coronal reformations were provided. Dose reduction techniques were achieved by using automated exposure control and/or adjustment of mA and/or kV according to patient size and/or use of iterative reconstruction technique COMMENT: The lack of intradural contrast and streak artifact from bone about the vertebral column limit evaluation for disc protrusion, bulge and the spinal canal in general. FINDINGS: There is loss of the normal lordosis and straightening of the cervical vertebral column. No CT evidence of an acute fracture, subluxation or significant loss of vertebral body height. No loss of disc space, endplate osteophyte formation or malalignment at the craniocervical junction. While assessment is again suboptimal on this noncontrast CT, there appears to be disc bulging at a few levels. No convincing evidence of high-grade spinal canal stenosis. The neural foramina are patent. IMPRESSION: 1. No CT evidence of an acute fracture involving the cervical vertebral column. 2. If there is further clinical indication to evaluate the spinal canal, cord or for ligamentous injury consider MRI as it would be more sensitive. Electronically authenticated by: CRIS SINHA Date: 06/19/2024 06:36
--- NOTE | 2024-06-19 05:00 | CT_ITS ---
The [address] [address] Patient Name: KEVIN CUNHA MRN: [id number] date: 1970 Sex: F Assigned Patient Location: ER Current Patient Location: ER Accession/Order Number: [id number] Exam Date: 06/19/2024 05:00 Report Date: 06/19/2024 06:30 At the request of: GRACIELA VÁSQUEZ Procedure: CT head/brain wo con EXAM: CT head/brain wo con HISTORY: Injury after fall COMPARISON: None. TECHNIQUE: Axial images of the brain were obtained from the skull base to the vertex without contrast enhancement. Sagittal and coronal reformations were provided. FINDINGS: No acute intracranial hemorrhage, extra-axial fluid collection, midline shift shift or mass effect is seen. No space-occupying lesion is demonstrated. There is no evidence of hydrocephalus or an acute ischemic event. Bone windows reveal no evidence of an acute maxillofacial fracture. The visualized paranasal sinuses and mastoids are well-aerated. CT/CT head/brain wo con IMPRESSION: No CT evidence of an acute intracranial process or acute calvarial fracture. Electronically authenticated by: CRIS SINHA Date: 06/19/2024 06:30
--- NOTE | 2024-06-19 05:00 | CT_ITS ---
The [address] [address] Patient Name: KEVIN CUNHA MRN: [id number] date: 1970 Sex: F Assigned Patient Location: ER Current Patient Location: ED.MAIN Accession/Order Number: [id number] Exam Date: 06/19/2024 05:00 Report Date: 06/19/2024 06:41 At the request of: GRACIELA VÁSQUEZ Procedure: CT facial bones wo con EXAM: CT facial bones wo con HISTORY: Injury after fall COMPARISON: None. TECHNIQUE: Axial images of the maxillofacial bones were obtained without contrast enhancement. Sagittal and coronal reformations were provided. FINDINGS: There is a fracture involving the alveolar process of the maxilla anteriorly and in the midline. This fracture is noted in proximity to roots of teeth 8 and 9. No other region to suggest an acute maxillofacial fracture is seen. Dental and periodontal disease is noted. Small retention cysts are noted within the right maxillary antrum. The paranasal sinuses are otherwise well-aerated. The mastoids are also well-aerated. The intra and extraconal orbital fat is homogeneous. The globes, optic nerve sheaths, rectus muscles and lacrimal glands appear normal. CT/CT facial bones wo con IMPRESSION: Fracture involving the alveolar process of the maxilla anteriorly and in the midline. This fracture is noted in proximity to the roots of teeth 8 and 9. Electronically authenticated by: CRIS SINHA Date: 06/19/2024 06:41
--- OUTSIDE RECORDS SUMMARY | 2024-06-19 05:34 | XMS_ITS | CCD ---
Author Organization [facility] Care Team Providers Care Closing Coordinator Name Role Phone NEGIN HARDWICK Admitting Unavailable [...] Unavaila ble RONEN, NEGIN Admitting Unavailable RONEN, NEIGN Attending Unavailable RONEN, NEGIN Primary Care Unavailable RONEN, NEGIN Consulting Unavailable Allergies Allergy Classification Reported Allergen(s) Allergy Type Date of Onset Reaction(s) Facility (1 source) predniSONE Drug Allergy 12-09-2020 [facility] Repository Problems Active Problems Problem Classification Problem [...] 02-14-2022 Episodic Other aftercare (1 source) 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; Translations: [OTH [facility] CURRENT DRUG THERAPY] Onset: 06-14-2022 Episodic Other non-traumatic joint disorders (4 sources) Pain in left shoulder; Translations: [PAIN IN LEFT SHOULDER] Onset: 06-13-2022 Episodic Results Test Name Value Interpretation Reference Range Facility GLYCOHEMOGLOBIN A1Con 2022 ADA RECOMMENDATION SEE BELOW Normal [facility] [place] Comment on above: Result Comment: ADA RECOMMENDED LIMIT 4.0 - 6.0 ADA THERAPEUTIC TARGET < 7.0 ACTION SUGGESTED > 7.0 Performed By: #### D ATA1C #### [facility] [address] [address] [address] Ayleen Navarro Glucose [Mass/Vol] 192 mg/dL Normal [facility] [place] Comment on above: Performed By: #### D ATA1C #### [facility] [address] [address] [address] Ayleen Navarro HbA1c (Bld) [Mass fraction] 8.3 % Critically high 4.5-6.2 [facility] Comment on above: Performed By: #### D ATA1C #### [facility] [address] [address] [address] Ayleen Navarro GLYCOHEMOGLOBIN A1Con 2021 ADA RECOMMENDATION SEE BELOW Normal [facility] [place] Comment on above: Result Comment: ADA RECOMMENDED LIMIT 4.0 - 6.0 ADA THERAPEUTIC TARGET < 7.0 ACTION SUGGESTED > 7.0 Performed By: #### D ATA1C ####[facility] [address] [address]Dr. Ayleen Navarro Glucose [Mass/Vol] 180 mg/dL Normal [facility] [place] Comment on above: Performed By: #### D ATA1C ####[facility] [address] [address]Dr. Ayleen Navarro HbA1c (Bld) [Mass fraction] 7.9 % Critically high 4.5-6.2 [facility] Comment on above: Performed By: #### D ATA1C ####[facility] [address] [address]Dr. Ayleen Navarro CBC AUTO DIFFon 06-13-2022 BASO # 0.1 103/ul Normal 0.0-0.1 [facility] Comment on above: Performed By: #### C BC #### [facility] [address] [address] [address] Ayleen Navarro Basophils/100 WBC (Bld) 0.7 % Normal 0.2-2.0 [facility] Comment on above: Performed By: #### C BC #### [facility] [address] [address] [address] Ayleen Navarro EO # 0.2 103/ul Normal 0.0-0.7 [facility] Comment on above: Performed By: #### C BC #### [facility] [address] [address] [address] Ayleen Navarro Eosinophils/100 WBC (Bld) 2.1 % Normal 0.9-7.0 [facility] Comment on above: Performed By: #### C BC #### [facility] [address] [place] [address] Dr. Ayleen Navarro Erythrocyte distribution width (RBC) [Ratio] 12.6 % Normal 11.0-15.0 [facility] Comment on above: Performed By: #### C BC #### [facility] [address] [address] [address] Ayleen Navarro Hematocrit (Bld) [Volume fraction] 42.8 % Normal 36.0-48.0 [facility] Comment on above: Performed By: #### C BC #### [facility] [address] [address] [address] Ayleen Navarro Hemoglobin (Bld) [Mass/Vol] 14.3 g/dL Normal 12.0-16.0 [facility] Comment on above: Performed By: #### C BC #### [facility] [address] [address] [address] Ayleen Navarro IG # 0.05 10e3/ul Critically high 0.00-0.03 [facility] Comment on above: Performed By: #### C BC #### [facility] [address] [address] [address] Ayleen Navarro IG % 0.5 % Normal 0.0-0.5 [facility] Comment on above: Performed By: #### C BC #### [facility] [address] [place] [address] Dr. Ayleen Navarro LYMPH # 3.4 103/ul Normal 1.2-3.8 [facility] Comment on above: Performed By: #### C BC #### [facility] [address] [place] [address] Dr. Ayleen Navarro Lymphocytes/100 WBC (Bld) 31.5 % Normal 20.5-60.0 [facility] Comment on above: Performed By: #### C BC #### [facility] [address] [place] [address] Dr. Ayleen Navarro MANUAL DIFF REQ NO Normal [facility] Comment on above: Performed By: #### C BC #### [facility] [address] [place] [address] Dr. Ayleen Navarro MCH (RBC) [Entitic mass] 29.3 pg Normal 26.7-34.0 [facility] Comment on above: Performed By: #### C BC #### [facility] [address] [place] [address] Dr. Ayleen Navarro MCHC (RBC) [Mass/Vol] 33.4 g/dL Normal 29.9-35.2 [facility] Comment on above: Performed By: #### C BC #### [facility] [address] [place] [address] Dr. Ayleen Navarro MCV (RBC) [Entitic vol] 87.7 fL Normal 81.0-99.0 [facility] Comment on above: Performed By: #### C BC #### [facility] [address] [place] [address] Dr. Ayleen Navarro MONO # 0.6 103/ul Normal 0.3-0.8 [facility] Comment on above: Performed By: #### C BC #### [facility] [address] [place] [address] Dr. Ayleen Navarro Monocytes/100 WBC (Bld) 5.5 % Normal 1.7-12.0 [facility] Comment on above: Performed By: #### C BC #### [facility] [address] [place] [address] Dr. Ayleen Navarro NEUT # 6.4 103/ul Normal 1.4-6.5 [facility] Comment on above: Performed By: #### C BC #### [facility] [address] [place] [address] Dr. Ayleen Navarro Neutrophils/100 WBC (Bld) 59.7 % Normal 43.0-75.0 [facility] Comment on above: Performed By: #### C BC #### [facility] [address] [place] [address] Dr. Ayleen Navarro Platelet mean volume (Bld) [Entitic vol] 10.9 fL Normal 9.5-13.5 [facility] Comment on above: Performed By: #### C BC #### [facility] [address] [place] [address] Dr. Ayleen Navarro PLT 229 103/ul Normal 150-450 [facility] Comment on above: Performed By: #### C BC #### [facility] [address] [place] [address] Dr. Ayleen Navarro RBC 4.88 106/ul Normal 4.20-5.40 [facility] Comment on above: Performed By: #### C BC #### [facility] [address] [place] [address] Dr. Ayleen Navarro WBC 10.7 103/ul Normal 4.0-11.0 [facility] Comment on above: Performed By: #### C BC #### [facility] [address] [place] [address] Dr. Ayleen Navarro PROF 14(COMP METB)on 022 Albumin [Mass/Vol] 3.2 g/dL Critically low 3.4-5.0 [facility] Comment on above: Performed By: #### H BENI, CMP #### [facility] [address] [place] [address] Dr. Ayleen Navarro Albumin/Globulin [Mass ratio] 0.8 {ratio} Normal [facility] Comment on above: Performed By: #### H BENI, CMP #### [facility] [address] [address] [address] Ayleen Navarro ALP [Catalytic activity/Vol] 76 U/L Normal 46-116 [facility] Comment on above: Performed By: #### H STROPN, CMP #### [facility] [address] [address] [address] Ayleen Navarro ALT [Catalytic activity/Vol] 24 U/L Normal 14-59 [facility] Comment on above: Performed By: #### H STROPN, CMP #### [facility] [address] [address] [address] Ayleen Navarro Anion gap [Moles/Vol] 8.5 mmol/L Normal [facility] Comment on above: Performed By: #### H STROPN, CMP #### [facility] [address] [address] [address] Ayleen Navarro AST [Catalytic activity/Vol] 4 U/L Critically low 15-37 [facility] Comment on above: Performed By: #### H STROPN, CMP #### [facility] [address] [address] [address] Ayleen Navarro Bilirubin [Mass/Vol] 0.2 mg/dL Normal 0.2-1.0 [facility] Comment on above: Performed By: #### H STROPN, CMP #### [facility] [address] [address] [address] Ayleen Navarro Calcium [Mass/Vol] 8.8 mg/dL Normal 8.5-10.1 [facility] Comment on above: Performed By: #### H STROPN, CMP #### [facility] [address] [address] [address] Ayleen Navarro Chloride [Moles/Vol] 99 mmol/L Normal 98-107 [facility] Comment on above: Performed By: #### H STROPN, CMP #### [facility] [address] [address] [address] Ayleen Navarro CO2 [Moles/Vol] 29.9 mmol/L Normal 21.0-32.0 [facility] Comment on above: Performed By: #### H STROPN, CMP #### [facility] [address] [address] [address] Ayleen Navarro Creatinine [Mass/Vol] 0.88 mg/dL Normal 0.55-1.02 [facility] Comment on above: Performed By: #### H STROPN, CMP #### [facility] [address] [address] [address] Ayleen Navarro EGFR-AF FINNISH >60 Normal >=60 [facility] Comment on above: Performed By: #### H STROPN, CMP #### [facility] [address] [address] [address] Ayleen Navarro EGFR-NON AF FINNISH >60 Normal >=60 [facility] Comment on above: Performed By: #### H STROPN, CMP #### [facility] [address] [address] [address] Ayleen Navarro Globulin (S) [Mass/Vol] 3.9 g/dL Normal [facility] Comment on above: Performed By: #### H STROPN, CMP #### [facility] [address] [address] [address] Ayleen Navarro Glucose [Mass/Vol] 245 mg/dL Critically high 74-106 [facility] Comment on above: Performed By: #### H STROPN, CMP #### [facility] [address] [address] [address] Ayleen Navarro Potassium [Moles/Vol] 3.4 mmol/L Critically low 3.5-5.1 [facility] Comment on above: Performed By: #### H STROPN, CMP #### [facility] [address] [address] [address] Ayleen Navarro Protein [Mass/Vol] 7.1 g/dL Normal 6.4-8.2 [facility] Comment on above: Performed By: #### H STROPN, CMP #### [facility] [address] [address] [address] Ayleen Navarro Sodium [Moles/Vol] 134 mmol/L Critically low 136-145 [facility] Comment on above: Performed By: #### H STROPN, CMP #### [facility] [address] [place], [place] [address] Dr. Ayleen Navarro Urea nitrogen [Mass/Vol] 18.0 mg/dL Normal 7.0-18.0 [facility] Comment on above: Performed By: #### H STROPN, CMP #### [facility] [address] [place], [place] [address] Dr. Ayleen Navarro Urea nitrogen/Creatinine [Mass ratio] 20.5 mg/mg Normal [facility] Comment on above: Performed By: #### H STROPN, CMP #### [facility] [address] [place], [place] [address] Dr. Ayleen Navarro TROPONIN, HIGH SENSITIVITYon 06-13-2022 HSTROP 8.6 pg/mL Normal 4.0-51.3 [facility] Comment on above: Result Comment: CUT- OFF POINTS HAVE BEEN ESTABLISHED BASED ON THE FOURTH UNIVERSAL DEFINITIONS OF MYOCARDIAL INFARCTION. THE UPPER REFERENCE LIMIT (URL) OF TROPONIN, DEFINED THE 99TH PERCENTILE OF cTnI DISTRIBUTION IN A REFERENCE POPULATION, HAS BEEN CONFIRMED THE DECISION THRESHOLD FOR HI DIAGNOSIS. Performed By: #### H STROPN ####[facility] [address] [place], [place] [address]UxDr. Ayleen Navarro HSTROP <4.0 Normal 4.0-51.3 [facility] Comment on above: Result Comment: CUT- OFF POINTS HAVE BEEN ESTABLISHED BASED ON THE FOURTH UNIVERSAL DEFINITIONS OF MYOCARDIAL INFARCTION. THE UPPER REFERENCE LIMIT (URL) OF TROPONIN, DEFINED THE 99TH PERCENTILE OF cTnI DISTRIBUTION IN A REFERENCE POPULATION, HAS BEEN CONFIRMED THE DECISION THRESHOLD FOR HI DIAGNOSIS. Performed By: #### H STROPN, CMP #### [facility] [address] [place], [place] [address] Dr. Ayleen Navarro XR CHEST 1 Von [...] Radha GONZALEZ Date: 2022-06-13 04:44 Normal [facility] INSULINon 02-23-2022 Insulin 22.9 uIU/mL Normal 2.6-24.9 [facility] Comment on above: Performed By: #### I NSULIN #### [facility] [address] [address] [address] Ayleen Navarro CBC AUTO DIFFon 02-22-2022 BASO # 0.1 103/ul Normal 0.0-0.1 [facility] Comment on above: Performed By: #### C BC ####[facility] [address] [address]Dr. Ayleen Navarro Basophils/100 WBC (Bld) 0.9 % Normal 0.2-2.0 [facility] Comment on above: Performed By: #### C BC ####[facility] [address] [address]Dr. Ayleen Navarro EO # 0.2 103/ul Normal 0.0-0.7 [facility] Comment on above: Performed By: #### C BC ####[facility] [address] [address]Dr. Ayleen Navarro Eosinophils/100 WBC (Bld) 2.6 % Normal 0.9-7.0 [facility] Comment on above: Performed By: #### C BC ####[facility] [address] [address]Dr. Ayleen Navarro Erythrocyte distribution width (RBC) [Ratio] 13.3 % Normal 11.0-15.0 [facility] Comment on above: Performed By: #### C BC ####[facility] [address] [address]Dr. Ayleen Navarro Hematocrit (Bld) [Volume fraction] 42.8 % Normal 36.0-48.0 [facility] Comment on above: Performed By: #### C BC ####[facility] [address] [address]Dr. Ayleen Navarro Hemoglobin (Bld) [Mass/Vol] 14.3 g/dL Normal 12.0-16.0 [facility] Comment on above: Performed By: #### C BC ####[facility] [address] [address]DrMiky Navarro IG # 0.05 10e3/ul Critically high 0.00-0.03 [facility] Comment on above: Performed By: #### C BC ####[facility] [address] [address]DrMiky Navarro IG % 0.5 % Normal 0.0-0.5 [facility] Comment on above: Performed By: #### C BC ####[facility] [address] [place], [place] [address]DrMiky Navarro LYMPH # 3.0 103/ul Normal 1.2-3.8 [facility] Comment on above: Performed By: #### C BC ####[facility] [address] [place], [place] [address]DrMiky Navarro Lymphocytes/100 WBC (Bld) 32.4 % Normal 20.5-60.0 [facility] Comment on above: Performed By: #### C BC ####[facility] [address] [place], [place] [address]DrMiky Navarro MANUAL DIFF REQ NO Normal [facility] Comment on above: Performed By: #### C BC ####[facility] [address] [place], [place] [address]DrMiky Navarro MCH (RBC) [Entitic mass] 29.5 pg Normal 26.7-34.0 [facility] Comment on above: Performed By: #### C BC ####[facility] [address] [place], [place] [address]DrMiky Navarro MCHC (RBC) [Mass/Vol] 33.4 g/dL Normal 29.9-35.2 [facility] Comment on above: Performed By: #### C BC ####[facility] [address] [place], [place] [address]DrMiky Navarro MCV (RBC) [Entitic vol] 88.2 fL Normal 81.0-99.0 [facility] Comment on above: Performed By: #### C BC ####[facility] [address] [place], [place] [address]Dr. Ayleen Navarro MONO # 0.6 103/ul Normal 0.3-0.8 [facility] Comment on above: Performed By: #### C BC ####[facility] [address] [place], [place] [address]Dr. Ayleen Ramon Monocytes/100 WBC (Bld) 6.7 % Normal 1.7-12.0 [facility] Comment on above: Performed By: #### C BC ####[facility] [address] [place], [place] [address]Dr. Ayleen Navarro NEUT # 5.3 103/ul Normal 1.4-6.5 [facility] Comment on above: Performed By: #### C BC ####[facility] [address] [place], [place] [address]Dr. Ayleen Ramon Neutrophils/100 WBC (Bld) 56.9 % Normal 43.0-75.0 [facility] Comment on above: Performed By: #### C BC ####[facility] [address] [place], [place] [address]Dr. Ayleen Navarro Platelet mean volume (Bld) [Entitic vol] 11.0 fL Normal 9.5-13.5 [facility] Comment on above: Performed By: #### C BC ####[facility] [address] [place], [place] [address]Dr. Ayleen Ramon PLT 239 103/ul Normal 150-450 [facility] Comment on above: Performed By: #### C BC ####[facility] [address] [place], [place] [address]Dr. Ayleen Ramon RBC 4.85 106/ul Normal 4.20-5.40 [facility] Comment on above: Performed By: #### C BC ####[facility] [address] [place], [place] [address]Dr. Ayleen Navarro WBC 9.3 103/ul Normal 4.0-11.0 [facility] Comment on above: Performed By: #### C BC ####[facility] [address] [address]Dr. Ayleen Navarro FREE THYROXINE INDEX T7on FTI 3.36 Normal 1.30-4.50 [facility] Comment on above: Performed By: #### L IPID, CMP, T7, TSH #### [facility] [address] [address] [address] Ayleen Navarro T3U 32.0 % Normal 30.0-39.0 [facility] Comment on above: Performed By: #### L IPID, CMP, T7, TSH #### [facility] [address] [address] [address] Ayleen Navarro T4 [Mass/Vol] 10.50 ug/dL Normal 4.80-13.90 [facility] Comment on above: Performed By: #### L IPID, CMP, T7, TSH #### [facility] [address] [address] [address] Ayleen Navarro IRONon 02-22-2022 Iron [Mass/Vol] 117.0 ug/dL Normal 50.0-170.0 [facility] Comment on above: Performed By: #### I FEDERICO ####[facility] [address] [address]Dr. Ayleen Navarro LIPID PROFILEon 02-22-2022 CHOL-HDL RATIO NORM SEE BELOW Normal [facility] Comment on above: Result Comment: 3.3 - 4.4 LOW RISK 4.4 - 7.1 AVERAGE RISK 7.1 - 11.0 MODERATE RISK >11.0 HIGH RISK Performed By: #### L IPID, CMP, T7, TSH #### [facility] [address] [address] [address] Ayleen Navarro Cholesterol [Mass/Vol] 161 mg/dL Normal <=200 [facility] Comment on above: Performed By: #### L IPID, CMP, T7, TSH #### [facility] [address] [address] [address] Ayleen Navarro Cholesterol in HDL [Mass/Vol] 42 mg/dL Normal 40-60 [facility] Comment on above: Performed By: #### L IPID, CMP, T7, TSH #### [facility] [address] [address] [address] Ayleen Navarro Cholesterol in LDL [Mass/Vol] 98.4 mg/dL Normal [facility] Comment on above: Performed By: #### L IPID, CMP, T7, TSH #### [facility] [address] [address] [address] Ayleen Navarro Cholesterol.total/Cho lesterol in HDL [Mass ratio] 3.8 {ratio} Normal [facility] Comment on above: Performed By: #### L IPID, CMP, T7, TSH #### [facility] [address] [address] [address] Ayleen Navarro HDL NORMAL > or = 60 mg/dl - LO W CARDIOVASCULAR RISK <40 mg/dl - HIGH CARDIOVASCULAR RISK Normal [facility] Comment on above: Performed By: #### L IPID, CMP, T7, TSH #### [facility] [address] [address] [address] Ayleen Navarro LDL CALC NORMAL SEE BELOW Normal [facility] Comment on above: Result Comment: <100 mg/dl OPTIMAL 100 - 129 mg/dl NEAR OR ABOVE OPTIMAL 130 - 159 mg/dl BORDERLINE HIGH 160 - 189 mg/dl HIGH >190 mg/dl VERY HIGH Performed By: #### L IPID, CMP, T7, TSH #### [facility] [address] [address] [address] Ayleen Navarro Triglyceride [Mass/Vol] 103 mg/dL Normal <=150 [facility] Comment on above: Performed By: #### L IPID, CMP, T7, TSH #### [facility] [address] [address] [address] Ayleen Navarro VLDL CALC 20.6 mg/dL Normal [facility] Comment on above: Performed By: #### L IPID, CMP, T7, TSH #### [facility] [address] [address] [address] Ayleen Navarro PROF 14(COMP METB)on 022 Albumin [Mass/Vol] 3.4 g/dL Normal 3.4-5.0 [facility] Comment on above: Performed By: #### L IPID, CMP, T7, TSH #### [facility] [address] [address] [address] Ayleen Navarro Albumin/Globulin [Mass ratio] 0.9 {ratio} Normal [facility] Comment on above: Performed By: #### L IPID, CMP, T7, TSH #### [facility] [address] [place] [address] Dr. Ayleen Navarro ALP [Catalytic activity/Vol] 71 U/L Normal 46-116 [facility] Comment on above: Performed By: #### L IPID, CMP, T7, TSH #### [facility] [address] [place] [address] Dr. Ayleen Navarro ALT [Catalytic activity/Vol] 25 U/L Normal 14-59 [facility] Comment on above: Performed By: #### L IPID, CMP, T7, TSH #### [facility] [address] [address] [address] Ayleen Navarro Anion gap [Moles/Vol] 10.1 mmol/L Normal [facility] Comment on above: Performed By: #### L IPID, CMP, T7, TSH #### [facility] [address] [place] [address] Dr. Ayleen Navarro AST [Catalytic activity/Vol] 11 U/L Critically low 15-37 [facility] Comment on above: Performed By: #### L IPID, CMP, T7, TSH #### [facility] [address] [place] [address] Dr. Ayleen Navarro Bilirubin [Mass/Vol] 0.5 mg/dL Normal 0.2-1.0 [facility] [place] Comment on above: Performed By: #### L IPID, CMP, T7, TSH #### [facility] [address] [place] [address] Dr. Ayleen Navarro Calcium [Mass/Vol] 8.8 mg/dL Normal 8.5-10.1 [facility] Comment on above: Performed By: #### L IPID, CMP, T7, TSH #### [facility] [address] [address] [address] Ayleen Navarro Chloride [Moles/Vol] 100 mmol/L Normal 98-107 [facility] [place] Comment on above: Performed By: #### L IPID, CMP, T7, TSH #### [facility] [address] [address] [address] Ayleen Navarro CO2 [Moles/Vol] 29.5 mmol/L Normal 21.0-32.0 [facility] Comment on above: Performed By: #### L IPID, CMP, T7, TSH #### [facility] [address] [place] [address] Dr. Ayleen Navarro Creatinine [Mass/Vol] 0.61 mg/dL Normal 0.55-1.02 [facility] [place] Comment on above: Performed By: #### L IPID, CMP, T7, TSH #### [facility] [address] [address] [address] Ayleen Navarro EGFR-AF FINNISH >60 Normal >=60 [facility] Comment on above: Performed By: #### L IPID, CMP, T7, TSH #### [facility] [address] [place] [address] Dr. Ayleen Navarro EGFR-NON AF FINNISH >60 Normal >=60 [facility] [place] Comment on above: Performed By: #### L IPID, CMP, T7, TSH #### [facility] [address] [address] [address] Ayleen Navarro Globulin (S) [Mass/Vol] 3.9 g/dL Normal [facility] [place] Comment on above: Performed By: #### L IPID, CMP, T7, TSH #### [facility] [address] [place] [address] Dr. Ayleen Navarro Glucose [Mass/Vol] 119 mg/dL Critically high 74-106 [facility] Comment on above: Performed By: #### L IPID, CMP, T7, TSH #### [facility] [address] [place] [address] Dr. Ayleen Navarro Potassium [Moles/Vol] 3.6 mmol/L Normal 3.5-5.1 [facility] Comment on above: Performed By: #### L IPID, CMP, T7, TSH #### [facility] [address] [address] [address] Ayleen Navarro Protein [Mass/Vol] 7.3 g/dL Normal 6.4-8.2 [facility] Comment on above: Performed By: #### L IPID, CMP, T7, TSH #### [facility] [address] [address] [address] Ayleen Navarro Sodium [Moles/Vol] 136 mmol/L Normal 136-145 [facility] Comment on above: Performed By: #### L IPID, CMP, T7, TSH #### [facility] [address] [address] [address] Ayleen Navarro Urea nitrogen [Mass/Vol] 19.0 mg/dL Critically high 7.0-18.0 [facility] Comment on above: Performed By: #### L IPID, CMP, T7, TSH #### [facility] [address] [address] [address] Ayleen Navarro Urea nitrogen/Creatinine [Mass ratio] 31.1 mg/mg Normal [facility] Comment on above: Performed By: #### L IPID, CMP, T7, TSH #### [facility] [address] [address] [address] Ayleen Navarro TSHon 02-22-2022 TSH 0.964 uIU/mL Normal 0.358-3.740 [facility] Comment on above: Performed By: #### L IPID, CMP, T7, TSH #### [facility] [address] [address] [address] Ayleen Navarro GLYCOHEMOGLOBIN A1Con 2021 ADA RECOMMENDATION SEE BELOW Normal [facility] Comment on above: Result Comment: ADA RECOMMENDED LIMIT 4.0 - 6.0 ADA THERAPEUTIC TARGET < 7.0 ACTION SUGGESTED > 7.0 Performed By: #### A 1C ####[facility] [id number] [place], [place] [address]Yh. Ayleen Navarro Glucose [Mass/Vol] 140 mg/dL Normal [facility] Comment on above: Performed By: #### A 1C ####[facility] [id number] [place], [place] [address]Gi. Ayleen Navarro HbA1c (Bld) [Mass fraction] 6.5 % Critically high 4.5-6.2 [facility] Comment on above: Performed By: #### A 1C ####[facility] [id number] [place], [place] [address]Bl. Ayleen Navarro Encounters Encounter Date Encounter Type Care Provider Facility Start: 11-23-2022 Encounter for genera l adult medical examination without abnormal findings NEGIN HARDWICK [facility] Start: 11-19-2022 End: 11-20-2022 ambulatory NEGIN HARDWICK [...] Facility:[facility] Payers Date Payer Category Payer Unknown [id number] 10.17.83 [id number] 1970 Unknown [id number] 1970 Unknown [id number] 1960 Self-pay 1960 Unknown [id number] 1960 Unknown Unknown [id number] Unknown [id number] 10.17.84 [id number] Summary Purpose Family History No Family History [...] BE BASED ON THE PRIMARY CLINICAL RECORDS. [facility]. provides no warranty or guarantee of the accuracy or completeness of information in this document.
--- NOTE | 2024-06-19 05:37 | ED_ITS ---
HPI HPI - General Adult General Stated complaint: FALL Time Seen by Provider: 06/19/24 05:36 History of Present Illness HPI narrative: 53-year-old male presents to the emergency department because she states she passed out and fell and hit her mouth. She was at her computer desk at home and she got up to go somewhere and she states she passed out. She has been having problems with dizziness and this is being worked up by her physician. She complains of some neck pain as well and sustained a laceration to her upper lip. No injury to her chest abdomen or extremities. This happened just before coming into the emergency department. Last tetanus shot is more than 10 years ago. Related Data Home Medications ?Medication ?Instructions ?Recorded ?Confirmed atorvastatin 10 mg tablet 10 mg PO DAILY 02/20/23 04/27/24 chlorthalidone 25 mg tablet 25 mg PO DAILY 02/20/23 04/27/24 glipizide 10 mg tablet 10 mg PO BID 02/20/23 04/27/24 lisinopril 10 mg tablet 10 mg PO DAILY 02/20/23 04/27/24 pantoprazole 40 mg tablet,delayed 40 mg PO DAILY 02/20/23 04/27/24 release Previous Rx's ?Medication ?Instructions ?Recorded ibuprofen 600 mg tablet 600 mg PO Q8H PRN pain #20 tabs 04/27/24 lidocaine 5 % topical patch 1 patch topical DAILY #15 ea 04/27/24 (Lidoderm) oxycodone-acetaminophen 5 mg-325 1 tab PO Q8H 3 days #9 tabs 04/27/24 mg tablet (Percocet) tizanidine 4 mg capsule 4 mg PO BID PRN muscle spasticity 04/27/24 #14 caps oxycodone-acetaminophen 5 mg-325 1 tab PO Q6H PRN pain 3 days #12 05/30/24 mg tablet (Percocet) tabs hydrocodone 5 mg-acetaminophen 325 1 tab PO Q6H PRN pain 5 days #20 06/19/24 mg tablet tabs penicillin V potassium 250 mg 250 mg PO QID 10 days #40 tabs 06/19/24 tablet Allergies Allergy/AdvReac Type Severity Reaction Status Date / Time prednisone AdvReac Vomiting Verified 05/30/24 05:46 Opioid HPI Opioid Management Most Recent Opioid Data: Last Pain Scale 8 06/19/24 06:02 06/19/24 Last MAR Pain Assessment 06/19/24 06:02 Review of Systems ROS Narrative A ten point review of systems is negative except as noted above. 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 General: The patient appears in no apparent distress. Skin: Warm, dry, no pallor noted. There is no rash noted. Head: Normocephalic, there is dried blood on her face Eye: Normal conjunctiva, no drainage Ears, Nose, Mouth, and Throat: oral mucosa is moist. Nares patent. There is a 1.5 cm laceration on the upper lip near the midline. It does not cross the vermilion border. No tooth is cracked or chipped or loose and there are no intraoral lacerations or other lacerations on her face. Cardiovascular: Regular Rate and Rhythm Respiratory: Patient is in no distress, no accessory muscle use, lungs are clear to auscultation, no wheezing, rales or rhonchi Back: non-tender GI: Soft and nontender Musculoskeletal: All joints have full range of motion Neurological: A&O, normal speech Psychiatric: Cooperative Medical Decision Making MDM Narrative Medical decision making narrative: The following procedure was performed by me. Local infiltration was carried out with 1% lidocaine without epinephrine to the laceration at the upper lip. The wound was explored for foreign bodies number found and then closed with three 5- 0 chromic sutures resulting in good reapproximation and complete hemostasis. No complications. Her CT brain and C-spine are negative. Maxillary fracture is identified on the facial bone CT and she is being referred to ENT for follow-up and was placed on penicillin. The laceration on her lip has been closed with absorbable sutures. Treatment diagnosis and follow-up were discussed with the patient. Differential Diagnosis Differential Diagnosis: Laceration, intracranial hemorrhage, C-spine fracture, facial fracture Lab Data Lab results reviewed: Yes I reviewed the patient's lab results Lab results narrative: CBC, BMP normal Labs: Lab Results 06/19/24 Range/Units 04:27 WBC 11.9 H (4.0-11.0) 10^3/uL RBC 5.14 (4.20-5.40) 10^6/uL Hgb 15.3 (12.0-16.0) g/dL Hct 45.7 (36.0-48.0) % MCV 88.9 (81.0-99.0) fL MCH 29.8 (26.7-34.0) pg MCHC 33.5 (29.9-35.2) g/dL RDW 12.9 (11.0-15.0) % Plt Count 233 (150-450) 10^3/uL MPV 10.3 (9.5-13.5) fL Neut % (Auto) 61.9 (43.0-75.0) % Lymph % (Auto) 29.4 (20.5-60.0) % Leslie % (Auto) 5.7 (1.7-12.0) % Eos % (Auto) 1.8 (0.9-7.0) % Baso % (Auto) 0.7 (0.2-2.0) % Neut # (Auto) 7.4 H (1.4-6.5) 10^3/uL Lymph # (Auto) 3.5 (1.2-3.8) 10^3/uL Leslie # (Auto) 0.7 (0.3-0.8) 10^3/uL Eos # (Auto) 0.2 (0.0-0.7) 10^3/uL Baso # (Auto) 0.1 (0.0-0.1) 10^3/uL Abs Immat Gran (auto) 0.06 H (0.00-0.03) 10^3/uL Imm/Tot Granulo (auto) 0.5 (0.0-0.5) % Sodium 136 (136-145) mmol/L Potassium 3.2 L (3.5-5.1) mmol/L Chloride 98 (98-107) mmol/L Carbon Dioxide 26.5 (21.0-32.0) mmol/L Anion Gap 14.7 BUN 17.0 (7.0-18.0) mg/dL Creatinine 0.88 (0.55-1.02) mg/dL Est GFR ( Amer) >60 (>=60 mL/min/1.73m^2) Est GFR (Non-Af Amer) >60 (>=60 mL/min/1.73m^2) BUN/Creatinine Ratio 19.3 Glucose 119 H (74-106) mg/dL Calcium 9.3 (8.5-10.1) mg/dL Imaging Data CT scan - head: Radiologist's impression: ITS Impressions Facial Bones CT 06/19/24 05:00 IMPRESSION: Fracture involving the alveolar process of the maxilla anteriorly and in the midline. This fracture is noted in proximity to the roots of teeth 8 and 9. Electronically authenticated by: CRIS SINHA Date: 06/19/2024 06:[address] 06/19/24 05:00 IMPRESSION: No CT evidence of an acute intracranial process or acute calvarial fracture. Electronically authenticated by: CRIS SINHA Date: 06/19/2024 06:30 ECG Data Attestation: I personally reviewed and interpreted this ECG as follows: (EKG on my interpretation shows normal sinus rhythm with a rate of 60 and no acute change.) Discharge Plan Discharge Clinical Impression: Laceration of lip, Syncope, Maxillary fracture Patient Disposition: Home, Self-Care Time of Disposition Decision: 06:43 Condition: Good Mode of Transportation: Private Vehicle Prescriptions / Home Meds: New penicillin V potassium 250 mg tablet 250 mg PO QID 10 Days Qty: 40 0RF hydrocodone-acetaminophen 5-325 mg tablet 1 tab PO Q6H PRN (Reason: pain) 5 Days Qty: 20 0RF No Action oxycodone-acetaminophen [Percocet] 5-325 mg tablet 1 tab PO Q8H 3 Days Qty: 9 0RF tizanidine 4 mg capsule 4 mg PO BID PRN (Reason: muscle spasticity) Qty: 14 0RF ibuprofen 600 mg tablet 600 mg PO Q8H PRN (Reason: pain) Qty: 20 0RF lidocaine [Lidoderm] 5 % adhesive patch,medicated 1 patch topical DAILY Qty: 15 0RF Rx Instructions: leave on most painful area for up to 12 hrs oxycodone-acetaminophen [Percocet] 5-325 mg tablet 1 tab PO Q6H PRN (Reason: pain) 3 Days Qty: 12 0RF atorvastatin 10 mg tablet 10 mg PO DAILY chlorthalidone 25 mg tablet 25 mg PO DAILY glipizide 10 mg tablet 10 mg PO BID lisinopril 10 mg tablet 10 mg PO DAILY pantoprazole 40 mg tablet,delayed release (DR/EC) 40 mg PO DAILY Print Language: Burmese Instructions: Syncope (ED), Facial Laceration (ED) Referrals: NEGIN HARDWICK [Primary Care Provider] - 1 week Vaishali Rodriguez MD [Physician] - 1 week
[2024-06-19 05:50] LABS: Anion Gap 14.7; BUN Creatinine Ratio 19.3; Calcium 9.3 mg/dL (8.5-10.1); Carbon Dioxide 26.5 mmol/L (21.0-32.0); Chloride 98 mmol/L (98-107); Estimated GFR (African America >60 (>=60 mL/min/1.73m^2); Estimated GFR (Non-African Ame >60 (>=60 mL/min/1.73m^2); Glucose 119 mg/dL (74-106); Potassium 3.2 mmol/L (3.5-5.1); Sodium 136 mmol/L (136-145); White Blood Count 11.9 10^3/uL (4.0-11.0)
[2024-06-19 05:51] LABS: Basophils Percent Auto 0.7 % (0.2-2.0); Eosinophils Percent Auto 1.8 % (0.9-7.0); Hematocrit 45.7 % (36.0-48.0); Hemoglobin 15.3 g/dL (12.0-16.0); Immature Granulocytes Pct Auto 0.5 % (0.0-0.5); Lymphocytes Percent Auto 29.4 % (20.5-60.0); Mean Corpuscular HGB Conc 33.5 g/dL (29.9-35.2); Mean Corpuscular Hemoglobin 29.8 pg (26.7-34.0); Mean Corpuscular Volume 88.9 fL (81.0-99.0); Mean Platelet Volume 10.3 fL (9.5-13.5); Monocytes Percent Auto 5.7 % (1.7-12.0); Neutrophils Percent Auto 61.9 % (43.0-75.0); Platelet Count 233 10^3/uL (150-450); Red Blood Count 5.14 10^6/uL (4.20-5.40); Red Cell Distribution Width 12.9 % (11.0-15.0)
[2024-06-19 05:52] LABS: Basophils Absolute Auto 0.1 10^3/uL (0.0-0.1); Eosinophils Absolute Auto 0.2 10^3/uL (0.0-0.7); Immature Granulocytes Abs Auto 0.06 10^3/uL (0.00-0.03); Lymphocytes Absolute Auto 3.5 10^3/uL (1.2-3.8); Monocytes Absolute Auto 0.7 10^3/uL (0.3-0.8); Neutrophils Absolute Auto 7.4 10^3/uL (1.4-6.5)
[2024-06-19] MEDS: IBUPROFEN 400 MG TABLET 800 MG PO (06:02)
== END 2024-06-19 07:08 | disposition home or self-care (01) ==
PROVIDERS: Emergency Provider Emergency Medicine; PCP Nurse Practitioner Family
DX: S01.511A Laceration without foreign body of lip, initial encounter (principal); R55 Syncope and collapse; S02.42XA Fracture of alveolus of maxilla, initial encounter for closed fracture; W22.8XXA Striking against or struck by other objects, initial encounter; F17.200 Nicotine dependence, unspecified, uncomplicated
CPT/HCPCS: 12011; 36415; 70450; 70486; 72125; 80048; 85025; 99285

== ENCOUNTER 2024-06-21 07:40 | Outpatient (OUT) | payer BC, SELFPAY ==
--- NOTE | 2024-06-21 07:43 | MR_ITS ---
[address] [address] Patient Name: KEVIN CUNHA MRN: [id number] date: 1970 Sex: F Assigned Patient Location: MRI Current Patient Location: MRI Accession/Order Number: [id number] Exam Date: 06/21/2024 07:58 Report Date: 06/22/2024 11:07 At the request of: GRIFFIN STEPHEN Procedure: MR lumbar spine wo con EXAM: MR lumbar spine wo con COMPARISON: Lumbar spine CT from 04/27/2024. HISTORY: Low back pain after a fall. Left leg pain. TECHNIQUE: Multiplanar and multisequence imaging of the lumbar spine was performed without contrast FINDINGS: There is mild motion artifact. No acute fracture or spondylolisthesis is evident. The lumbar vertebral body heights are maintained. There is marked endplate spurring anteriorly at L3-L4 with Modic type I edematous degenerative endplate change anteriorly at L3-L4. Severe degenerative disc disease is present at L5-S1 with marked disc height loss and endplate spurring along with mild Modic type I edematous degenerative endplate change. No acute abnormality is identified involving visualized intrapelvic or intra-abdominal structures. The visualized aorta is normal in diameter. The upper sacrum is intact. There are no pars defects. The conus terminates at the inferior aspect of L1. L5-S1: There is severe degenerative disc disease with a 5 mm broad-based disc-osteophyte complex and moderate associated facet arthropathy. There is moderate bilateral foraminal narrowing without central stenosis. Moderate lateral recess narrowing is present bilaterally. L4-L5: There is moderate facet arthropathy and a minimal disc bulge without central or foraminal stenosis. L3-L4: There is a small left subarticular disc protrusion and mild to moderate facet arthropathy. There is no central or foraminal stenosis. L2-L3: There is a small left subarticular disc protrusion and mild to moderate facet arthropathy. There is no central or foraminal stenosis. L1-L2: There is a mild disc bulge without central or foraminal stenosis. MR/MR lumbar spine wo con IMPRESSION: 1. There is severe degenerative disc disease at L5-S1 with a broad-based disc-osteophyte complex and moderate facet arthropathy resulting in moderate bilateral foraminal narrowing without central stenosis. 2. No central stenosis at any level. 3. No acute fracture. Electronically authenticated by: JENNIFER WALLIS Date: 06/22/2024 11:07
--- OUTSIDE RECORDS SUMMARY | 2024-06-21 07:43 | XMS_ITS | CCD ---
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 Ayleen Navarro Glucose [Mass/Vol] 192 mg/dL Normal [facility] Comment on above: Performed By: #### D ATA1C #### [facility] [address] [address] [address] Ayleen Navarro HbA1c (Bld) [Mass fraction] 8.3 % Critically high 4.5-6.2 [facility] Comment on above: Performed By: #### D ATA1C #### [facility] [address] [address] [address] Ayleen Navarro GLYCOHEMOGLOBIN A1Con 2021 ADA RECOMMENDATION SEE BELOW Normal [facility] Comment on above: Result Comment: ADA RECOMMENDED LIMIT 4.0 - 6.0 ADA THERAPEUTIC TARGET < 7.0 ACTION SUGGESTED > 7.0 Performed By: #### D ATA1C ####[facility] [address] [address]Dr. Ayleen Navarro Glucose [Mass/Vol] 180 mg/dL Normal [facility] Comment on above: Performed By: #### D ATA1C ####[facility] [address] [address]Dr. Ayleen Navarro HbA1c (Bld) [Mass fraction] 7.9 % Critically high 4.5-6.2 [facility] Comment on above: Performed By: #### D ATA1C ####[facility] [address] [address]Dr. Ayleen Navarro CBC AUTO DIFFon 06-13-2022 BASO # 0.1 103/ul Normal 0.0-0.1 [facility] Comment on above: Performed By: #### C BC #### [facility] [address] [address] [address] Ayleen Navarro Basophils/100 WBC (Bld) 0.7 % Normal 0.2-2.0 [facility] Comment on above: Performed By: #### C BC #### [facility] [address] [address] [address] Ayleen Navarro EO # 0.2 103/ul Normal 0.0-0.7 [facility] Comment on above: Performed By: #### C BC #### [facility] [address] [address] [address] Ayleen Navarro Eosinophils/100 WBC (Bld) 2.1 % Normal 0.9-7.0 [facility] Comment on above: Performed By: #### C BC #### [facility] [address] [place] [address] Dr. Ayleen Navarro Erythrocyte distribution width (RBC) [Ratio] 12.6 % Normal 11.0-15.0 [facility] Comment on above: Performed By: #### C BC #### [facility] [address] [address] [address] Ayleen Navarro Hematocrit (Bld) [Volume fraction] 42.8 % Normal 36.0-48.0 [facility] Comment on above: Performed By: #### C BC #### [facility] [address] [address] [address] Ayleen Navarro Hemoglobin (Bld) [Mass/Vol] 14.3 g/dL Normal 12.0-16.0 [facility] Comment on above: Performed By: #### C BC #### [facility] [address] [address] [address] Ayleen Navarro IG # 0.05 10e3/ul Critically high 0.00-0.03 [facility] Comment on above: Performed By: #### C BC #### [facility] [address] [address] [address] Ayleen Navarro IG % 0.5 % Normal 0.0-0.5 [facility] Comment on above: Performed By: #### C BC #### [facility] [address] [place] [address] Dr. Ayleen Navarro LYMPH # 3.4 103/ul Normal 1.2-3.8 [facility] Comment on above: Performed By: #### C BC #### [facility] [address] [place] [address] Dr. Ayleen Navarro Lymphocytes/100 WBC (Bld) 31.5 % Normal 20.5-60.0 [facility] Comment on above: Performed By: #### C BC #### [facility] [address] [place] [address] Dr. Ayleen Navarro MANUAL DIFF REQ NO Normal [facility] Comment on above: Performed By: #### C BC #### [facility] [address] [place] [address] Dr. Ayleen Navarro MCH (RBC) [Entitic mass] 29.3 pg Normal 26.7-34.0 [facility] Comment on above: Performed By: #### C BC #### [facility] [address] [place] [address] Dr. Ayleen Navarro MCHC (RBC) [Mass/Vol] 33.4 g/dL Normal 29.9-35.2 [facility] Comment on above: Performed By: #### C BC #### [facility] [address] [place] [address] Dr. Ayleen Navarro MCV (RBC) [Entitic vol] 87.7 fL Normal 81.0-99.0 [facility] Comment on above: Performed By: #### C BC #### [facility] [address] [place] [address] Dr. Ayleen Navarro MONO # 0.6 103/ul Normal 0.3-0.8 [facility] Comment on above: Performed By: #### C BC #### [facility] [address] [place] [address] Dr. Ayleen Navarro Monocytes/100 WBC (Bld) 5.5 % Normal 1.7-12.0 [facility] Comment on above: Performed By: #### C BC #### [facility] [address] [place] [address] Dr. Ayleen Navarro NEUT # 6.4 103/ul Normal 1.4-6.5 [facility] Comment on above: Performed By: #### C BC #### [facility] [address] [place] [address] Dr. Ayleen Navarro Neutrophils/100 WBC (Bld) 59.7 % Normal 43.0-75.0 [facility] Comment on above: Performed By: #### C BC #### [facility] [address] [place] [address] Dr. Ayleen Navarro Platelet mean volume (Bld) [Entitic vol] 10.9 fL Normal 9.5-13.5 [facility] Comment on above: Performed By: #### C BC #### [facility] [address] [place] [address] Dr. Ayleen Navarro PLT 229 103/ul Normal 150-450 [facility] Comment on above: Performed By: #### C BC #### [facility] [address] [place] [address] Dr. Ayleen Navarro RBC 4.88 106/ul Normal 4.20-5.40 [facility] Comment on above: Performed By: #### C BC #### [facility] [address] [place] [address] Dr. Ayleen Navarro WBC 10.7 103/ul Normal 4.0-11.0 [facility] Comment on above: Performed By: #### C BC #### [facility] [address] [place] [address] Dr. Ayleen Navarro PROF 14(COMP METB)on 022 Albumin [Mass/Vol] 3.2 g/dL Critically low 3.4-5.0 [facility] Comment on above: Performed By: #### H BENI, CMP #### [facility] [address] [place] [address] Dr. Ayleen Navarro Albumin/Globulin [Mass ratio] 0.8 {ratio} Normal [facility] Comment on above: Performed By: #### H BENI, CMP #### [facility] [address] [address] [address] Ayleen Navarro ALP [Catalytic activity/Vol] 76 U/L Normal 46-116 [facility] Comment on above: Performed By: #### H STROPN, CMP #### [facility] [address] [address] [address] Ayleen Navarro ALT [Catalytic activity/Vol] 24 U/L Normal 14-59 [facility] Comment on above: Performed By: #### H STROPN, CMP #### [facility] [address] [address] [address] Ayleen Navarro Anion gap [Moles/Vol] 8.5 mmol/L Normal [facility] Comment on above: Performed By: #### H STROPN, CMP #### [facility] [address] [address] [address] Ayleen Navarro AST [Catalytic activity/Vol] 4 U/L Critically low 15-37 [facility] Comment on above: Performed By: #### H STROPN, CMP #### [facility] [address] [address] [address] Ayleen Navarro Bilirubin [Mass/Vol] 0.2 mg/dL Normal 0.2-1.0 [facility] Comment on above: Performed By: #### H STROPN, CMP #### [facility] [address] [address] [address] Ayleen Navarro Calcium [Mass/Vol] 8.8 mg/dL Normal 8.5-10.1 [facility] Comment on above: Performed By: #### H STROPN, CMP #### [facility] [address] [address] [address] Ayleen Navarro Chloride [Moles/Vol] 99 mmol/L Normal 98-107 [facility] Comment on above: Performed By: #### H STROPN, CMP #### [facility] [address] [address] [address] Ayleen Navarro CO2 [Moles/Vol] 29.9 mmol/L Normal 21.0-32.0 [facility] Comment on above: Performed By: #### H STROPN, CMP #### [facility] [address] [address] [address] Ayleen Navarro Creatinine [Mass/Vol] 0.88 mg/dL Normal 0.55-1.02 [facility] Comment on above: Performed By: #### H STROPN, CMP #### [facility] [address] [address] [address] Ayleen Navaror EGFR-AF ARMENIAN >60 Normal >=60 [facility] Comment on above: Performed By: #### H STROPN, CMP #### [facility] [address] [address] [address] Ayleen Navarro EGFR-NON AF ARMENIAN >60 Normal >=60 [facility] Comment on above: Performed By: #### H STROPN, CMP #### [facility] [address] [address] [address] Ayleen Navarro Globulin (S) [Mass/Vol] 3.9 g/dL Normal [facility] Comment on above: Performed By: #### H STROPN, CMP #### [facility] [address] [address] [address] Ayleen Navarro Glucose [Mass/Vol] 245 mg/dL Critically high 74-106 [facility] Comment on above: Performed By: #### H STROPN, CMP #### [facility] [address] [address] [address] Ayleen Navarro Potassium [Moles/Vol] 3.4 mmol/L Critically low 3.5-5.1 [facility] Comment on above: Performed By: #### H STROPN, CMP #### [facility] [address] [address] [address] Ayleen Navarro Protein [Mass/Vol] 7.1 g/dL Normal 6.4-8.2 [facility] Comment on above: Performed By: #### H STROPN, CMP #### [facility] [address] [address] [address] Ayleen Navarro Sodium [Moles/Vol] 134 mmol/L Critically low 136-145 [facility] Comment on above: Performed By: #### H STROPN, CMP #### [facility] [address] [place], [place] [address] Dr. Ayleen Navarro Urea nitrogen [Mass/Vol] 18.0 mg/dL Normal 7.0-18.0 [facility] Comment on above: Performed By: #### H STROPN, CMP #### [facility] [address] [place], [place] [address] Dr. Ayleen Navarro Urea nitrogen/Creatinine [Mass ratio] 20.5 mg/mg Normal [facility] Comment on above: Performed By: #### H STROPN, CMP #### [facility] [address] [place], [place] [address] Dr. Ayleen Navarro TROPONIN, HIGH SENSITIVITYon 06-13-2022 HSTROP 8.6 pg/mL Normal 4.0-51.3 [facility] Comment on above: Result Comment: CUT- OFF POINTS HAVE BEEN ESTABLISHED BASED ON THE FOURTH UNIVERSAL DEFINITIONS OF MYOCARDIAL INFARCTION. THE UPPER REFERENCE LIMIT (URL) OF TROPONIN, DEFINED THE 99TH PERCENTILE OF cTnI DISTRIBUTION IN A REFERENCE POPULATION, HAS BEEN CONFIRMED THE DECISION THRESHOLD FOR SC DIAGNOSIS. Performed By: #### H STROPN ####[facility] [address] [place], [place] [address]Dr. Ayleen Navarro HSTROP <4.0 Normal 4.0-51.3 [facility] Comment on above: Result Comment: CUT- OFF POINTS HAVE BEEN ESTABLISHED BASED ON THE FOURTH UNIVERSAL DEFINITIONS OF MYOCARDIAL INFARCTION. THE UPPER REFERENCE LIMIT (URL) OF TROPONIN, DEFINED THE 99TH PERCENTILE OF cTnI DISTRIBUTION IN A REFERENCE POPULATION, HAS BEEN CONFIRMED THE DECISION THRESHOLD FOR SC DIAGNOSIS. Performed By: #### H STROPN, CMP #### [facility] [address] [place], [place] [address] Dr. Ayleen Navarro XR CHEST 1 Von [...] Radha GONZALEZ Date: 2022-06-13 04:44 Normal [facility] INSULINon 02-23-2022 Insulin 22.9 uIU/mL Normal 2.6-24.9 [facility] Comment on above: Performed By: #### I NSULIN #### [facility] [address] [address] [address] Ayleen Navarro CBC AUTO DIFFon 02-22-2022 BASO # 0.1 103/ul Normal 0.0-0.1 [facility] Comment on above: Performed By: #### C BC ####[facility] [address] [address]Dr. Ayleen Navarro Basophils/100 WBC (Bld) 0.9 % Normal 0.2-2.0 [facility] Comment on above: Performed By: #### C BC ####[facility] [address] [address]Dr. Ayleen Navarro EO # 0.2 103/ul Normal 0.0-0.7 [facility] Comment on above: Performed By: #### C BC ####[facility] [address] [address]Dr. Ayleen Navarro Eosinophils/100 WBC (Bld) 2.6 % Normal 0.9-7.0 [facility] Comment on above: Performed By: #### C BC ####[facility] [address] [address]Dr. Ayleen Navarro Erythrocyte distribution width (RBC) [Ratio] 13.3 % Normal 11.0-15.0 [facility] Comment on above: Performed By: #### C BC ####[facility] [address] [address]Dr. Ayleen Navarro Hematocrit (Bld) [Volume fraction] 42.8 % Normal 36.0-48.0 [facility] Comment on above: Performed By: #### C BC ####[facility] [address] [address]Dr. Ayleen Navarro Hemoglobin (Bld) [Mass/Vol] 14.3 g/dL Normal 12.0-16.0 [facility] Comment on above: Performed By: #### C BC ####[facility] [address] [address]DrMiky Navarro IG # 0.05 10e3/ul Critically high 0.00-0.03 [facility] Comment on above: Performed By: #### C BC ####[facility] [address] [address]DrMiky Navarro IG % 0.5 % Normal 0.0-0.5 [facility] Comment on above: Performed By: #### C BC ####[facility] [address] [place], [place] [address]DrMiky Navarro LYMPH # 3.0 103/ul Normal 1.2-3.8 [facility] Comment on above: Performed By: #### C BC ####[facility] [address] [place], [place] [address]DrMiky Navarro Lymphocytes/100 WBC (Bld) 32.4 % Normal 20.5-60.0 [facility] Comment on above: Performed By: #### C BC ####[facility] [address] [place], [place] [address]DrMiky Navarro MANUAL DIFF REQ NO Normal [facility] Comment on above: Performed By: #### C BC ####[facility] [address] [place], [place] [address]DrMiky Navarro MCH (RBC) [Entitic mass] 29.5 pg Normal 26.7-34.0 [facility] Comment on above: Performed By: #### C BC ####[facility] [address] [place], [place] [address]DrMiky Navarro MCHC (RBC) [Mass/Vol] 33.4 g/dL Normal 29.9-35.2 [facility] Comment on above: Performed By: #### C BC ####[facility] [address] [place], [place] [address]DrMiky Navarro MCV (RBC) [Entitic vol] 88.2 fL Normal 81.0-99.0 [facility] Comment on above: Performed By: #### C BC ####[facility] [address] [place], [place] [address]Dr. Ayleen Navarro MONO # 0.6 103/ul Normal 0.3-0.8 [facility] Comment on above: Performed By: #### C BC ####[facility] [address] [place], [place] [address]Dr. Ayleen Ramon Monocytes/100 WBC (Bld) 6.7 % Normal 1.7-12.0 [facility] Comment on above: Performed By: #### C BC ####[facility] [address] [place], [place] [address]Dr. Ayleen Navarro NEUT # 5.3 103/ul Normal 1.4-6.5 [facility] Comment on above: Performed By: #### C BC ####[facility] [address] [place], [place] [address]Dr. Ayleen Ramon Neutrophils/100 WBC (Bld) 56.9 % Normal 43.0-75.0 [facility] Comment on above: Performed By: #### C BC ####[facility] [address] [place], [place] [address]Dr. Ayleen Navarro Platelet mean volume (Bld) [Entitic vol] 11.0 fL Normal 9.5-13.5 [facility] Comment on above: Performed By: #### C BC ####[facility] [address] [place], [place] [address]Dr. Ayleen Ramon PLT 239 103/ul Normal 150-450 [facility] Comment on above: Performed By: #### C BC ####[facility] [address] [place], [place] [address]Dr. Ayleen Ramon RBC 4.85 106/ul Normal 4.20-5.40 [facility] Comment on above: Performed By: #### C BC ####[facility] [address] [place], [place] [address]Dr. Ayleen Navarro WBC 9.3 103/ul Normal 4.0-11.0 [facility] Comment on above: Performed By: #### C BC ####[facility] [address] [address]Dr. Ayleen Navarro FREE THYROXINE INDEX T7on FTI 3.36 Normal 1.30-4.50 [facility] Comment on above: Performed By: #### L IPID, CMP, T7, TSH #### [facility] [address] [address] [address] Ayleen Navarro T3U 32.0 % Normal 30.0-39.0 [facility] Comment on above: Performed By: #### L IPID, CMP, T7, TSH #### [facility] [address] [address] [address] Ayleen Navarro T4 [Mass/Vol] 10.50 ug/dL Normal 4.80-13.90 [facility] Comment on above: Performed By: #### L IPID, CMP, T7, TSH #### [facility] [address] [address] [address] Ayleen Navarro IRONon 02-22-2022 Iron [Mass/Vol] 117.0 ug/dL Normal 50.0-170.0 [facility] Comment on above: Performed By: #### I FEDERICO ####[facility] [address] [address]Dr. Ayleen Navarro LIPID PROFILEon 02-22-2022 CHOL-HDL RATIO NORM SEE BELOW Normal [facility] Comment on above: Result Comment: 3.3 - 4.4 LOW RISK 4.4 - 7.1 AVERAGE RISK 7.1 - 11.0 MODERATE RISK >11.0 HIGH RISK Performed By: #### L IPID, CMP, T7, TSH #### [facility] [address] [address] [address] Ayleen Navarro Cholesterol [Mass/Vol] 161 mg/dL Normal <=200 [facility] Comment on above: Performed By: #### L IPID, CMP, T7, TSH #### [facility] [address] [address] [address] Ayleen Navarro Cholesterol in HDL [Mass/Vol] 42 mg/dL Normal 40-60 [facility] Comment on above: Performed By: #### L IPID, CMP, T7, TSH #### [facility] [address] [address] [address] Ayleen Navarro Cholesterol in LDL [Mass/Vol] 98.4 mg/dL Normal [facility] Comment on above: Performed By: #### L IPID, CMP, T7, TSH #### [facility] [address] [address] [address] Ayleen Navarro Cholesterol.total/Cho lesterol in HDL [Mass ratio] 3.8 {ratio} Normal [facility] Comment on above: Performed By: #### L IPID, CMP, T7, TSH #### [facility] [address] [address] [address] Ayleen Navarro HDL NORMAL > or = 60 mg/dl - LO W CARDIOVASCULAR RISK <40 mg/dl - HIGH CARDIOVASCULAR RISK Normal [facility] Comment on above: Performed By: #### L IPID, CMP, T7, TSH #### [facility] [address] [address] [address] Ayleen Navarro LDL CALC NORMAL SEE BELOW Normal [facility] Comment on above: Result Comment: <100 mg/dl OPTIMAL 100 - 129 mg/dl NEAR OR ABOVE OPTIMAL 130 - 159 mg/dl BORDERLINE HIGH 160 - 189 mg/dl HIGH >190 mg/dl VERY HIGH Performed By: #### L IPID, CMP, T7, TSH #### [facility] [address] [address] [address] Ayleen Navarro Triglyceride [Mass/Vol] 103 mg/dL Normal <=150 [facility] Comment on above: Performed By: #### L IPID, CMP, T7, TSH #### [facility] [address] [address] [address] Ayleen Navarro VLDL CALC 20.6 mg/dL Normal [facility] Comment on above: Performed By: #### L IPID, CMP, T7, TSH #### [facility] [address] [address] [address] Ayleen Navarro PROF 14(COMP METB)on 022 Albumin [Mass/Vol] 3.4 g/dL Normal 3.4-5.0 [facility] Comment on above: Performed By: #### L IPID, CMP, T7, TSH #### [facility] [address] [address] [address] Ayleen Navarro Albumin/Globulin [Mass ratio] 0.9 {ratio} Normal [facility] Comment on above: Performed By: #### L IPID, CMP, T7, TSH #### [facility] [address] [place] [address] Dr. Ayleen Navarro ALP [Catalytic activity/Vol] 71 U/L Normal 46-116 [facility] Comment on above: Performed By: #### L IPID, CMP, T7, TSH #### [facility] [address] [place] [address] Dr. Ayleen Navarro ALT [Catalytic activity/Vol] 25 U/L Normal 14-59 [facility] Comment on above: Performed By: #### L IPID, CMP, T7, TSH #### [facility] [address] [address] [address] Ayleen Navarro Anion gap [Moles/Vol] 10.1 mmol/L Normal [facility] Comment on above: Performed By: #### L IPID, CMP, T7, TSH #### [facility] [address] [place] [address] Dr. Ayleen Navarro AST [Catalytic activity/Vol] 11 U/L Critically low 15-37 [facility] Comment on above: Performed By: #### L IPID, CMP, T7, TSH #### [facility] [address] [place] [address] Dr. Ayleen Navarro Bilirubin [Mass/Vol] 0.5 mg/dL Normal 0.2-1.0 [facility] Comment on above: Performed By: #### L IPID, CMP, T7, TSH #### [facility] [address] [place] [address] Dr. Ayleen Navarro Calcium [Mass/Vol] 8.8 mg/dL Normal 8.5-10.1 [facility] Comment on above: Performed By: #### L IPID, CMP, T7, TSH #### [facility] [address] [address] [address] Ayleen Navarro Chloride [Moles/Vol] 100 mmol/L Normal 98-107 [facility] Comment on above: Performed By: #### L IPID, CMP, T7, TSH #### [facility] [address] [address] [address] Ayleen Navarro CO2 [Moles/Vol] 29.5 mmol/L Normal 21.0-32.0 [facility] Comment on above: Performed By: #### L IPID, CMP, T7, TSH #### [facility] [address] [place] [address] Dr. Ayleen Navarro Creatinine [Mass/Vol] 0.61 mg/dL Normal 0.55-1.02 [facility] Comment on above: Performed By: #### L IPID, CMP, T7, TSH #### [facility] [address] [address] [address] Ayleen Navarro EGFR-AF ARMENIAN >60 Normal >=60 [facility] Comment on above: Performed By: #### L IPID, CMP, T7, TSH #### [facility] [address] [place] [address] Dr. Ayleen Navarro EGFR-NON AF ARMENIAN >60 Normal >=60 [facility] Comment on above: Performed By: #### L IPID, CMP, T7, TSH #### [facility] [address] [address] [address] Ayleen Navarro Globulin (S) [Mass/Vol] 3.9 g/dL Normal [facility] Comment on above: Performed By: #### L IPID, CMP, T7, TSH #### [facility] [address] [place] [address] Dr. Ayleen Navarro Glucose [Mass/Vol] 119 mg/dL Critically high 74-106 [facility] Comment on above: Performed By: #### L IPID, CMP, T7, TSH #### [facility] [address] [place] [address] Dr. Ayleen Navarro Potassium [Moles/Vol] 3.6 mmol/L Normal 3.5-5.1 [facility] Comment on above: Performed By: #### L IPID, CMP, T7, TSH #### [facility] [address] [address] [address] Ayleen Navarro Protein [Mass/Vol] 7.3 g/dL Normal 6.4-8.2 [facility] Comment on above: Performed By: #### L IPID, CMP, T7, TSH #### [facility] [address] [address] [address] Ayleen Navarro Sodium [Moles/Vol] 136 mmol/L Normal 136-145 [facility] Comment on above: Performed By: #### L IPID, CMP, T7, TSH #### [facility] [address] [address] [address] Ayleen Navarro Urea nitrogen [Mass/Vol] 19.0 mg/dL Critically high 7.0-18.0 [facility] Comment on above: Performed By: #### L IPID, CMP, T7, TSH #### [facility] [address] [address] [address] Ayleen Navarro Urea nitrogen/Creatinine [Mass ratio] 31.1 mg/mg Normal [facility] Comment on above: Performed By: #### L IPID, CMP, T7, TSH #### [facility] [address] [address] [address] Ayleen Navarro TSHon 02-22-2022 TSH 0.964 uIU/mL Normal 0.358-3.740 [facility] Comment on above: Performed By: #### L IPID, CMP, T7, TSH #### [facility] [address] [address] [address] Ayleen Navarro GLYCOHEMOGLOBIN A1Con 2021 ADA RECOMMENDATION SEE BELOW Normal [facility] Comment on above: Result Comment: ADA RECOMMENDED LIMIT 4.0 - 6.0 ADA THERAPEUTIC TARGET < 7.0 ACTION SUGGESTED > 7.0 Performed By: #### A 1C ####[facility] [id number] [place], [place] [address]Df. Ayleen Navarro Glucose [Mass/Vol] 140 mg/dL Normal [facility] Comment on above: Performed By: #### A 1C ####[facility] [id number] [place], [place] [address]Fm. Ayleen Navarro HbA1c (Bld) [Mass fraction] 6.5 % Critically high 4.5-6.2 [facility] Comment on above: Performed By: #### A 1C ####[facility] [id number] [place], [place] [address]Im. Ayleen Navarro Encounters Encounter Date Encounter Type Care Provider Facility Start: 11-23-2022 Encounter for genera l adult medical examination without abnormal findings NEGIN HARDWICK [facility] Start: 11-19-2022 End: 11-20-2022 [...] Facility:[facility] Payers Date Payer Category Payer Unknown [id number] 10.17.83 [id number] 1969 Unknown [id number] 1969 Unknown [id number] 1959 Self-pay 1959 Unknown [id number] 1959 Unknown Unknown [id number] Unknown [id number] 10.17.84 [id number] Summary Purpose Family History No Family History [...] BE BASED ON THE PRIMARY CLINICAL RECORDS. [employer] [facility]. provides no warranty or guarantee of the accuracy or completeness of information in this document.
== END 2024-06-21 07:41 | disposition home or self-care (01) ==
LOC: MRI 07:40
PROVIDERS: PCP Nurse Practitioner Family; Visit Provider Orthopaedic Surgery
DX: M54.50 Low back pain, unspecified (principal); M51.369 Other intervertebral disc degeneration, lumbar region without mention of lumbar back pain or lower extremity pain
CPT/HCPCS: 72148

== ENCOUNTER 2024-06-23 08:27 | Outpatient (OUT) | payer BC, SELFPAY ==
--- OUTSIDE RECORDS SUMMARY | 2024-06-23 08:30 | XMS_ITS | CCD ---
Author Organization [facility] Care Team Providers Care Noc Technician Name Role Phone NEGIN HARDWICK Admitting Unavailable [...] predniSONE Drug Allergy 12-09-2020 [facility] Repository Problems Active Problems Problem Classification [...] 02-14-2022 Episodic Other aftercare (1 source) Other bed bug exterminator (current) drug therapy; Translations: [OTH DETENTION CURRENT DRUG THERAPY] Onset: 06-14-2022 Episodic Other non-traumatic joint disorders (4 sources) Pain in left shoulder; Translations: [PAIN IN LEFT SHOULDER] Onset: 06-13-2022 Episodic Results Test Name Value Interpretation Reference Range Facility GLYCOHEMOGLOBIN A1Con 2022 ADA RECOMMENDATION SEE BELOW Normal [facility] Comment on above: Result Comment: ADA RECOMMENDED LIMIT 4.0 - 6.0 ADA THERAPEUTIC TARGET < 7.0 ACTION SUGGESTED > 7.0 Performed By: #### D ATA1C #### [facility] [address] [address] [address] Ayleen Navarro Glucose [Mass/Vol] 192 mg/dL Normal [facility] Comment on above: Performed By: #### D ATA1C #### [facility] [address] [address] [address] Ayleen Navarro HbA1c (Bld) [Mass fraction] 8.3 % Critically high 4.5-6.2 [facility] Comment on above: Performed By: #### D ATA1C #### [facility] [address] [address] [address] Ayleen Navarro GLYCOHEMOGLOBIN A1Con 2021 ADA RECOMMENDATION SEE BELOW Normal [facility] Comment on above: Result Comment: ADA RECOMMENDED LIMIT 4.0 - 6.0 ADA THERAPEUTIC TARGET < 7.0 ACTION SUGGESTED > 7.0 Performed By: #### D ATA1C ####[facility] [address] [address]Dr. Ayleen Navarro Glucose [Mass/Vol] 180 mg/dL Normal [facility] Comment on above: Performed By: #### D ATA1C ####[facility] [address] [address]Dr. Ayleen Navarro HbA1c (Bld) [Mass fraction] 7.9 % Critically high 4.5-6.2 [facility] Comment on above: Performed By: #### D ATA1C ####[facility] [address] [address]Dr. Ayleen Navarro CBC AUTO DIFFon 06-13-2022 BASO # 0.1 103/ul Normal 0.0-0.1 [facility] Comment on above: Performed By: #### C BC #### [facility] [address] [address] [address] Ayleen Navarro Basophils/100 WBC (Bld) 0.7 % Normal 0.2-2.0 [facility] Comment on above: Performed By: #### C BC #### [facility] [address] [address] [address] Ayleen Navarro EO # 0.2 103/ul Normal 0.0-0.7 [facility] Comment on above: Performed By: #### C BC #### [facility] [address] [address] [address] Ayleen Navarro Eosinophils/100 WBC (Bld) 2.1 % Normal 0.9-7.0 [facility] Comment on above: Performed By: #### C BC #### [facility] [address] [place] [address] Dr. Ayleen Navarro Erythrocyte distribution width (RBC) [Ratio] 12.6 % Normal 11.0-15.0 [facility] Comment on above: Performed By: #### C BC #### [facility] [address] [address] [address] Ayleen Navarro Hematocrit (Bld) [Volume fraction] 42.8 % Normal 36.0-48.0 [facility] Comment on above: Performed By: #### C BC #### [facility] [address] [address] [address] Ayleen Navarro Hemoglobin (Bld) [Mass/Vol] 14.3 g/dL Normal 12.0-16.0 [facility] Comment on above: Performed By: #### C BC #### [facility] [address] [address] [address] Ayleen Navarro IG # 0.05 10e3/ul Critically high 0.00-0.03 [facility] Comment on above: Performed By: #### C BC #### [facility] [address] [address] [address] Ayleen Navarro IG % 0.5 % Normal 0.0-0.5 [facility] Comment on above: Performed By: #### C BC #### [facility] [address] [place] [address] Dr. Ayleen Navarro LYMPH # 3.4 103/ul Normal 1.2-3.8 [facility] Comment on above: Performed By: #### C BC #### [facility] [address] [place] [address] Dr. Ayleen Navarro Lymphocytes/100 WBC (Bld) 31.5 % Normal 20.5-60.0 [facility] Comment on above: Performed By: #### C BC #### [facility] [address] [place] [address] Dr. Ayleen Navarro MANUAL DIFF REQ NO Normal [facility] Comment on above: Performed By: #### C BC #### [facility] [address] [place] [address] Dr. Ayleen Navarro MCH (RBC) [Entitic mass] 29.3 pg Normal 26.7-34.0 [facility] Comment on above: Performed By: #### C BC #### [facility] [address] [place] [address] Dr. Ayleen Navarro MCHC (RBC) [Mass/Vol] 33.4 g/dL Normal 29.9-35.2 [facility] Comment on above: Performed By: #### C BC #### [facility] [address] [place] [address] Dr. Ayleen Navarro MCV (RBC) [Entitic vol] 87.7 fL Normal 81.0-99.0 [facility] Comment on above: Performed By: #### C BC #### [facility] [address] [place] [address] Dr. Ayleen Navarro MONO # 0.6 103/ul Normal 0.3-0.8 [facility] Comment on above: Performed By: #### C BC #### [facility] [address] [place] [address] Dr. Ayleen Navarro Monocytes/100 WBC (Bld) 5.5 % Normal 1.7-12.0 [facility] Comment on above: Performed By: #### C BC #### [facility] [address] [place] [address] Dr. Ayleen Navarro NEUT # 6.4 103/ul Normal 1.4-6.5 [facility] Comment on above: Performed By: #### C BC #### [facility] [address] [place] [address] Dr. Ayleen Navarro Neutrophils/100 WBC (Bld) 59.7 % Normal 43.0-75.0 [facility] Comment on above: Performed By: #### C BC #### [facility] [address] [place] [address] Dr. Ayleen Navarro Platelet mean volume (Bld) [Entitic vol] 10.9 fL Normal 9.5-13.5 [facility] Comment on above: Performed By: #### C BC #### [facility] [address] [place] [address] Dr. Ayleen Navarro PLT 229 103/ul Normal 150-450 [facility] Comment on above: Performed By: #### C BC #### [facility] [address] [place] [address] Dr. Ayleen Navarro RBC 4.88 106/ul Normal 4.20-5.40 [facility] Comment on above: Performed By: #### C BC #### [facility] [address] [place] [address] Dr. Ayleen Navarro WBC 10.7 103/ul Normal 4.0-11.0 [facility] Comment on above: Performed By: #### C BC #### [facility] [address] [place] [address] Dr. Ayleen Navarro PROF 14(COMP METB)on 022 Albumin [Mass/Vol] 3.2 g/dL Critically low 3.4-5.0 [facility] Comment on above: Performed By: #### H BENI, CMP #### [facility] [address] [place] [address] Dr. Ayleen Navarro Albumin/Globulin [Mass ratio] 0.8 {ratio} Normal [facility] Comment on above: Performed By: #### H BENI, CMP #### [facility] [address] [address] [address] Ayleen Navarro ALP [Catalytic activity/Vol] 76 U/L Normal 46-116 [facility] Comment on above: Performed By: #### H STROPN, CMP #### [facility] [address] [address] [address] Ayleen Navarro ALT [Catalytic activity/Vol] 24 U/L Normal 14-59 [facility] Comment on above: Performed By: #### H STROPN, CMP #### [facility] [address] [address] [address] Ayleen Navarro Anion gap [Moles/Vol] 8.5 mmol/L Normal [facility] Comment on above: Performed By: #### H STROPN, CMP #### [facility] [address] [address] [address] Ayleen Navarro AST [Catalytic activity/Vol] 4 U/L Critically low 15-37 [facility] Comment on above: Performed By: #### H STROPN, CMP #### [facility] [address] [address] [address] Ayleen Navarro Bilirubin [Mass/Vol] 0.2 mg/dL Normal 0.2-1.0 [facility] Comment on above: Performed By: #### H STROPN, CMP #### [facility] [address] [address] [address] Ayleen Navarro Calcium [Mass/Vol] 8.8 mg/dL Normal 8.5-10.1 [facility] Comment on above: Performed By: #### H STROPN, CMP #### [facility] [address] [address] [address] Ayleen Navarro Chloride [Moles/Vol] 99 mmol/L Normal 98-107 [facility] Comment on above: Performed By: #### H STROPN, CMP #### [facility] [address] [address] [address] Ayleen Navarro CO2 [Moles/Vol] 29.9 mmol/L Normal 21.0-32.0 [facility] Comment on above: Performed By: #### H STROPN, CMP #### [facility] [address] [address] [address] Ayleen Navarro Creatinine [Mass/Vol] 0.88 mg/dL Normal 0.55-1.02 [facility] Comment on above: Performed By: #### H STROPN, CMP #### [facility] [address] [address] [address] Ayleen Navarro EGFR-AF BOLIVIAN >60 Normal >=60 [facility] Comment on above: Performed By: #### H STROPN, CMP #### [facility] [address] [address] [address] Ayleen Navarro EGFR-NON AF BOLIVIAN >60 Normal >=60 [facility] Comment on above: Performed By: #### H STROPN, CMP #### [facility] [address] [address] [address] Ayleen Navarro Globulin (S) [Mass/Vol] 3.9 g/dL Normal [facility] Comment on above: Performed By: #### H STROPN, CMP #### [facility] [address] [address] [address] Ayleen Navarro Glucose [Mass/Vol] 245 mg/dL Critically high 74-[address] [facility] Comment on above: Performed By: #### H STROPN, CMP #### [facility] [address] [address] [address] Ayleen Navarro Potassium [Moles/Vol] 3.4 mmol/L Critically low 3.5-5.1 [facility] Comment on above: Performed By: #### H STROPN, CMP #### [facility] [address] [address] [address] Ayleen Navarro Protein [Mass/Vol] 7.1 g/dL Normal 6.4-8.2 [facility] Comment on above: Performed By: #### H STROPN, CMP #### [facility] [address] [address] [address] Ayleen Navarro Sodium [Moles/Vol] 134 mmol/L Critically low 136-145 [facility] Comment on above: Performed By: #### H STROPN, CMP #### [facility] [address] [place], [place] [address] Dr. Ayleen Navarro Urea nitrogen [Mass/Vol] 18.0 mg/dL Normal 7.0-18.0 [facility] Comment on above: Performed By: #### H STROPN, CMP #### [facility] [address] [place], [place] [address] Dr. Ayleen Navarro Urea nitrogen/Creatinine [Mass ratio] 20.5 mg/mg Normal [facility] Comment on above: Performed By: #### H STROPN, CMP #### [facility] [address] [place], [place] [address] Dr. Ayleen Navarro TROPONIN, HIGH SENSITIVITYon 06-13-2022 HSTROP 8.6 pg/mL Normal 4.0-51.3 [facility] Comment on above: Result Comment: CUT- OFF POINTS HAVE BEEN ESTABLISHED BASED ON THE FOURTH UNIVERSAL DEFINITIONS OF MYOCARDIAL INFARCTION. THE UPPER REFERENCE LIMIT (URL) OF TROPONIN, DEFINED THE 99TH PERCENTILE OF cTnI DISTRIBUTION IN A REFERENCE POPULATION, HAS BEEN CONFIRMED THE DECISION THRESHOLD FOR MA DIAGNOSIS. Performed By: #### H STROPN ####[facility] [address] [place], [place] [address]XgDr. Ayleen Navarro HSTROP <4.0 Normal 4.0-51.3 [facility] Comment on above: Result Comment: CUT- OFF POINTS HAVE BEEN ESTABLISHED BASED ON THE FOURTH UNIVERSAL DEFINITIONS OF MYOCARDIAL INFARCTION. THE UPPER REFERENCE LIMIT (URL) OF TROPONIN, DEFINED THE 99TH PERCENTILE OF cTnI DISTRIBUTION IN A REFERENCE POPULATION, HAS BEEN CONFIRMED THE DECISION THRESHOLD FOR MA DIAGNOSIS. Performed By: #### H STROPN, CMP #### [facility] [address] [place], [place] [address] Dr. Ayleen Navarro XR CHEST 1 Von [...] Date: 2022-06-13 04:44 Normal [facility] INSULINon 02-23-2022 Insulin 22.9 uIU/mL Normal 2.6-24.9 [facility] Comment on above: Performed By: #### I NSULIN #### [facility] [address] [address] [address] Ayleen Navarro CBC AUTO DIFFon 02-22-2022 BASO # 0.1 103/ul Normal 0.0-0.1 [facility] Comment on above: Performed By: #### C BC ####[facility] [address] [address]Dr. Ayleen Navarro Basophils/100 WBC (Bld) 0.9 % Normal 0.2-2.0 [facility] Comment on above: Performed By: #### C BC ####[facility] [address] [address]Dr. Ayleen Navarro EO # 0.2 103/ul Normal 0.0-0.7 [facility] Comment on above: Performed By: #### C BC ####[facility] [address] [address]Dr. Ayleen Navarro Eosinophils/100 WBC (Bld) 2.6 % Normal 0.9-7.0 [facility] Comment on above: Performed By: #### C BC ####[facility] [address] [address]Dr. Ayleen Navarro Erythrocyte distribution width (RBC) [Ratio] 13.3 % Normal 11.0-15.0 [facility] Comment on above: Performed By: #### C BC ####[facility] [address] [address]Dr. Ayleen Navarro Hematocrit (Bld) [Volume fraction] 42.8 % Normal 36.0-48.0 [facility] Comment on above: Performed By: #### C BC ####[facility] [address] [address]Dr. Ayleen Navarro Hemoglobin (Bld) [Mass/Vol] 14.3 g/dL Normal 12.0-16.0 [facility] Comment on above: Performed By: #### C BC ####[facility] [address] [address]DrMiky Navarro IG # 0.05 10e3/ul Critically high 0.00-0.03 [facility] Comment on above: Performed By: #### C BC ####[facility] [address] [address]DrMiky Navarro IG % 0.5 % Normal 0.0-0.5 [facility] Comment on above: Performed By: #### C BC ####[facility] [address] [place], [place] [address]DrMiky Navarro LYMPH # 3.0 103/ul Normal 1.2-3.8 [facility] Comment on above: Performed By: #### C BC ####[facility] [address] [place], [place] [address]DrMiky Navarro Lymphocytes/100 WBC (Bld) 32.4 % Normal 20.5-60.0 [facility] Comment on above: Performed By: #### C BC ####[facility] [address] [place], [place] [address]DrMiky Navarro MANUAL DIFF REQ NO Normal [facility] Comment on above: Performed By: #### C BC ####[facility] [address] [place], [place] [address]DrMiky Navarro MCH (RBC) [Entitic mass] 29.5 pg Normal 26.7-34.0 [facility] Comment on above: Performed By: #### C BC ####[facility] [address] [place], [place] [address]DrMiky Navarro MCHC (RBC) [Mass/Vol] 33.4 g/dL Normal 29.9-35.2 [facility] Comment on above: Performed By: #### C BC ####[facility] [address] [place], [place] [address]DrMiky Navarro MCV (RBC) [Entitic vol] 88.2 fL Normal 81.0-99.0 [facility] Comment on above: Performed By: #### C BC ####[facility] [address] [place], [place] [address]Dr. Ayleen Navarro MONO # 0.6 103/ul Normal 0.3-0.8 [facility] Comment on above: Performed By: #### C BC ####[facility] [address] [place], [place] [address]Dr. Ayleen Ramon Monocytes/100 WBC (Bld) 6.7 % Normal 1.7-12.0 [facility] Comment on above: Performed By: #### C BC ####[facility] [address] [place], [place] [address]Dr. Ayleen Navarro NEUT # 5.3 103/ul Normal 1.4-6.5 [facility] Comment on above: Performed By: #### C BC ####[facility] [address] [place], [place] [address]Dr. Ayleen Ramon Neutrophils/100 WBC (Bld) 56.9 % Normal 43.0-75.0 [facility] Comment on above: Performed By: #### C BC ####[facility] [address] [place], [place] [address]Dr. Ayleen Navarro Platelet mean volume (Bld) [Entitic vol] 11.0 fL Normal 9.5-13.5 [facility] Comment on above: Performed By: #### C BC ####[facility] [address] [place], [place] [address]Dr. Ayleen Ramon PLT 239 103/ul Normal 150-450 [facility] Comment on above: Performed By: #### C BC ####[facility] [address] [place], [place] [address]Dr. Ayleen Ramon RBC 4.85 106/ul Normal 4.20-5.40 [facility] Comment on above: Performed By: #### C BC ####[facility] [address] [place], [place] [address]Dr. Ayleen Navarro WBC 9.3 103/ul Normal 4.0-11.0 [facility] Comment on above: Performed By: #### C BC ####[facility] [address] [address]Dr. Ayleen Navarro FREE THYROXINE INDEX T7on FTI 3.36 Normal 1.30-4.50 [facility] Comment on above: Performed By: #### L IPID, CMP, T7, TSH #### [facility] [address] [address] [address] Ayleen Navarro T3U 32.0 % Normal 30.0-39.0 [facility] Comment on above: Performed By: #### L IPID, CMP, T7, TSH #### [facility] [address] [address] [address] Ayleen Navarro T4 [Mass/Vol] 10.50 ug/dL Normal 4.80-13.90 [facility] Comment on above: Performed By: #### L IPID, CMP, T7, TSH #### [facility] [address] [address] [address] Ayleen Navarro IRONon 02-22-2022 Iron [Mass/Vol] 117.0 ug/dL Normal 50.0-170.0 [facility] Comment on above: Performed By: #### I FEDERICO ####[facility] [address] [address]Dr. Ayleen Navarro LIPID PROFILEon 02-22-2022 CHOL-HDL RATIO NORM SEE BELOW Normal [facility] Comment on above: Result Comment: 3.3 - 4.4 LOW RISK 4.4 - 7.1 AVERAGE RISK 7.1 - 11.0 MODERATE RISK >11.0 HIGH RISK Performed By: #### L IPID, CMP, T7, TSH #### [facility] [address] [address] [address] Ayleen Navarro Cholesterol [Mass/Vol] 161 mg/dL Normal <=200 [facility] Comment on above: Performed By: #### L IPID, CMP, T7, TSH #### [facility] [address] [address] [address] Ayleen Navarro Cholesterol in HDL [Mass/Vol] 42 mg/dL Normal 40-60 [facility] Comment on above: Performed By: #### L IPID, CMP, T7, TSH #### [facility] [address] [address] [address] Ayleen Navarro Cholesterol in LDL [Mass/Vol] 98.4 mg/dL Normal [facility] Comment on above: Performed By: #### L IPID, CMP, T7, TSH #### [facility] [address] [address] [address] Ayleen Navarro Cholesterol.total/Cho lesterol in HDL [Mass ratio] 3.8 {ratio} Normal [facility] Comment on above: Performed By: #### L IPID, CMP, T7, TSH #### [facility] [address] [address] [address] Ayleen Navarro HDL NORMAL > or = 60 mg/dl - LO W CARDIOVASCULAR RISK <40 mg/dl - HIGH CARDIOVASCULAR RISK Normal [facility] Comment on above: Performed By: #### L IPID, CMP, T7, TSH #### [facility] [address] [address] [address] Ayleen Navarro LDL CALC NORMAL SEE BELOW Normal [facility] Comment on above: Result Comment: <100 mg/dl OPTIMAL 100 - 129 mg/dl NEAR OR ABOVE OPTIMAL 130 - 159 mg/dl BORDERLINE HIGH 160 - 189 mg/dl HIGH >190 mg/dl VERY HIGH Performed By: #### L IPID, CMP, T7, TSH #### [facility] [address] [address] [address] Ayleen Navarro Triglyceride [Mass/Vol] 103 mg/dL Normal <=150 [facility] Comment on above: Performed By: #### L IPID, CMP, T7, TSH #### [facility] [address] [address] [address] Ayleen Navarro VLDL CALC 20.6 mg/dL Normal [facility] Comment on above: Performed By: #### L IPID, CMP, T7, TSH #### [facility] [address] [address] [address] Ayleen Navarro PROF 14(COMP METB)on 022 Albumin [Mass/Vol] 3.4 g/dL Normal 3.4-5.0 [facility] Comment on above: Performed By: #### L IPID, CMP, T7, TSH #### [facility] [address] [address] [address] Ayleen Navarro Albumin/Globulin [Mass ratio] 0.9 {ratio} Normal [facility] Comment on above: Performed By: #### L IPID, CMP, T7, TSH #### [facility] [address] [place] [address] Dr. Ayleen Navarro ALP [Catalytic activity/Vol] 71 U/L Normal 46-116 [facility] Comment on above: Performed By: #### L IPID, CMP, T7, TSH #### [facility] [address] [place] [address] Dr. Ayleen Navarro ALT [Catalytic activity/Vol] 25 U/L Normal 14-59 [facility] Comment on above: Performed By: #### L IPID, CMP, T7, TSH #### [facility] [address] [address] [address] Ayleen Navarro Anion gap [Moles/Vol] 10.1 mmol/L Normal [facility] Comment on above: Performed By: #### L IPID, CMP, T7, TSH #### [facility] [address] [place] [address] Dr. Ayleen Navarro AST [Catalytic activity/Vol] 11 U/L Critically low 15-37 [facility] Comment on above: Performed By: #### L IPID, CMP, T7, TSH #### [facility] [address] [place] [address] Dr. Ayleen Navarro Bilirubin [Mass/Vol] 0.5 mg/dL Normal 0.2-1.0 [facility] Comment on above: Performed By: #### L IPID, CMP, T7, TSH #### [facility] [address] [place] [address] Dr. Ayleen Navarro Calcium [Mass/Vol] 8.8 mg/dL Normal 8.5-10.1 [facility] Comment on above: Performed By: #### L IPID, CMP, T7, TSH #### [facility] [address] [address] [address] Ayleen Navarro Chloride [Moles/Vol] 100 mmol/L Normal 98-107 [facility] Comment on above: Performed By: #### L IPID, CMP, T7, TSH #### [facility] [address] [address] [address] Ayleen Navarro CO2 [Moles/Vol] 29.5 mmol/L Normal 21.0-32.0 [facility] Comment on above: Performed By: #### L IPID, CMP, T7, TSH #### [facility] [address] [place] [address] Dr. Ayleen Navarro Creatinine [Mass/Vol] 0.61 mg/dL Normal 0.55-1.02 [facility] Comment on above: Performed By: #### L IPID, CMP, T7, TSH #### [facility] [address] [address] [address] Ayleen Navarro EGFR-AF BOLIVIAN >60 Normal >=60 [facility] Comment on above: Performed By: #### L IPID, CMP, T7, TSH #### [facility] [address] [place] [address] Dr. Ayleen Navarro EGFR-NON AF BOLIVIAN >60 Normal >=60 [facility] Comment on above: Performed By: #### L IPID, CMP, T7, TSH #### [facility] [address] [address] [address] Ayleen Navarro Globulin (S) [Mass/Vol] 3.9 g/dL Normal [facility] Comment on above: Performed By: #### L IPID, CMP, T7, TSH #### [facility] [address] [place] [address] Dr. Ayleen Navarro Glucose [Mass/Vol] 119 mg/dL Critically high 74-[address] [facility] Comment on above: Performed By: #### L IPID, CMP, T7, TSH #### [facility] [address] [place] [address] Dr. Ayleen Navarro Potassium [Moles/Vol] 3.6 mmol/L Normal 3.5-5.1 [facility] Comment on above: Performed By: #### L IPID, CMP, T7, TSH #### [facility] [address] [address] [address] Ayleen Navarro Protein [Mass/Vol] 7.3 g/dL Normal 6.4-8.2 [facility] Comment on above: Performed By: #### L IPID, CMP, T7, TSH #### [facility] [address] [address] [address] Ayleen Navarro Sodium [Moles/Vol] 136 mmol/L Normal 136-145 [facility] Comment on above: Performed By: #### L IPID, CMP, T7, TSH #### [facility] [address] [address] [address] Ayleen Navarro Urea nitrogen [Mass/Vol] 19.0 mg/dL Critically high 7.0-18.0 [facility] Comment on above: Performed By: #### L IPID, CMP, T7, TSH #### [facility] [address] [address] [address] Ayleen Navarro Urea nitrogen/Creatinine [Mass ratio] 31.1 mg/mg Normal [facility] Comment on above: Performed By: #### L IPID, CMP, T7, TSH #### [facility] [address] [address] [address] Ayleen Navarro TSHon 02-22-2022 TSH 0.964 uIU/mL Normal 0.358-3.740 [facility] Comment on above: Performed By: #### L IPID, CMP, T7, TSH #### [facility] [address] [address] [address] Ayleen Navarro GLYCOHEMOGLOBIN A1Con 2021 ADA RECOMMENDATION SEE BELOW Normal [facility] Comment on above: Result Comment: ADA RECOMMENDED LIMIT 4.0 - 6.0 ADA THERAPEUTIC TARGET < 7.0 ACTION SUGGESTED > 7.0 Performed By: #### A 1C ####[facility] [address] [place], [place] [address]Lk. Ayleen Navarro Glucose [Mass/Vol] 140 mg/dL Normal [facility] Comment on above: Performed By: #### A 1C ####[facility] [address] [place], [place] [address]Go. Ayleen Navarro HbA1c (Bld) [Mass fraction] 6.5 % Critically high 4.5-6.2 [facility] Comment on above: Performed By: #### A 1C ####[facility] [address] [place], [place] [address]Jl. Ayleen Navarro Encounters Encounter Date Encounter Type Care Provider Facility Start: 11-23-2022 Encounter for genera l adult medical examination without abnormal findings NEGIN HARDWICK [facility] Start: 11-19-2022 End: 11-20-2022 ambulatory NEGIN HARDWICK [...] Facility:[facility] Payers Date Payer Category Payer Unknown [id number] [id number] [id number] 1970 Unknown [id number] 1970 Unknown [id number] 1959 Self-pay 1959 Unknown [id number] 1959 Unknown Unknown [id number] Unknown [id number] [id number] Summary Purpose Family History No Family History [...] BE BASED ON THE PRIMARY CLINICAL RECORDS. [facility]. provides no warranty or guarantee of the accuracy or completeness of information in this document.
== END 2024-06-23 08:28 | disposition home or self-care (01) ==
LOC: CARD 08:27
PROVIDERS: PCP Nurse Practitioner Family; Visit Provider Nurse Practitioner Family
DX: R55 Syncope and collapse (principal)
CPT/HCPCS: 93242

== ENCOUNTER 2024-07-16 10:04 | Outpatient (OUT) | payer BC, SELFPAY ==
--- NOTE | 2024-07-16 | XR_ITS ---
The [address] [address] Patient Name: KEVIN CUNHA MRN: [id number] date: 1970 Sex: F Assigned Patient Location: Current Patient Location: Accession/Order Number: [id number] Exam Date: 07/16/2024 10:05 Report Date: 07/20/2024 08:58 At the request of: RICHARD HANCOCK Procedure: XR lumbar spine min 4V EXAMINATION: XR lumbar spine min 4V HISTORY: LUMBAR SPINE PAIN COMPARISON: CT lumbar spine 04/27/2024 FINDINGS: BONES: No fracture, spondylolisthesis, or change in alignment during flexion and extension. Mild degenerative facet arthropathy L4-5. Moderate degenerative facet arthropathy L5-S1. DISC SPACES: Mild narrowing L4-5. Marked narrowing L5-S1. PARASPINOUS: Negative. No paraspinous abnormality is seen. OTHER: Negative. XR/XR lumbar spine min 4V IMPRESSION: 1. L5-S1 marked degenerative disc disease and moderate degenerative facet arthropathy; not appreciably changed. Electronically authenticated by: GRIFFIN DELCID Date: 07/20/2024 08:58
--- OUTSIDE RECORDS SUMMARY | 2024-07-16 10:27 | XMS_ITS | CCD ---
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 Ayleen Navarro Glucose [Mass/Vol] 192 mg/dL Normal [facility] Comment on above: Performed By: #### D ATA1C #### [facility] [address] [address] [address] Ayleen Navarro HbA1c (Bld) [Mass fraction] 8.3 % Critically high 4.5-6.2 [facility] Comment on above: Performed By: #### D ATA1C #### [facility] [address] [address] [address] Ayleen Navarro GLYCOHEMOGLOBIN A1Con 2021 ADA RECOMMENDATION SEE BELOW Normal [facility] Comment on above: Result Comment: ADA RECOMMENDED LIMIT 4.0 - 6.0 ADA THERAPEUTIC TARGET < 7.0 ACTION SUGGESTED > 7.0 Performed By: #### D ATA1C ####[facility] [id number] [address]Dr. Ayleen Navarro Glucose [Mass/Vol] 180 mg/dL Normal [facility] Comment on above: Performed By: #### D ATA1C ####[facility] [address] [address]Dr. Ayleen Navarro HbA1c (Bld) [Mass fraction] 7.9 % Critically high 4.5-6.2 [facility] Comment on above: Performed By: #### D ATA1C ####[facility] [address] [address]Dr. Ayleen Navarro CBC AUTO DIFFon 06-13-2022 BASO # 0.1 103/ul Normal 0.0-0.1 [facility] Comment on above: Performed By: #### C BC #### [facility] [address] [address] [address] Ayleen Navarro Basophils/100 WBC (Bld) 0.7 % Normal 0.2-2.0 [facility] Comment on above: Performed By: #### C BC #### [facility] [address] [address] [address] Ayleen Navarro EO # 0.2 103/ul Normal 0.0-0.7 [facility] Comment on above: Performed By: #### C BC #### [facility] [address] [address] [address] Ayleen Navarro Eosinophils/100 WBC (Bld) 2.1 % Normal 0.9-7.0 [facility] Comment on above: Performed By: #### C BC #### [facility] [address] [place] [address] Dr. Ayleen Navarro Erythrocyte distribution width (RBC) [Ratio] 12.6 % Normal 11.0-15.0 [facility] Comment on above: Performed By: #### C BC #### [facility] [address] [address] [address] Ayleen Navarro Hematocrit (Bld) [Volume fraction] 42.8 % Normal 36.0-48.0 [facility] Comment on above: Performed By: #### C BC #### [facility] [address] [address] [address] Ayleen Navarro Hemoglobin (Bld) [Mass/Vol] 14.3 g/dL Normal 12.0-16.0 [facility] Comment on above: Performed By: #### C BC #### [facility] [address] [address] [address] Ayleen Navarro IG # 0.05 10e3/ul Critically high 0.00-0.03 [facility] Comment on above: Performed By: #### C BC #### [facility] [address] [address] [address] Ayleen Navarro IG % 0.5 % Normal 0.0-0.5 [facility] Comment on above: Performed By: #### C BC #### [facility] [address] [place] [address] Dr. Ayleen Navarro LYMPH # 3.4 103/ul Normal 1.2-3.8 [facility] Comment on above: Performed By: #### C BC #### [facility] [address] [place] [address] Dr. Ayleen Navarro Lymphocytes/100 WBC (Bld) 31.5 % Normal 20.5-60.0 [facility] Comment on above: Performed By: #### C BC #### [facility] [address] [place] [address] Dr. Ayleen Navarro MANUAL DIFF REQ NO Normal [facility] Comment on above: Performed By: #### C BC #### [facility] [address] [place] [address] Dr. Ayleen Navarro MCH (RBC) [Entitic mass] 29.3 pg Normal 26.7-34.0 [facility] Comment on above: Performed By: #### C BC #### [facility] [address] [place] [address] Dr. Ayleen Navarro MCHC (RBC) [Mass/Vol] 33.4 g/dL Normal 29.9-35.2 [facility] Comment on above: Performed By: #### C BC #### [facility] [address] [place] [address] Dr. Ayleen Navarro MCV (RBC) [Entitic vol] 87.7 fL Normal 81.0-99.0 [facility] Comment on above: Performed By: #### C BC #### [facility] [address] [place] [address] Dr. Ayleen Navarro MONO # 0.6 103/ul Normal 0.3-0.8 [facility] Comment on above: Performed By: #### C BC #### [facility] [address] [place] [address] Dr. Ayleen Navarro Monocytes/100 WBC (Bld) 5.5 % Normal 1.7-12.0 [facility] Comment on above: Performed By: #### C BC #### [facility] [address] [place] [address] Dr. Ayleen Navarro NEUT # 6.4 103/ul Normal 1.4-6.5 [facility] Comment on above: Performed By: #### C BC #### [facility] [address] [place] [address] Dr. Ayleen Navarro Neutrophils/100 WBC (Bld) 59.7 % Normal 43.0-75.0 [facility] Comment on above: Performed By: #### C BC #### [facility] [address] [place] [address] Dr. Ayleen Navarro Platelet mean volume (Bld) [Entitic vol] 10.9 fL Normal 9.5-13.5 [facility] Comment on above: Performed By: #### C BC #### [facility] [address] [place] [address] Dr. Ayleen Navarro PLT 229 103/ul Normal 150-450 [facility] Comment on above: Performed By: #### C BC #### [facility] [address] [place] [address] Dr. Ayleen Navarro RBC 4.88 106/ul Normal 4.20-5.40 [facility] Comment on above: Performed By: #### C BC #### [facility] [address] [place] [address] Dr. Ayleen Navarro WBC 10.7 103/ul Normal 4.0-11.0 [facility] Comment on above: Performed By: #### C BC #### [facility] [address] [place] [address] Dr. Ayleen Navarro PROF 14(COMP METB)on 022 Albumin [Mass/Vol] 3.2 g/dL Critically low 3.4-5.0 [facility] Comment on above: Performed By: #### H BENI, CMP #### [facility] [address] [place] [address] Dr. Ayleen Navarro Albumin/Globulin [Mass ratio] 0.8 {ratio} Normal [facility] Comment on above: Performed By: #### H BENI, CMP #### [facility] [address] [address] [address] Ayleen Navarro ALP [Catalytic activity/Vol] 76 U/L Normal 46-116 [facility] Comment on above: Performed By: #### H STROPN, CMP #### [facility] [address] [address] [address] Ayleen Navarro ALT [Catalytic activity/Vol] 24 U/L Normal 14-59 [facility] Comment on above: Performed By: #### H STROPN, CMP #### [facility] [address] [address] [address] Ayleen Navarro Anion gap [Moles/Vol] 8.5 mmol/L Normal [facility] Comment on above: Performed By: #### H STROPN, CMP #### [facility] [address] [address] [address] Ayleen Navarro AST [Catalytic activity/Vol] 4 U/L Critically low 15-37 [facility] Comment on above: Performed By: #### H STROPN, CMP #### [facility] [address] [address] [address] Ayleen Navarro Bilirubin [Mass/Vol] 0.2 mg/dL Normal 0.2-1.0 [facility] Comment on above: Performed By: #### H STROPN, CMP #### [facility] [address] [address] [address] Ayleen Navarro Calcium [Mass/Vol] 8.8 mg/dL Normal 8.5-10.1 [facility] Comment on above: Performed By: #### H STROPN, CMP #### [facility] [address] [address] [address] Ayleen Navarro Chloride [Moles/Vol] 99 mmol/L Normal 98-107 [facility] Comment on above: Performed By: #### H STROPN, CMP #### [facility] [address] [address] [address] Ayleen Navarro CO2 [Moles/Vol] 29.9 mmol/L Normal 21.0-32.0 [facility] Comment on above: Performed By: #### H STROPN, CMP #### [facility] [address] [address] [address] Ayleen Navarro Creatinine [Mass/Vol] 0.88 mg/dL Normal 0.55-1.02 [facility] Comment on above: Performed By: #### H STROPN, CMP #### [facility] [address] [address] [address] Ayleen Navarro EGFR-AF PORTUGUESE >60 Normal >=60 [facility] Comment on above: Performed By: #### H STROPN, CMP #### [facility] [address] [address] [address] Ayleen Navarro EGFR-NON AF PORTUGUESE >60 Normal >=60 [facility] Comment on above: Performed By: #### H STROPN, CMP #### [facility] [address] [address] [address] Ayleen Navarro Globulin (S) [Mass/Vol] 3.9 g/dL Normal [facility] Comment on above: Performed By: #### H STROPN, CMP #### [facility] [address] [address] [address] Ayleen Navarro Glucose [Mass/Vol] 245 mg/dL Critically high 74-106 [facility] Comment on above: Performed By: #### H STROPN, CMP #### [facility] [address] [address] [address] Ayleen Navarro Potassium [Moles/Vol] 3.4 mmol/L Critically low 3.5-5.1 [facility] Comment on above: Performed By: #### H STROPN, CMP #### [facility] [address] [address] [address] Ayleen Navarro Protein [Mass/Vol] 7.1 g/dL Normal 6.4-8.2 [facility] Comment on above: Performed By: #### H STROPN, CMP #### [facility] [address] [address] [address] Ayleen Navarro Sodium [Moles/Vol] 134 mmol/L Critically low 136-145 [place] Comment on above: Performed By: #### H STROPN, CMP #### [facility] [address] [place], [place] [address] Dr. Ayleen Navarro Urea nitrogen [Mass/Vol] 18.0 mg/dL Normal 7.0-18.0 [facility] Comment on above: Performed By: #### H STROPN, CMP #### [facility] [address] [place], [place] [address] Dr. Ayleen Navarro Urea nitrogen/Creatinine [Mass ratio] 20.5 mg/mg Normal [facility] Comment on above: Performed By: #### H STROPN, CMP #### [facility] [address] [place], [place] [address] Dr. Ayleen Navarro TROPONIN, HIGH SENSITIVITYon 06-13-2022 HSTROP 8.6 pg/mL Normal 4.0-51.3 [facility] Comment on above: Result Comment: CUT- OFF POINTS HAVE BEEN ESTABLISHED BASED ON THE FOURTH UNIVERSAL DEFINITIONS OF MYOCARDIAL INFARCTION. THE UPPER REFERENCE LIMIT (URL) OF TROPONIN, DEFINED THE 99TH PERCENTILE OF cTnI DISTRIBUTION IN A REFERENCE POPULATION, HAS BEEN CONFIRMED THE DECISION THRESHOLD FOR RI DIAGNOSIS. Performed By: #### H STROPN ####[facility] [address] [place], [place] [address]ZwDr. Ayleen Navarro HSTROP <4.0 Normal 4.0-51.3 [facility] Comment on above: Result Comment: CUT- OFF POINTS HAVE BEEN ESTABLISHED BASED ON THE FOURTH UNIVERSAL DEFINITIONS OF MYOCARDIAL INFARCTION. THE UPPER REFERENCE LIMIT (URL) OF TROPONIN, DEFINED THE 99TH PERCENTILE OF cTnI DISTRIBUTION IN A REFERENCE POPULATION, HAS BEEN CONFIRMED THE DECISION THRESHOLD FOR RI DIAGNOSIS. Performed By: #### H STROPN, CMP #### [facility] [address] [place], [place] [address] Dr. Ayleen Navarro XR CHEST 1 Von [...] Date: 2022-06-13 04:44 Normal [facility] INSULINon 02-23-2022 Insulin 22.9 uIU/mL Normal 2.6-24.9 [facility] Comment on above: Performed By: #### I NSULIN #### [facility] [address] [address] [address] Ayleen Navarro CBC AUTO DIFFon 02-22-2022 BASO # 0.1 103/ul Normal 0.0-0.1 [facility] Comment on above: Performed By: #### C BC ####[facility] [address] [address]Dr. Ayleen Navarro Basophils/100 WBC (Bld) 0.9 % Normal 0.2-2.0 [facility] Comment on above: Performed By: #### C BC ####[facility] [address] [address]Dr. Ayleen Navarro EO # 0.2 103/ul Normal 0.0-0.7 [facility] Comment on above: Performed By: #### C BC ####[facility] [address] [address]Dr. Ayleen Navarro Eosinophils/100 WBC (Bld) 2.6 % Normal 0.9-7.0 [facility] Comment on above: Performed By: #### C BC ####[facility] [address] [address]Dr. Ayleen Navarro Erythrocyte distribution width (RBC) [Ratio] 13.3 % Normal 11.0-15.0 [facility] Comment on above: Performed By: #### C BC ####[facility] [address] [address]Dr. Ayleen Navarro Hematocrit (Bld) [Volume fraction] 42.8 % Normal 36.0-48.0 [facility] Comment on above: Performed By: #### C BC ####[facility] [address] [address]Dr. Ayleen Navarro Hemoglobin (Bld) [Mass/Vol] 14.3 g/dL Normal 12.0-16.0 [facility] Comment on above: Performed By: #### C BC ####[facility] [address] [address]DrMiky Navarro IG # 0.05 10e3/ul Critically high 0.00-0.03 [facility] Comment on above: Performed By: #### C BC ####[facility] [address] [address]DrMiky Navarro IG % 0.5 % Normal 0.0-0.5 [facility] Comment on above: Performed By: #### C BC ####[facility] [address] [place], [place] [address]DrMiky Navarro LYMPH # 3.0 103/ul Normal 1.2-3.8 [facility] Comment on above: Performed By: #### C BC ####[facility] [address] [place], [place] [address]DrMiky Navarro Lymphocytes/100 WBC (Bld) 32.4 % Normal 20.5-60.0 [facility] Comment on above: Performed By: #### C BC ####[facility] [address] [place], [place] [address]DrMiky Navarro MANUAL DIFF REQ NO Normal [facility] Comment on above: Performed By: #### C BC ####[facility] [address] [place], [place] [address]DrMiky Navarro MCH (RBC) [Entitic mass] 29.5 pg Normal 26.7-34.0 [facility] Comment on above: Performed By: #### C BC ####[facility] [address] [place], [place] [address]DrMiky Navarro MCHC (RBC) [Mass/Vol] 33.4 g/dL Normal 29.9-35.2 [facility] Comment on above: Performed By: #### C BC ####[facility] [address] [place], [place] [address]DrMiky Navarro MCV (RBC) [Entitic vol] 88.2 fL Normal 81.0-99.0 [facility] Comment on above: Performed By: #### C BC ####[facility] [address] [place], [place] [address]Dr. Ayleen Navarro MONO # 0.6 103/ul Normal 0.3-0.8 [facility] Comment on above: Performed By: #### C BC ####[facility] [address] [place], [place] [address]Dr. Ayleen Ramon Monocytes/100 WBC (Bld) 6.7 % Normal 1.7-12.0 [facility] Comment on above: Performed By: #### C BC ####[facility] [address] [place], [place] [address]Dr. Ayleen Navarro NEUT # 5.3 103/ul Normal 1.4-6.5 [facility] Comment on above: Performed By: #### C BC ####[facility] [address] [place], [place] [address]Dr. Ayleen Ramon Neutrophils/100 WBC (Bld) 56.9 % Normal 43.0-75.0 [facility] Comment on above: Performed By: #### C BC ####[facility] [address] [place], [place] [address]Dr. Ayleen Navarro Platelet mean volume (Bld) [Entitic vol] 11.0 fL Normal 9.5-13.5 [facility] Comment on above: Performed By: #### C BC ####[facility] [address] [place], [place] [address]Dr. Ayleen Ramon PLT 239 103/ul Normal 150-450 [facility] Comment on above: Performed By: #### C BC ####[facility] [address] [place], [place] [address]Dr. Ayleen Ramon RBC 4.85 106/ul Normal 4.20-5.40 [facility] Comment on above: Performed By: #### C BC ####[facility] [address] [place], [place] [address]Dr. Ayleen Navarro WBC 9.3 103/ul Normal 4.0-11.0 [facility] Comment on above: Performed By: #### C BC ####[facility] [address] [address]Dr. Ayleen Navarro FREE THYROXINE INDEX T7on FTI 3.36 Normal 1.30-4.50 [facility] Comment on above: Performed By: #### L IPID, CMP, T7, TSH #### [facility] [address] [address] [address] Ayleen Navarro T3U 32.0 % Normal 30.0-39.0 [facility] Comment on above: Performed By: #### L IPID, CMP, T7, TSH #### [facility] [address] [address] [address] Ayleen Navarro T4 [Mass/Vol] 10.50 ug/dL Normal 4.80-13.90 [facility] Comment on above: Performed By: #### L IPID, CMP, T7, TSH #### [facility] [address] [address] [address] Ayleen Navarro IRONon 02-22-2022 Iron [Mass/Vol] 117.0 ug/dL Normal 50.0-170.0 [facility] Comment on above: Performed By: #### I FEDERICO ####[facility] [address] [address]Dr. Ayleen Navarro LIPID PROFILEon 02-22-2022 CHOL-HDL RATIO NORM SEE BELOW Normal [facility] Comment on above: Result Comment: 3.3 - 4.4 LOW RISK 4.4 - 7.1 AVERAGE RISK 7.1 - 11.0 MODERATE RISK >11.0 HIGH RISK Performed By: #### L IPID, CMP, T7, TSH #### [facility] [address] [address] [address] Ayleen Navarro Cholesterol [Mass/Vol] 161 mg/dL Normal <=200 [facility] Comment on above: Performed By: #### L IPID, CMP, T7, TSH #### [facility] [address] [address] [address] Ayleen Navarro Cholesterol in HDL [Mass/Vol] 42 mg/dL Normal 40-60 [facility] Comment on above: Performed By: #### L IPID, CMP, T7, TSH #### [facility] [address] [address] [address] Ayleen Navarro Cholesterol in LDL [Mass/Vol] 98.4 mg/dL Normal [facility] Comment on above: Performed By: #### L IPID, CMP, T7, TSH #### [facility] [address] [address] [address] Ayleen Navarro Cholesterol.total/Cho lesterol in HDL [Mass ratio] 3.8 {ratio} Normal [facility] Comment on above: Performed By: #### L IPID, CMP, T7, TSH #### [facility] [address] [address] [address] Ayleen Navarro HDL NORMAL > or = 60 mg/dl - LO W CARDIOVASCULAR RISK <40 mg/dl - HIGH CARDIOVASCULAR RISK Normal [facility] Comment on above: Performed By: #### L IPID, CMP, T7, TSH #### [facility] [address] [address] [address] Ayleen Navarro LDL CALC NORMAL SEE BELOW Normal [facility] Comment on above: Result Comment: <100 mg/dl OPTIMAL 100 - 129 mg/dl NEAR OR ABOVE OPTIMAL 130 - 159 mg/dl BORDERLINE HIGH 160 - 189 mg/dl HIGH >190 mg/dl VERY HIGH Performed By: #### L IPID, CMP, T7, TSH #### [facility] [address] [address] [address] Ayleen Navarro Triglyceride [Mass/Vol] 103 mg/dL Normal <=150 [facility] Comment on above: Performed By: #### L IPID, CMP, T7, TSH #### [facility] [address] [address] [address] Ayleen Navarro VLDL CALC 20.6 mg/dL Normal [facility] Comment on above: Performed By: #### L IPID, CMP, T7, TSH #### [facility] [address] [address] [address] Ayleen Navarro PROF 14(COMP METB)on 022 Albumin [Mass/Vol] 3.4 g/dL Normal 3.4-5.0 [facility] Comment on above: Performed By: #### L IPID, CMP, T7, TSH #### [facility] [address] [address] [address] yAleen Navarro Albumin/Globulin [Mass ratio] 0.9 {ratio} Normal [facility] Comment on above: Performed By: #### L IPID, CMP, T7, TSH #### [facility] [address] [place] [address] Dr. Ayleen Navarro ALP [Catalytic activity/Vol] 71 U/L Normal 46-116 [facility] Comment on above: Performed By: #### L IPID, CMP, T7, TSH #### [facility] [address] [place] [address] Dr. Ayleen Navarro ALT [Catalytic activity/Vol] 25 U/L Normal 14-59 [facility] Comment on above: Performed By: #### L IPID, CMP, T7, TSH #### [facility] [address] [address] [address] Ayleen Navarro Anion gap [Moles/Vol] 10.1 mmol/L Normal [place] Comment on above: Performed By: #### L IPID, CMP, T7, TSH #### [facility] [address] [place] [address] Dr. Ayleen Navarro AST [Catalytic activity/Vol] 11 U/L Critically low 15-37 [facility] Comment on above: Performed By: #### L IPID, CMP, T7, TSH #### [facility] [address] [place] [address] Dr. Ayleen Navarro Bilirubin [Mass/Vol] 0.5 mg/dL Normal 0.2-1.0 [facility] Comment on above: Performed By: #### L IPID, CMP, T7, TSH #### [facility] [address] [place] [address] Dr. Ayleen Navarro Calcium [Mass/Vol] 8.8 mg/dL Normal 8.5-10.1 [facility] Comment on above: Performed By: #### L IPID, CMP, T7, TSH #### [facility] [address] [address] [address] Ayleen Navarro Chloride [Moles/Vol] 100 mmol/L Normal 98-107 [facility] Comment on above: Performed By: #### L IPID, CMP, T7, TSH #### [facility] [address] [address] [address] Ayleen Navarro CO2 [Moles/Vol] 29.5 mmol/L Normal 21.0-32.0 [facility] Comment on above: Performed By: #### L IPID, CMP, T7, TSH #### [facility] [address] [place] [address] Dr. Ayleen Navarro Creatinine [Mass/Vol] 0.61 mg/dL Normal 0.55-1.02 [facility] Comment on above: Performed By: #### L IPID, CMP, T7, TSH #### [facility] [address] [address] [address] Ayleen Navarro EGFR-AF PORTUGUESE >60 Normal >=60 [facility] Comment on above: Performed By: #### L IPID, CMP, T7, TSH #### [facility] [address] [place] [address] Dr. Ayleen Navarro EGFR-NON AF PORTUGUESE >60 Normal >=60 [facility] Comment on above: Performed By: #### L IPID, CMP, T7, TSH #### [facility] [address] [address] [address] Ayleen Navarro Globulin (S) [Mass/Vol] 3.9 g/dL Normal [facility] Comment on above: Performed By: #### L IPID, CMP, T7, TSH #### [facility] [address] [place] [address] Dr. Ayleen Navarro Glucose [Mass/Vol] 119 mg/dL Critically high 74-106 [facility] Comment on above: Performed By: #### L IPID, CMP, T7, TSH #### [facility] [address] [place] [address] Dr. Ayleen Navarro Potassium [Moles/Vol] 3.6 mmol/L Normal 3.5-5.1 [facility] Comment on above: Performed By: #### L IPID, CMP, T7, TSH #### [facility] [address] [address] [address] Ayleen Navarro Protein [Mass/Vol] 7.3 g/dL Normal 6.4-8.2 [facility] Comment on above: Performed By: #### L IPID, CMP, T7, TSH #### [facility] [address] [address] [address] Ayleen Navarro Sodium [Moles/Vol] 136 mmol/L Normal 136-145 [facility] Comment on above: Performed By: #### L IPID, CMP, T7, TSH #### [facility] [address] [address] [address] Ayleen Navarro Urea nitrogen [Mass/Vol] 19.0 mg/dL Critically high 7.0-18.0 [facility] Comment on above: Performed By: #### L IPID, CMP, T7, TSH #### [facility] [address] [address] [address] Ayleen Navarro Urea nitrogen/Creatinine [Mass ratio] 31.1 mg/mg Normal [facility] Comment on above: Performed By: #### L IPID, CMP, T7, TSH #### [facility] [address] [address] [address] Ayleen Navarro TSHon 02-22-2022 TSH 0.964 uIU/mL Normal 0.358-3.740 [facility] Comment on above: Performed By: #### L IPID, CMP, T7, TSH #### [facility] [address] [address] [address] Ayleen Navarro GLYCOHEMOGLOBIN A1Con 2021 ADA RECOMMENDATION SEE BELOW Normal [facility] Comment on above: Result Comment: ADA RECOMMENDED LIMIT 4.0 - 6.0 ADA THERAPEUTIC TARGET < 7.0 ACTION SUGGESTED > 7.0 Performed By: #### A 1C ####[facility] [id number] [place], [place] [address]Ij. Ayleen Navarro Glucose [Mass/Vol] 140 mg/dL Normal [facility] Comment on above: Performed By: #### A 1C ####[facility] [address] [place], [place] [address]Jc. Ayleen Navarro HbA1c (Bld) [Mass fraction] 6.5 % Critically high 4.5-6.2 [facility] Comment on above: Performed By: #### A 1C ####[facility] [id number] [place], [place] [address]Ox. Ayleen Navarro Encounters Encounter Date Encounter Type Care Provider Facility Start: 11-23-2022 Encounter for genera l adult medical examination without abnormal findings NEGIN HARDWICK [facility] Start: 11-19-2022 End: 11-20-2022 ambulatory NEGIN HARDWICK [...] Facility:[facility] Payers Date Payer Category Payer Unknown [id number] 10.17.83 [id number] 1970 Unknown [id number] 1970 Unknown [id number] 1960 Self-pay 1960 Unknown [id number] 1960 Unknown Unknown [id number] Unknown [id number] 10.17.84 [id number] Summary Purpose Family History No Family History [...] BE BASED ON THE PRIMARY CLINICAL RECORDS. [employer] [facility]. provides no warranty or guarantee of the accuracy or completeness of information in this document.
== END 2024-07-16 10:05 | disposition home or self-care (01) ==
LOC: EC 10:04
PROVIDERS: Visit Provider Orthopaedic Surgery Orthopaedic Surgery of the Spine
DX: M54.50 Low back pain, unspecified (principal); M51.369 Other intervertebral disc degeneration, lumbar region without mention of lumbar back pain or lower extremity pain
CPT/HCPCS: 72110

== ENCOUNTER 2024-07-20 09:54 | Outpatient (RCR) | payer BC, SELFPAY | END 2024-08-20 13:20 | disposition home or self-care (01) | LOC: PT 09:54 | PROVIDERS: Visit Provider Orthopaedic Surgery Orthopaedic Surgery of the Spine | DX: M54.50 Low back pain, unspecified (principal); M25.552 Pain in left hip | CPT/HCPCS: 97010; 97014; 97035; 97110; 97140; 97161 ==

== ENCOUNTER 2024-08-09 12:18 | Outpatient (OUT) | payer BC, SELFPAY ==
--- NOTE | 2024-08-09 13:39 | P.CN_ITS ---
Consult Note: HPI Data of Consult Patient: new to practice Consult date: 08/09/24 Requesting Physician: Philipp Mohamud MD Primary Care Provider: Non-Staff Physician, Consult Narrative Reason for consult: left knee pain Narrative: 53yof who presents for evaluation. longstanding history of left knee pain >6 m onths. currently continuing in PT, which helps somewhat. imaging shows moderate to severe arthritis of left knee. lumbar mri also reviewed, shows multilevel spondylosis and stenosis, worst at l5-s1. has used otc pain meds, with minimal benefit. denies adverse med side effects. 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) Surgical History Tubal ligation status ?Z98.51 - Tubal ligation status (ICD-10) H/O arthroscopic knee surgery ?Z98.890 - Other specified postprocedural states (ICD-10) Social History Smoking status: Heavy tobacco smoker Little interest or pleasure in doing things: not at all Feeling down, depressed, or hopeless: not at all Meds Home Medications and Allergies Home Medications ?Medication ?Instructions ?Recorded ?Confirmed ?Type atorvastatin 10 mg tablet 10 mg PO DAILY 02/20/23 04/27/24 History chlorthalidone 25 mg tablet 25 mg PO DAILY 02/20/23 04/27/24 History glipizide 10 mg tablet 10 mg PO BID 02/20/23 04/27/24 History lisinopril 10 mg tablet 10 mg PO DAILY 02/20/23 04/27/24 History pantoprazole 40 mg tablet,delayed 40 mg PO DAILY 02/20/23 04/27/24 History release ibuprofen 600 mg tablet 600 mg PO Q8H PRN pain #20 tabs 04/27/24 Rx lidocaine 5 % topical patch 1 patch topical DAILY #15 ea 04/27/24 Rx (Lidoderm) oxycodone-acetaminophen 5 mg-325 1 tab PO Q8H 3 days #9 tabs 04/27/24 Rx mg tablet (Percocet) tizanidine 4 mg capsule 4 mg PO BID PRN muscle spasticity 04/27/24 Rx #14 caps oxycodone-acetaminophen 5 mg-325 1 tab PO Q6H PRN pain 3 days #12 05/30/24 Rx mg tablet (Percocet) tabs hydrocodone 5 mg-acetaminophen 325 1 tab PO Q6H PRN pain 5 days #20 06/19/24 Rx mg tablet tabs penicillin V potassium 250 mg 250 mg PO QID 10 days #40 tabs 06/19/24 Rx tablet Allergies Allergy/AdvReac Type Severity Reaction Status Date / Time prednisone AdvReac Vomiting Verified 05/30/24 05:46 Exam Narrative Exam Narrative: Psych-alert and oriented x 3.? Attentive and appropriate, constitutionally normal, displays normal mood and affect per situation.? There are no obvious deficits in memory, reasoning, or intellect. Extremities-lower extremities are warm with minimal edema and palpable pulses. Knee-examination of the left knee reveals tenderness to palpation over the superior, inferior, lateral, and medial aspect of the knee.? Some swelling is noted without erythema. Pain is elicited with flexion and extension of the knee both actively and passively.? Some grinding is noted with these motions.? There is no notable ligamental laxity or instability.? Coordination remains intact.? Gait remains antalgic. Assessment and Plan Assessment and Plan (1) Unilateral primary osteoarthritis, left knee: Plan 53yof who presents for evaluation. longstanding left knee pain. failed conservative measures, as noted. imaging reviewed, as noted. given symptoms and imaging, prudent to attempt left knee injection. she is in agreement. meds reviewed, no changes. agreed to take her off work next week. follow up in 6 weeks.
== END 2024-08-09 12:19 | disposition home or self-care (01) ==
LOC: PM 12:18
PROVIDERS: Visit Provider Anesthesiology
DX: M17.12 Unilateral primary osteoarthritis, left knee (principal)
CPT/HCPCS: 20610; J0665; J3301

== ENCOUNTER 2024-08-23 08:33 | Outpatient (OUT) | payer BC, SELFPAY ==
--- NOTE | 2024-08-23 | PCN_ITS ---
CARDIAC STRESS TEST Requesting Physician: Procedure Date: 08/23/2024 INDICATION: Syncope, abnormal EKG. METHODS: After risks, benefits and alternatives were explained, written informed consented was obtained. The patient was brought to the stress lab in a resting and fasting state. She was connected to the appropriate hemodynamic and electrocardiographic monitoring. She underwent a Lexiscan pharmacological stress test. Technetium Cardiolite was injected per protocol. She was transferred to the nuclear lab for imaging. There were no complications. STRESS TEST INFORMATION: Lexiscan 0.4 mg was infused intravenously. The patient?s resting heart rate was 62 beats per minute, increasing to a maximum of 81 beats per minute. Resting blood pressure was 129/74, with a maximum blood pressure of 139/76. The patient had headache and nausea that resolved after Lexiscan was given by 4 minutes. There was no chest pain. ELECTROCARDIOGRAPHY: Rest EKG: Sinus rhythm, poor R-wave progression, abnormal EKG. During infusion and recovery: No significant ST-T wave changes noted. No significant arrhythmias seen. FINAL IMPRESSIONS: 1. No ischemic EKG changes seen on Lexiscan Cardiolite stress test. 2. Nuclear images are to be read, interpreted and reported in a separate dictation. [facility]
--- NOTE | 2024-08-23 | NM_ITS ---
Patient Name: KEVIN CUNHA MR#: [id number] : 1970 Exam Date: 08/23/2024 Ordering Doctor: ALONDRA NICHOLS M.D. RADIOLOGY REPORT PROCEDURE: NM ZEYNEP PERF SPECT REST STR COMPARISON: None. INDICATIONS: SYNCOPE AND COLLAPSE TECHNIQUE: Exam Description: Stress/Rest one day protocol gated SPECT Rest Imagin.4 mCi Tc-99m Cardiolite IV on 08/23/2024 Stress Imaging 30.2 mCi Tc-99m Cardiolite IV on 08/23/2024 Exercise Protocol: 0.4 mg Lexiscan given IV Heart Rate (bpm): Rest: 62 Max: 81 PMHR: 48 Blood Pressure: Rest: 129/74 Max: 139/76 Symptoms: Rest and peak stress ECG findings were pending and the exercise portion of the study was pending per attending physician Dr. LOPEZ . For more details please see separate cardiac stress test report. FINDINGS: QUALITY OF STUDY: Excellent. PERFUSION DEFECT: LOCATION: Basal anterior. Mid-anterior. Apical anterior. SIZE: Medium (3-4 segments). SEVERITY: Moderate. TYPE: Persistent. WALL MOTION: Normal. LV SIZE: Normal. 93 mL. TID / TCD: None; 0.8 LVEF: Normal. Calculated EF 72%. SUMMARY: Myocardial perfusion imaging study has ABNORMAL findings. CONCLUSION: 1. No acute or reversible ischemia. 2. Decreased radiotracer uptake within the anterior wall during stress and rest imaging; breast attenuation artifact versus remote infarction. 3. Normal wall motion, left ventricle volume common ejection fraction. Dictated by: Jose Prieto M.D. on 08/26/2024 at 08:56 Approved by: Jose Prieto M.D. on 08/26/2024 at 09:04
--- NOTE | 2024-08-23 08:30 | CA_ITS ---
Patient Name: KEVIN CUNHA MR#: [id number] : 1970 Exam Date: 08/23/2024 Ordering Doctor: ALONDRA NICHOLS M.D. ECHOCARDIOGRAM REPORT PROCEDURE: CA ECHO DOPPLER COMPLETE INDICATIONS: Syncope, abnormal ECG, hypertension, diabetes COMPARISON: None. DESCRIPTION: COMPLETE ECHOCARDIOGRAM Real-time transthoracic echocardiography with 2D, M-mode, spectral and color flow Doppler performed. QUALITY: Technical quality was good. LEFT VENTRICLE: Normal chamber size. Left ventricular wall thickness is upper normal limits. LV EF: Global left ventricular systolic function is hyperdynamic; visually estimated ejection fraction 65 to 70%. No wall motion abnormalities. DIASTOLIC: Normal diastolic function. ATRIAL SEPTUM: Visually appears intact, LEFT ATRIUM: Normal chamber size. RIGHT ATRIUM: Normal chamber size. RIGHT VENTRICLE: Normal chamber size. Normal right ventricular systolic function. TRICUSPID VALVE: Normal mobility and thickness. No stenosis with trivial regurgitation. No evidence of pulmonary hypertension. RVSP 26 mmHg MITRAL VALVE: Normal mobility and thickness. No evidence of mitral valve stenosis. There is no mitral annular calcification. No mitral regurgitation. AORTIC VALVE: Normal trileaflet appearance. No visible sclerosis. Normal leaflet mobility. No evidence of aortic valve stenosis. No aortic regurgitation. AORTIC ROOT: Normal diameter and appearance. PULMONIC VALVE: Normal thickness and mobility. No stenosis. No regurgitation. PERICARDIUM: No evidence of pericardial effusion. IVC: Collapses with inspirations. IVC is normal in size. CONCLUSION: 1. Global left ventricular systolic function is hyperdynamic; visually estimated ejection fraction 65 to 70% 2. Normal right ventricular size and systolic function 3. Left ventricular wall thickness is upper normal limits 4. Normal diastolic function 5. The left atrium is normal in size 6. No significant valvular abnormalities Adult Echocardiography Procedure Report Left Ventricle LVEDD (3.7 - 5.6 cm): 4.21 cm LVESD (2.2 - 4.0 cm): 3.80 cm LVIVS thickness (0.6 - 1.2 cm): 1.07 cm LVPW thickness (0.5 - 1.0 cm): 1.01 cm e': 0.10 m/s E - e': 7.18 LVOT Max Gradient: 2.85 mm[Hg] LVOT Area (cm2): 0.84 m/s Peak Velocity (LVOT): 0.84 m/s Mean Velocity (LVOT): 0.54 m/s LVOT Diameter 1.87 cm Left Atrium LA Volume Index (2D A2C): 21.02 ml/m2 Left Atrium Systolic Dimension: 3.53 cm Mitral Valve MV E to A Ratio: 0.96 Mitral Valve A-Wave Peak Velocity: 0.77 m/s Mitral Valve E-Wave Peak Velocity: 0.73 m/s Right Ventricle Aorta AO Root Diam: 3.17 cm Aortic Valve AoV Area (Peak Aniket): 2.04 cm2, 2.04 cm2 AoV Area (VTI): 2.02 cm2, 2.02 cm2 Peak Velocity(Antegrade Flow): 1.14 m/s Peak Gradient(Antegrade Flow): 5.15 mm[Hg] Mean Velocity(Antegrade Flow): 0.73 m/s Mean Gradient(Antegrade Flow): 2.52 mm[Hg] Velocity Time Integral: 23.13 cm Tricuspid Valve Peak Velocity (Regurgitant Flow): 2.37 m/s Pulmonic Valve Mean Gradient: 1.60 mm[Hg] Mean Velocity: 0.58 m/s Peak Velocity: 0.92 m/s, 0.93 m/s Peak Gradient: 3.43 mm[Hg], 3.37 mm[Hg] Right Atrium Right Atrium Systolic Pressure: 38.33 ml, 38.33 ml Dictated by: Bita Feldman M.D. on 08/23/2024 at 12:29 Approved by: Bita Feldman M.D. on 08/23/2024 at 12:31
[2024-08-23] MEDS: REGADENOSON 0.4 MG/5 ML SYRINGE IV (10:04)
== END 2024-08-23 08:34 | disposition home or self-care (01) ==
LOC: NM 08:33
PROVIDERS: Visit Provider Internal Medicine Cardiovascular Disease
DX: R55 Syncope and collapse (principal); R94.31 Abnormal electrocardiogram [ECG] [EKG]
CPT/HCPCS: 78452; 93017; 93306; A9500; J2785

== ENCOUNTER 2024-09-03 10:26 | Outpatient (REF) | payer BC, SELFPAY ==
--- OUTSIDE RECORDS SUMMARY | 2024-09-03 10:31 | XMS_ITS | CCD ---
Author Organization [facility] Care Team Providers Care Mine Analyst Name Role Phone MAGDA SÁNCHEZ Admitting Unavailable RONEN, MAGDA Attending Unavailable RONEN, MAGDA Primary Care Unavailable RONEN, MAGDA Consulting Unavailable RONEN, MAGDA Primary Care Unavailable MARKER ., DR HODGE Consulting Unavailable MARKER ., DR HODGE Admitting Unavailable MARKER ., DR HODGE Attending Unavailable GONZALEZMATT Consulting Unavailable REQUEST, NONE LISTED Admitting Unavaila ble REQUEST, NONE LISTED Attending Unavaila ble RONEN, MAGDA Primary Care Unavailable REQUEST, NONE LISTED Consulting Unavaila ble RONEN, MAGDA Admitting Unavailable RONEN, MAGDA Attending Unavailable RONEN, MAGDA Primary Care Unavailable REQUEST, NONE LISTED Consulting Unavaila ble RONEN, MAGDA Admitting Unavailable RONEN, MAGDA Attending Unavailable RONEN, MAGDA Primary Care Unavailable RONEN, MAGDA Consulting Unavailable ALONDRA NICHOLS Attending Unavailable Cade CASON, Philipp Waddell Attending Unavailable Allergies Allergy Classification Reported Allergen(s) Allergy Type Date of Onset Reaction(s) Facility (1 source) predniSONE Drug Allergy 12-09-2020 [facility] Repository Problems Active Problems Problem Classification Problem Date Documented Date Episodic/Chronic Diabetes mellitus without complication (5 sources) Type 2 diabetes mellitus without complications; Translations: [TYPE 2 DM WITHOUT COMPLICATIONS] Onset: 02-12-2022 Chronic Essential hypertension (1 source) Essential (primary) hypertension; Translations: [ESSENTIAL PRIMARY HYPERTENSION] Onset: 06-14-2022 Chronic Other screening for suspected conditions (not mental disorders or infectious disease) (2 sources) Abnormal electrocardiogram [ECG] [EKG]; Translations: [Abnormal electrocardiogram (ECG) (EKG)] Onset: 08-03-2024 Episodic Substance-related disorders (1 source) Nicotine dependence, cigarettes, uncomplicated; Translations: [NICOTINE DEPEND CIGARETTES UNCOMP] Onset: 06-14-2022 Chronic Syncope (2 sources) Syncope and collapse; Translations: [Syncope and collapse] Onset: 08-03-2024 Episodic Past or Other Problems Problem Classification Problem Date Documented Da te Episodic/Chronic Diabetes mellitus without complication (1 source) Other abnormal glucose; Translations: [OTHER ABNORMAL GLUCOSE] Onset: 02-14-2022 Episodic Other aftercare (1 source) Other alf (current) drug therapy; Translations: [OTH ALF CURRENT DRUG THERAPY] Onset: 06-14-2022 Episodic Other non-traumatic joint disorders (4 sources) Pain in left shoulder; Translations: [PAIN IN LEFT SHOULDER] Onset: 06-13-2022 Episodic Results Test Name Value Interpretation Reference Range Facility Office Visiton 08-03-2024 Follow-up visit [id number] Precious Khan 1970 F Date Provider Department Center 08/03/2024 3848-ALONDRA NICHOLS [facility] Family History Problem Relation Age of Onset Cancer Father Family Status - Relation Status Age at Father Level of Service:27801 NC OFFICE/OUTPATIENT NEW MODERATE MDM 45 MINUTES Normal [facility] GLYCOHEMOGLOBIN A1Con 2022 ADA RECOMMENDATION SEE BELOW Normal [facility] Comment on above: Result Comment: ADA RECOMMENDED LIMIT 4.0 - 6.0 ADA THERAPEUTIC TARGET < 7.0 ACTION SUGGESTED > 7.0 Performed By: #### D ATA1C #### [facility] [address] [place] [address] Dr. Ayleen Navarro Glucose [Mass/Vol] 192 mg/dL Normal [facility] Comment on above: Performed By: #### D ATA1C #### [facility] [address] [address] [address] Ayleen Navarro HbA1c (Bld) [Mass fraction] 8.3 % Critically high 4.5-6.2 [facility] Comment on above: Performed By: #### D ATA1C #### [facility] [address] [address] [address] Ayleen Navarro GLYCOHEMOGLOBIN A1Con 2021 ADA RECOMMENDATION SEE BELOW Normal [facility] Comment on above: Result Comment: ADA RECOMMENDED LIMIT 4.0 - 6.0 ADA THERAPEUTIC TARGET < 7.0 ACTION SUGGESTED > 7.0 Performed By: #### D ATA1C ####[facility] [address] [address]Dr. Ayleen Navarro Glucose [Mass/Vol] 180 mg/dL Normal [facility] Comment on above: Performed By: #### D ATA1C ####[facility] [address] [id number]. Ayleen Navarro HbA1c (Bld) [Mass fraction] 7.9 % Critically high 4.5-6.2 [facility] Comment on above: Performed By: #### D ATA1C ####[facility] [address] [address]Dr. Ayleen Navarro CBC AUTO DIFFon 06-13-2022 BASO # 0.1 103/ul Normal 0.0-0.1 [facility] Comment on above: Performed By: #### C BC #### [facility] [address] [place] [address] Dr. Ayleen Navarro Basophils/100 WBC (Bld) 0.7 % Normal 0.2-2.0 [facility] Comment on above: Performed By: #### C BC #### [facility] [address] [place] [address] Dr. Ayleen Navarro EO # 0.2 103/ul Normal 0.0-0.7 [facility] Comment on above: Performed By: #### C BC #### [facility] [address] [address] [address] Ayleen Navarro Eosinophils/100 WBC (Bld) 2.1 % Normal 0.9-7.0 [facility] Comment on above: Performed By: #### C BC #### [facility] [address] [place] [address] Dr. Ayleen Navarro Erythrocyte distribution width (RBC) [Ratio] 12.6 % Normal 11.0-15.0 [facility] Comment on above: Performed By: #### C BC #### [facility] [address] [place] [address] Dr. Ayleen Navarro Hematocrit (Bld) [Volume fraction] 42.8 % Normal 36.0-48.0 [facility] Comment on above: Performed By: #### C BC #### [facility] [address] [place] [address] Dr. Ayleen Navarro Hemoglobin (Bld) [Mass/Vol] 14.3 g/dL Normal 12.0-16.0 [facility] Comment on above: Performed By: #### C BC #### [facility] [address] [place] [address] Dr. Ayleen Navarro IG # 0.05 10e3/ul Critically high 0.00-0.03 [facility] Comment on above: Performed By: #### C BC #### [facility] [address] [place] [address] Dr. Ayleen Navarro IG % 0.5 % Normal 0.0-0.5 [facility] Comment on above: Performed By: #### C BC #### [facility] [address] [place] [address] Dr. Ayleen Navarro LYMPH # 3.4 103/ul Normal 1.2-3.8 [facility] Comment on above: Performed By: #### C BC #### [facility] [address] [place] [address] Dr. Ayleen Navarro Lymphocytes/100 WBC (Bld) 31.5 % Normal 20.5-60.0 [facility] Comment on above: Performed By: #### C BC #### [facility] [address] [place] [address] Dr. Ayleen Navarro MANUAL DIFF REQ NO Normal [facility] Comment on above: Performed By: #### C BC #### [facility] [address] [place] [address] Dr. Ayleen Navarro MCH (RBC) [Entitic mass] 29.3 pg Normal 26.7-34.0 [facility] Comment on above: Performed By: #### C BC #### [facility] [address] [place] [address] Dr. Ayleen Navarro MCHC (RBC) [Mass/Vol] 33.4 g/dL Normal 29.9-35.2 [facility] Comment on above: Performed By: #### C BC #### [facility] [address] [address] [address] Ayleen Navarro MCV (RBC) [Entitic vol] 87.7 fL Normal 81.0-99.0 [facility] Comment on above: Performed By: #### C BC #### [facility] [address] [address] [address] Ayleen Navarro MONO # 0.6 103/ul Normal 0.3-0.8 [facility] Comment on above: Performed By: #### C BC #### [facility] [address] [address] [address] Ayleen Navarro Monocytes/100 WBC (Bld) 5.5 % Normal 1.7-12.0 [facility] Comment on above: Performed By: #### C BC #### [facility] [address] [address] [address] Ayleen Navarro NEUT # 6.4 103/ul Normal 1.4-6.5 [facility] Comment on above: Performed By: #### C BC #### [facility] [address] [address] [address] Ayleen Navarro Neutrophils/100 WBC (Bld) 59.7 % Normal 43.0-75.0 [facility] Comment on above: Performed By: #### C BC #### [facility] [address] [address] [address] Ayleen Navarro Platelet mean volume (Bld) [Entitic vol] 10.9 fL Normal 9.5-13.5 [facility] Comment on above: Performed By: #### C BC #### [facility] [address] [address] [address] Ayleen Navarro PLT 229 103/ul Normal 150-450 [facility] Comment on above: Performed By: #### C BC #### [facility] [address] [address] [address] Ayleen Navarro RBC 4.88 106/ul Normal 4.20-5.40 [facility] Comment on above: Performed By: #### C BC #### [facility] [address] [address] [address] Ayleen Navarro WBC 10.7 103/ul Normal 4.0-11.0 [facility] Comment on above: Performed By: #### C BC #### [facility] [address] [address] [address] Ayleen Navarro PROF 14(COMP METB)on 022 Albumin [Mass/Vol] 3.2 g/dL Critically low 3.4-5.0 [facility] Comment on above: Performed By: #### H STROPN, CMP #### [facility] [address] [address] [address] Ayleen Navarro Albumin/Globulin [Mass ratio] 0.8 {ratio} Normal [facility] Comment on above: Performed By: #### H STROPN, CMP #### [facility] [address] [place] [address] Dr. Ayleen Navarro ALP [Catalytic activity/Vol] 76 U/L Normal 46-116 [facility] Comment on above: Performed By: #### H STROPN, CMP #### [facility] [address] [address] [address] Ayleen Navarro ALT [Catalytic activity/Vol] 24 U/L Normal 14-59 [facility] Comment on above: Performed By: #### H STROPN, CMP #### [facility] [address] [address] [address] Ayleen Navarro Anion gap [Moles/Vol] 8.5 mmol/L Normal [facility] Comment on above: Performed By: #### H STROPN, CMP #### [facility] [address] [address] [address] Ayleen Navarro AST [Catalytic activity/Vol] 4 U/L Critically low 15-37 [facility] Comment on above: Performed By: #### H STROPN, CMP #### [facility] [address] [address] [address] Ayleen Navarro Bilirubin [Mass/Vol] 0.2 mg/dL Normal 0.2-1.0 [facility] Comment on above: Performed By: #### H STROPN, CMP #### [facility] [address] [address] [address] Ayleen Navarro Calcium [Mass/Vol] 8.8 mg/dL Normal 8.5-10.1 [facility] Comment on above: Performed By: #### H STROPN, CMP #### [facility] [address] [address] [address] Ayleen Navarro Chloride [Moles/Vol] 99 mmol/L Normal 98-107 [facility] Comment on above: Performed By: #### H STROPN, CMP #### [facility] [address] [address] [address] Ayleen Navarro CO2 [Moles/Vol] 29.9 mmol/L Normal 21.0-32.0 [facility] Comment on above: Performed By: #### H STROPN, CMP #### [facility] [address] [address] [address] Ayleen Navarro Creatinine [Mass/Vol] 0.88 mg/dL Normal 0.55-1.02 [facility] Comment on above: Performed By: #### H STROPN, CMP #### [facility] [address] [place] [address] Dr. Ayleen Navarro EGFR-AF [place]ER >60 Normal >=60 [facility] Comment on above: Performed By: #### H STROPN, CMP #### [facility] [address] [address] [address] Ayleen Navarro EGFR-NON AF [place] >60 Normal >=60 [facility] Comment on above: Performed By: #### H STROPN, CMP #### [facility] [address] [address] [address] Ayleen Navarro Globulin (S) [Mass/Vol] 3.9 g/dL Normal [facility] Comment on above: Performed By: #### H STROPN, CMP #### [facility] [address] [address] [address] Ayleen Navarro Glucose [Mass/Vol] 245 mg/dL Critically high 74-106 [facility] Comment on above: Performed By: #### H STROPN, CMP #### [facility] [address] [address] [address] Ayleen Navarro Potassium [Moles/Vol] 3.4 mmol/L Critically low 3.5-5.1 [facility] Comment on above: Performed By: #### H STROPN, CMP #### [facility] [address] [address] [address] Ayleen Navarro Protein [Mass/Vol] 7.1 g/dL Normal 6.4-8.2 [facility] Comment on above: Performed By: #### H STROPN, CMP #### [facility] [address] [address] [address] Ayleen Navarro Sodium [Moles/Vol] 134 mmol/L Critically low 136-145 [facility] Comment on above: Performed By: #### H STROPN, CMP #### [facility] [address] [address] [address] Ayleen Navarro Urea nitrogen [Mass/Vol] 18.0 mg/dL Normal 7.0-18.0 [facility] Comment on above: Performed By: #### H STROPN, CMP #### [facility] [address] [address] [address] Ayleen Navarro Urea nitrogen/Creatinine [Mass ratio] 20.5 mg/mg Normal [facility] Comment on above: Performed By: #### H STROPN, CMP #### [facility] [address] [address] [address] Ayleen Navarro TROPONIN, HIGH SENSITIVITYon 06-13-2022 HSTROP 8.6 pg/mL Normal 4.0-51.3 [facility] Comment on above: Result Comment: CUT- OFF POINTS HAVE BEEN ESTABLISHED BASED ON THE FOURTH UNIVERSAL DEFINITIONS OF MYOCARDIAL INFARCTION. THE UPPER REFERENCE LIMIT (URL) OF TROPONIN, DEFINED THE 99TH PERCENTILE OF cTnI DISTRIBUTION IN A REFERENCE POPULATION, HAS BEEN CONFIRMED THE DECISION THRESHOLD FOR CA DIAGNOSIS. Performed By: #### H STROPN ####[facility] [address] [address]Dr. Ayleen Navarro HSTROP <4.0 Normal 4.0-51.3 [facility] Comment on above: Result Comment: CUT- OFF POINTS HAVE BEEN ESTABLISHED BASED ON THE FOURTH UNIVERSAL DEFINITIONS OF MYOCARDIAL INFARCTION. THE UPPER REFERENCE LIMIT (URL) OF TROPONIN, DEFINED THE 99TH PERCENTILE OF cTnI DISTRIBUTION IN A REFERENCE POPULATION, HAS BEEN CONFIRMED THE DECISION THRESHOLD FOR CA DIAGNOSIS. Performed By: #### H STROPN, CMP #### [facility] [address] [address] [address] Ayleen Navarro XR CHEST 1 Von [...] Radha GONZALEZ Date: 2022-06-13 04:44 Normal [facility] INSULINon 02-23-2022 Insulin 22.9 uIU/mL Normal 2.6-24.9 [facility] Comment on above: Performed By: #### I NSULIN #### [facility] [address] [address] [address] Ayleen Navarro CBC AUTO DIFFon 02-22-2022 BASO # 0.1 103/ul Normal 0.0-0.1 [facility] Comment on above: Performed By: #### C BC ####[facility] [address] [address]DrMiky Navarro Basophils/100 WBC (Bld) 0.9 % Normal 0.2-2.0 [facility] Comment on above: Performed By: #### C BC ####[facility] [address] [address]DrMiky Navarro EO # 0.2 103/ul Normal 0.0-0.7 [facility] Comment on above: Performed By: #### C BC ####[facility] [address] [address]Dr. Ayleen Navarro Eosinophils/100 WBC (Bld) 2.6 % Normal 0.9-7.0 [facility] Comment on above: Performed By: #### C BC ####[facility] [address] [address]Dr. Ayleen Navarro Erythrocyte distribution width (RBC) [Ratio] 13.3 % Normal 11.0-15.0 [facility] Comment on above: Performed By: #### C BC ####[facility] [address] [address]Dr. Aylene Navarro Hematocrit (Bld) [Volume fraction] 42.8 % Normal 36.0-48.0 [facility] Comment on above: Performed By: #### C BC ####[facility] [address] [place], [place] [address]Dr. Ayleen Navarro Hemoglobin (Bld) [Mass/Vol] 14.3 g/dL Normal 12.0-16.0 [facility] Comment on above: Performed By: #### C BC ####[facility] [address] [place], [place] [address]Dr. Ayleen Navarro IG # 0.05 10e3/ul Critically high 0.00-0.03 [facility] Comment on above: Performed By: #### C BC ####[facility] [address] [place], [place] [address]Dr. Ayleen Navarro IG % 0.5 % Normal 0.0-0.5 [facility] Comment on above: Performed By: #### C BC ####[facility] [address] [place], [place] [address]Dr. Ayleen Navarro LYMPH # 3.0 103/ul Normal 1.2-3.8 [facility] Comment on above: Performed By: #### C BC ####[facility] [address] [place], [place] [address]Dr. Ayleen Navarro Lymphocytes/100 WBC (Bld) 32.4 % Normal 20.5-60.0 [facility] Comment on above: Performed By: #### C BC ####[facility] [address] [address]Dr. Ayleen Ramon MANUAL DIFF REQ NO Normal [facility] Comment on above: Performed By: #### C BC ####[facility] [address] [address]Dr. Ayleen Navarro MCH (RBC) [Entitic mass] 29.5 pg Normal 26.7-34.0 [facility] Comment on above: Performed By: #### C BC ####[facility] [address] [address]Dr. Ayleen Ramon MCHC (RBC) [Mass/Vol] 33.4 g/dL Normal 29.9-35.2 [facility] Comment on above: Performed By: #### C BC ####[facility] [address] [place], [place] [address]Dr. Libbyzeynep Navarro MCV (RBC) [Entitic vol] 88.2 fL Normal 81.0-99.0 [facility] Comment on above: Performed By: #### C BC ####[facility] [address] [place], [place] [address]Dr. Ayleen Ramon MONO # 0.6 103/ul Normal 0.3-0.8 [facility] Comment on above: Performed By: #### C BC ####[facility] [address] [place], [place] [address]Dr. Libbyzeynep Navarro Monocytes/100 WBC (Bld) 6.7 % Normal 1.7-12.0 [facility] Comment on above: Performed By: #### C BC ####[facility] [address] [address]Dr. Libbyzeynep Ramon NEUT # 5.3 103/ul Normal 1.4-6.5 [facility] Comment on above: Performed By: #### C BC ####[facility] [address] [place], [place] [address]Dr. Ayleen Navarro Neutrophils/100 WBC (Bld) 56.9 % Normal 43.0-75.0 [facility] Comment on above: Performed By: #### C BC ####[facility] [address] [place] [address] Ayleen Navarro Platelet mean volume (Bld) [Entitic vol] 11.0 fL Normal 9.5-13.5 [facility] Comment on above: Performed By: #### C BC ####[facility] [address] [address]Dr. Ayleen Navarro PLT 239 103/ul Normal 150-450 [facility] Comment on above: Performed By: #### C BC ####[facility] [address] [address]Dr. Ayleen Navarro RBC 4.85 106/ul Normal 4.20-5.40 [facility] Comment on above: Performed By: #### C BC ####[facility] [address] [address]Dr. Ayleen Navarro WBC 9.3 103/ul Normal 4.0-11.0 [facility] Comment on above: Performed By: #### C BC ####[facility] [address] [address]DrMiky Navarro FREE THYROXINE INDEX T7on FTI 3.36 Normal 1.30-4.50 [facility] Comment on above: Performed By: #### L IPID, CMP, T7, TSH #### [facility] [address] [address] [address] Ayleen Navarro T3U 32.0 % Normal 30.0-39.0 [facility] Comment on above: Performed By: #### L IPID, CMP, T7, TSH #### [facility] [address] [address] [address] Ayleen Navarro T4 [Mass/Vol] 10.50 ug/dL Normal 4.80-13.90 [facility] Comment on above: Performed By: #### L IPID, CMP, T7, TSH #### [facility] [address] [address] [address] Ayleen Navarro IRONon 02-22-2022 Iron [Mass/Vol] 117.0 ug/dL Normal 50.0-170.0 [facility] Comment on above: Performed By: #### I FEDERICO ####[facility] [address] [place], [place] [address]CkDr. Ayleen Navarro LIPID PROFILEon 02-22-2022 CHOL-HDL RATIO NORM SEE BELOW Normal [facility] Comment on above: Result Comment: 3.3 - 4.4 LOW RISK 4.4 - 7.1 AVERAGE RISK 7.1 - 11.0 MODERATE RISK >11.0 HIGH RISK Performed By: #### L IPID, CMP, T7, TSH #### [facility] [address] [address] [address] Ayleen Navarro Cholesterol [Mass/Vol] 161 mg/dL Normal <=200 [facility] Comment on above: Performed By: #### L IPID, CMP, T7, TSH #### [facility] [address] [address] [address] Ayleen aNvarro Cholesterol in HDL [Mass/Vol] 42 mg/dL Normal 40-60 [facility] Comment on above: Performed By: #### L IPID, CMP, T7, TSH #### [facility] [address] [address] [address] Ayleen Navarro Cholesterol in LDL [Mass/Vol] 98.4 mg/dL Normal [facility] Comment on above: Performed By: #### L IPID, CMP, T7, TSH #### [facility] [address] [address] [address] Ayleen Navarro Cholesterol.total/Ch olesterol in HDL [Mass ratio] 3.8 {ratio} Normal [facility] Comment on above: Performed By: #### L IPID, CMP, T7, TSH #### [facility] [address] [address] [address] Ayleen Navarro HDL NORMAL > or = 60 mg/dl - LOW CARDIOVASCULAR RISK <40 mg/dl - HIGH CARDIOVASCULAR RISK Normal [facility] Comment on above: Performed By: #### L IPID, CMP, T7, TSH #### [facility] [address] [address] [address] Ayleen Navarro LDL CALC NORMAL SEE BELOW Normal [facility] Comment on above: Result Comment: <100 mg/dl OPTIMAL 100 - 129 mg/dl NEAR OR ABOVE OPTIMAL 130 - 159 mg/dl BORDERLINE HIGH 160 - 189 mg/dl HIGH >190 mg/dl VERY HIGH Performed By: #### L IPID, CMP, T7, TSH #### [facility] [address] [address] [address] Ayleen Navarro Triglyceride [Mass/Vol] 103 mg/dL Normal <=150 [facility] Comment on above: Performed By: #### L IPID, CMP, T7, TSH #### [facility] [address] [address] [address] Ayleen Navarro VLDL CALC 20.6 mg/dL Normal [facility] Comment on above: Performed By: #### L IPID, CMP, T7, TSH #### [facility] [address] [place] [address] Dr. Ayleen Navarro PROF 14(COMP METB)on 022 Albumin [Mass/Vol] 3.4 g/dL Normal 3.4-5.0 [facility] Comment on above: Performed By: #### L IPID, CMP, T7, TSH #### [facility] [address] [address] [address] Ayleen Navarro Albumin/Globulin [Mass ratio] 0.9 {ratio} Normal [facility] Comment on above: Performed By: #### L IPID, CMP, T7, TSH #### [facility] [address] [address] [address] Ayleen Navarro ALP [Catalytic activity/Vol] 71 U/L Normal 46-116 [facility] Comment on above: Performed By: #### L IPID, CMP, T7, TSH #### [facility] [address] [address] [address] Ayleen Navarro ALT [Catalytic activity/Vol] 25 U/L Normal 14-59 [facility] Comment on above: Performed By: #### L IPID, CMP, T7, TSH #### [facility] [address] [address] [address] Ayleen Navarro Anion gap [Moles/Vol] 10.1 mmol/L Normal [facility] Comment on above: Performed By: #### L IPID, CMP, T7, TSH #### [facility] [address] [address] [address] Ayleen Navarro AST [Catalytic activity/Vol] 11 U/L Critically low 15-37 [facility] Comment on above: Performed By: #### L IPID, CMP, T7, TSH #### [facility] [address] [address] [address] Ayleen Navarro Bilirubin [Mass/Vol] 0.5 mg/dL Normal 0.2-1.0 [facility] Comment on above: Performed By: #### L IPID, CMP, T7, TSH #### [facility] [address] [place] [address] Dr. Ayleen Navarro Calcium [Mass/Vol] 8.8 mg/dL Normal 8.5-10.1 [facility] Comment on above: Performed By: #### L IPID, CMP, T7, TSH #### [facility] [address] [address] [address] Ayleen Navarro Chloride [Moles/Vol] 100 mmol/L Normal 98-107 [facility] Comment on above: Performed By: #### L IPID, CMP, T7, TSH #### [facility] [address] [address] [address] Ayleen Navarro CO2 [Moles/Vol] 29.5 mmol/L Normal 21.0-32.0 [facility] Comment on above: Performed By: #### L IPID, CMP, T7, TSH #### [facility] [address] [place] [address] Dr. Ayleen Navarro Creatinine [Mass/Vol] 0.61 mg/dL Normal 0.55-1.02 [facility] Comment on above: Performed By: #### L IPID, CMP, T7, TSH #### [facility] [address] [place] [address] Dr. Ayleen Navarro EGFR-AF [place] >60 Normal >=60 [facility] Comment on above: Performed By: #### L IPID, CMP, T7, TSH #### [facility] [address] [address] [address] Ayleen Navarro EGFR-NON AF [place] >60 Normal >=60 [facility] Comment on above: Performed By: #### L IPID, CMP, T7, TSH #### [facility] [address] [address] [address] Ayleen Navarro Globulin (S) [Mass/Vol] 3.9 g/dL Normal [facility] Comment on above: Performed By: #### L IPID, CMP, T7, TSH #### [facility] [address] [address] [address] Ayleen Navarro Glucose [Mass/Vol] 119 mg/dL Critically high 74-106 [facility] Comment on above: Performed By: #### L IPID, CMP, T7, TSH #### [facility] [address] [address] [address] Ayleen Navarro Potassium [Moles/Vol] 3.6 mmol/L Normal 3.5-5.1 [facility] Comment on above: Performed By: #### L IPID, CMP, T7, TSH #### [facility] [address] [address] [address] Ayleen Navarro Protein [Mass/Vol] 7.3 g/dL Normal 6.4-8.2 [facility] Comment on above: Performed By: #### L IPID, CMP, T7, TSH #### [facility] [address] [address] [address] Ayleen Navarro Sodium [Moles/Vol] 136 mmol/L Normal 136-145 [facility] Comment on above: Performed By: #### L IPID, CMP, T7, TSH #### [facility] [address] [address] [address] Ayleen Navarro Urea nitrogen [Mass/Vol] 19.0 mg/dL Critically high 7.0-18.0 [facility] Comment on above: Performed By: #### L IPID, CMP, T7, TSH #### [facility] [address] [address] [address] Ayleen Navarro Urea nitrogen/Creatinine [Mass ratio] 31.1 mg/mg Normal [facility] Comment on above: Performed By: #### L IPID, CMP, T7, TSH #### [facility] [address] [place], [place] [address] Dr. Ayleen Navarro TSHon 02-22-2022 TSH 0.964 uIU/mL Normal 0.358-3.740 [facility] Comment on above: Performed By: #### L IPID, CMP, T7, TSH #### [facility] [address] [place], [place] [address] Dr. Ayleen Navarro GLYCOHEMOGLOBIN A1Con 2021 ADA RECOMMENDATION SEE BELOW Normal [facility] Comment on above: Result Comment: ADA RECOMMENDED LIMIT 4.0 - 6.0 ADA THERAPEUTIC TARGET < 7.0 ACTION SUGGESTED > 7.0 Performed By: #### A 1C ####[facility] [address] [place], [place] [address]XaMiky Navarro Glucose [Mass/Vol] 140 mg/dL Normal [facility] Comment on above: Performed By: #### A 1C ####[facility] [id number] [id number] Navarro HbA1c (Bld) [Mass fraction] 6.5 % Critically high 4.5-6.2 [facility] Comment on above: Performed By: #### A 1C ####[facility] [address] [id number] Navarro Encounters Encounter Date Encounter Type Care Provider Facility Start: 08-09-2024 End: 08-09-2024 ambulatory Philipp Mohamud MD Facility:[facility] Start: 08-03-2024 End: 08-03-2024 ambulatory [facility] Start: 11-23-2022 Encounter for genera l adult medical examination without abnormal findings MAGDA SÁNCHEZ [facility] Start: 11-19-2022 End: 11-20-2022 ambulatory MAGDA SÁNCHEZ Facility:[facility] Start: 11-19-2022 End: 11-20-2022 Encounter for general adult medical examination without abnormal findings MAGDA SÁNCHEZ Facility:[facility] Start: 08-21-2022 End: 08-22-2022 ambulatory NONE LISTED REQUEST Facility:[facility] Start: 06-13-2022 End: 06-13-2022 ambulatory MAGDA SÁNCHEZ Facility:[facility] Start: 02-22-2022 End: 02-23-2022 ambulatory MAGDA SÁNCHEZ Facility:[facility] Start: 02-12-2022 End: 02-13-2022 ambulatory MAGDA SÁNCHEZ Facility:[facility] Payers Date Payer Category Payer Unknown [id number] 1970 Unknown [id number] 2.16.84 [id number] 1970 Unknown [id number] 2.16.84 [id number] 1969 Unknown [id number] 2.16.84 [id number] 1969 Unknown [id number] [id number] 1959 Self-pay 1959 Unknown [id number] 1959 Unknown Unknown [id number] 2.16.84 [id number] Unknown [id number] 2.16.84 [id number] Progress note 08-03-2024 Note Date & Type Note Facility 08-03-2024 Note [facility]iology [facility] No te HPI: Precious Khan is a 53 y.o. female With a past medical history including hypertension, hyperlipidemia, diabetes mellitus, and previous tobacco abuse. Patient was referred to cardiology due to syncopal episode. Ref from Magda Sánchez CNP for syncope and tachycardia. She quit smoking last month but is still exposed to second hand smoke at home. No known family cardiac issues. The syncopal episode occurred when she was sitting at her computer desk. All of a sudden her head started swimming . She stood up to go lay down and all she remembers is waking up on the floor. She endorses some heart burn. Denies SOB. Denies lower extremity edema or orthopnea. Patient denies any previous cardiac problems or movements. She denies any family history of premature CAD. Patient had 5-day monitor performed. No sustained arrhythmias noted. Cardiology ROS: Review of Systems Cardiovascular: Positive for chest pain ( feels like heartburn ), leg swelling and syncope. Respiratory: Positive for cough. Musculoskeletal: Positive for arthritis and joint pain. Gastrointestinal: Positive for heartburn. Neurological: Positive for dizziness and light-headedness. All other systems reviewed and are negative. Past Medical History She has a past medical history of Abnormal ECG, Diabetes mellitus (CMS/HCC), Hyperlipidemia, and Hypertension. Surgical History She has a past surgical history that includes Knee surgery; Tubal ligation; and Oophorectomy. Social History She has no history on file for tobacco use, alcohol use, and drug use. Family History Family History Problem Relation Name Age of Onset Cancer Father Medications Current Outpatient Medications on File Prior to Visit Medication Sig Dispense Refill atorvastatin (Lipitor) 10 mg tablet Take 10 mg by mouth at bedtime. chlorthalidone (Hygroton) 25 mg tablet Take 25 mg by mouth in the morning. glipiZIDE (Glucotrol) 10 mg tablet Take 10 mg by mouth once daily as directed. insulin NPH, Isophane, (HumuLIN N,NovoLIN N) 100 unit/mL injection vial Inject under the skin before breakfast and before evening meal. Klor-Con M10 10 mEq ER tablet Take 10 mEq by mouth two times daily. lisinopril 10 mg tablet Take 10 mg by mouth in the morning. pantoprazole (ProtoNix) 40 mg EC tablet Take 40 mg by mouth before breakfast. tiZANidine (Zanaflex) 4 mg tablet Take 4 mg by mouth. traZODone (Desyrel) 50 mg tablet Take 50 mg by mouth if needed. No current facility-administered medications on file prior to visit. Allergies Patient has no known allergies. Physical Exam VITAL SIGNS: BP 114/68 (BP Location: Right arm, Patient Position: Sitting) Pulse 77 Ht 1.6 m (5' 3 ) Wt 106 kg (234 lb) SpO2 98% BMI 41.45 kg/m??? Constitutional: Well developed, Well nourished, No acute distress, Non-toxic appearance. HENT: Normocephalic, Atraumatic, Bilateral external ears have normal appearance, Nose appears normal, nares are patent. Eyes: PERRLA, EOMI, Conjunctiva normal, No discharge. Neck: Normal range of motion, No tenderness, Supple, No stridor. No cervical lymphadenopathy noted. Cardiovascular: Normal heart rate, Normal rhythm, No murmurs, No rubs, No gallops. Thorax & Lungs: Normal breath sounds, No respiratory distress, No wheezing, No chest tenderness to palpation. Abdomen: Bowel sounds normal, Soft, Nontender, No masses, No pulsatile masses. Skin: Warm, Dry, No erythema, No rash. Back: No tenderness, No CVA tenderness. Extremities: Intact distal pulses, No edema, No tenderness, No cyanosis, No clubbing. Musculoskeletal: Grossly normal strength in extremities Neurologic: Alert & oriented x 3, no gross focal neurological deficits Psychiatric: Affect normal, Judgment normal, Mood normal. EKG results: No results found for this or any previous visit (from the past 4464 hour(s)). Echo results: No echocardiogram results found for the past 12 months Radiology: No image results found. Impression: -Syncope, sounds vasovagal in nature rather than arrhythmia genic. However, prudent to rule out arrhythmias -Hypertension - Hyperlipidemia - Diabetes - History of tobacco abuse Plan: -Will obtain 30-day event monitor to rule out arrhythmias. Additionally, will obtain echocardiogram to assess LVEF, regional wall motion, and valvular function. - Given risk factors of tobacco abuse and diabetes, in addition to atypical chest pain with heartburn, will obtain Lexiscan stress test to rule out ischemia - Continue lisinopril 10 mg daily for hypertension - Continue atorvastatin 10 mg daily for hyperlipidemia -Optimize medical management -Aggressive risk factor modification -Plan of care discussed with patient. All questions were answered. Patient voices understanding and is agreeable with current plan. -Patient was educated on red flag symptoms. Strict return precautions were provided. Patient verbalizes understan (more content not included)... [facility] Summary Purpose Family History No Family History Records FoundNo Family History Records FoundNo Family History Records Found Advance Directives No Advanced Directives Records FoundNo Advanced Directives Records FoundNo Advanced Directives Records Found Additional Source Comments INFORMATION SOURCE (unrecogn ized section and content) DATE CREATED AUTHOR 11/24/2022 [facility] DATE CREATED AUTHOR AUTHOR'S ORGANIZ ATION 08/05/2024 [facility] DATE CREATED AUTHOR AUTHOR'S ORGANIZ ATION 08/15/2024 [facility] FOR RECORDS PERTAINING TO PATIENTS WHO ARE [...] BE BASED ON THE PRIMARY CLINICAL RECORDS. [facility] [employer], [facility]. provides no warranty or guarantee of the accuracy or completeness of information in this document.
[2024-09-08 14:08] LABS: Age Gdln ACOG Testing Note (.); HPV Aptima Negative (Negative); IGP, Aptima HPV, rfx 16/18,45 Note (.)
== END 2024-09-03 10:27 | disposition home or self-care (01) ==
LOC: LAB 10:26
PROVIDERS: Visit Provider Nurse Practitioner Family
DX: Z01.419 Encounter for gynecological examination (general) (routine) without abnormal findings (principal)
CPT/HCPCS: 87624; 88175

== ENCOUNTER 2024-11-02 12:59 | Outpatient (OUT) | payer BC, SELFPAY ==
--- OUTSIDE RECORDS SUMMARY | 2024-11-02 13:23 | XMS_ITS | CCD ---
Author Organization [facility] CliniSynd Care Team Providers Care Retail Assistant Store Manager Name Role Phone MAGDA SÁNCHEZ Admitting Unavailable [...] Primary Care Unavailable RONEN, MAGDA Consulting Unavailable Cade CASON, Philipp Waddell Attending Unavailable BRIANA NICHOLS Attending Unavailable BRIANA NICHOLS Attending Unavailable Allergies Allergy Classification Reported Allergen(s) Allergy Type Date of Onset Reaction(s) Facility (1 source) predniSONE Drug Allergy 12-09-2020 [facility] Repository Problems Active Problems Problem Classification [...] 02-14-2022 Episodic Other aftercare (1 source) Other residential (current) drug therapy; 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] Onset: 06-14-2022 Episodic Other non-traumatic joint disorders (4 sources) Pain in left shoulder; Translations: [PAIN IN LEFT SHOULDER] Onset: 06-13-2022 Episodic Results Test Name Value Interpretation Reference Range Facility Office Vis[facility] 09-10-2024 Follow-up visit [id number] Kevin Khan 1970 F Date Provider Department Center 09/10/2024 BRIANA SALDANA Family History Problem Relation Age of Onset Cancer Father Family Status - Relation Status Age at Father Level of Service:31546 NM OFFICE/OUTPATIENT ESTABLISHED MOD MDM 30 MIN Normal [facility] Office Visiton 08-03-2024 Follow-up visit [id number] Kevin Khan 1970 F Date Provider Department Center 08/03/2024 BRIANA SALDANA Family History Problem Relation Age of Onset Cancer Father Family Status - Relation Status Age at Father Level of Service:83474 NM OFFICE/OUTPATIENT NEW MODERATE MDM 45 MINUTES Normal [facility] GLYCOHEMOGLOBIN A1Con 2022 ADA RECOMMENDATION SEE BELOW Normal [facility] Comment on above: Result Comment: ADA RECOMMENDED LIMIT 4.0 - 6.0 ADA THERAPEUTIC TARGET < 7.0 ACTION SUGGESTED > 7.0 Performed By: #### D ATA1C #### [facility] [address] [place] [address] Dr. Ayleen Navarro Glucose [Mass/Vol] 192 mg/dL Normal [facility] Comment on above: Performed By: #### D ATA1C #### [facility] [address] [address] [address] Ayleen Navarro HbA1c (Bld) [Mass fraction] 8.3 % Critically high 4.5-6.2 [facility] Comment on above: Performed By: #### D ATA1C #### [facility] [address] [address] [address] Ayleen Navarro GLYCOHEMOGLOBIN A1Con 2021 ADA RECOMMENDATION SEE BELOW Normal [facility] Comment on above: Result Comment: ADA RECOMMENDED LIMIT 4.0 - 6.0 ADA THERAPEUTIC TARGET < 7.0 ACTION SUGGESTED > 7.0 Performed By: #### D ATA1C ####[facility] [address] [address]Dr. Ayleen Navarro Glucose [Mass/Vol] 180 mg/dL Normal [facility] Comment on above: Performed By: #### D ATA1C ####[facility] [address] [address]Dr. Ayleen Navarro HbA1c (Bld) [Mass fraction] 7.9 % Critically high 4.5-6.2 [facility] Comment on above: Performed By: #### D ATA1C ####[facility] [address] [address]Dr. Ayleen Navarro CBC AUTO DIFFon 06-13-2022 BASO # 0.1 103/ul Normal 0.0-0.1 [facility] Comment on above: Performed By: #### C BC #### [facility] [address] [address] [address] Ayleen Navarro Basophils/100 WBC (Bld) 0.7 % Normal 0.2-2.0 [facility] Comment on above: Performed By: #### C BC #### [facility] [address] [address] [address] Ayleen Navarro EO # 0.2 103/ul Normal 0.0-0.7 [facility] Comment on above: Performed By: #### C BC #### [facility] [address] [address] [address] Ayleen Navarro Eosinophils/100 WBC (Bld) 2.1 % Normal 0.9-7.0 [facility] Comment on above: Performed By: #### C BC #### [facility] [address] [place] [address] Dr. Ayleen Navarro Erythrocyte distribution width (RBC) [Ratio] 12.6 % Normal 11.0-15.0 [facility] Comment on above: Performed By: #### C BC #### [facility] [address] [address] [address] Ayleen Navarro Hematocrit (Bld) [Volume fraction] 42.8 % Normal 36.0-48.0 [facility] Comment on above: Performed By: #### C BC #### [facility] [address] [place] [address] Dr. Ayleen Navarro Hemoglobin (Bld) [Mass/Vol] 14.3 g/dL Normal 12.0-16.0 [facility] Comment on above: Performed By: #### C BC #### [facility] [address] [place] [address] Dr. Ayleen Navarro IG # 0.05 10e3/ul Critically high 0.00-0.03 [facility] Comment on above: Performed By: #### C BC #### [facility] [address] [place] [address] Dr. Ayleen Navarro IG % 0.5 % Normal 0.0-0.5 [facility] Comment on above: Performed By: #### C BC #### [facility] [address] [place] [address] Dr. Ayleen Navarro LYMPH # 3.4 103/ul Normal 1.2-3.8 [facility] Comment on above: Performed By: #### C BC #### [facility] [address] [place] [address] Dr. Ayleen Navarro Lymphocytes/100 WBC (Bld) 31.5 % Normal 20.5-60.0 [facility] Comment on above: Performed By: #### C BC #### [facility] [address] [place] [address] Dr. Ayleen Navarro MANUAL DIFF REQ NO Normal [facility] Comment on above: Performed By: #### C BC #### [facility] [address] [address] [address] Ayleen Navarro MCH (RBC) [Entitic mass] 29.3 pg Normal 26.7-34.0 [facility] Comment on above: Performed By: #### C BC #### [facility] [address] [place] [address] Dr. Ayleen Navarro MCHC (RBC) [Mass/Vol] 33.4 g/dL Normal 29.9-35.2 [facility] Comment on above: Performed By: #### C BC #### [facility] [address] [place] [address] Dr. Ayleen Navarro MCV (RBC) [Entitic vol] 87.7 fL Normal 81.0-99.0 [facility] Comment on above: Performed By: #### C BC #### [facility] [address] [place] [address] Dr. Ayleen Navarro MONO # 0.6 103/ul Normal 0.3-0.8 [facility] Comment on above: Performed By: #### C BC #### [facility] [address] [place] [address] Dr. Ayleen Navarro Monocytes/100 WBC (Bld) 5.5 % Normal 1.7-12.0 [facility] Comment on above: Performed By: #### C BC #### [facility] [address] [place] [address] Dr. Ayleen Navarro NEUT # 6.4 103/ul Normal 1.4-6.5 [facility] Comment on above: Performed By: #### C BC #### [facility] [address] [place] [address] Dr. Ayleen Navarro Neutrophils/100 WBC (Bld) 59.7 % Normal 43.0-75.0 [facility] Comment on above: Performed By: #### C BC #### [facility] [address] [place] [address] Dr. Ayleen Navarro Platelet mean volume (Bld) [Entitic vol] 10.9 fL Normal 9.5-13.5 [facility] Comment on above: Performed By: #### C BC #### [facility] [address] [address] [address] Ayleen Navarro PLT 229 103/ul Normal 150-450 [facility] Comment on above: Performed By: #### C BC #### [facility] [address] [place] [address] Dr. Ayleen Navarro RBC 4.88 106/ul Normal 4.20-5.40 [facility] Comment on above: Performed By: #### C BC #### [facility] [address] [address] [address] Ayleen Navarro WBC 10.7 103/ul Normal 4.0-11.0 [facility] Comment on above: Performed By: #### C BC #### [facility] [address] [place] [address] Dr. Ayleen Navarro PROF 14(COMP METB)on 06-13-2 022 Albumin [Mass/Vol] 3.2 g/dL Critically low 3.4-5.0 [facility] Comment on above: Performed By: #### H BENI, CMP #### [facility] [address] [place] [address] Dr. Ayleen Navarro Albumin/Globulin [Mass ratio] 0.8 {ratio} [facility] Comment on above: Performed By: #### H BENI, CMP #### [facility] [address] [place] [address] Dr. Ayleen Navarro ALP [Catalytic activity/Vol] 76 U/L Normal 46-116 [facility] Comment on above: Performed By: #### H RITAPN, CMP #### [facility] [address] [place] [address] Dr. Ayleen Navarro ALT [Catalytic activity/Vol] 24 U/L Normal 14-59 [facility] Comment on above: Performed By: #### H RITAPN, CMP #### [facility] [address] [place] [address] Dr. Ayleen Navarro Anion gap [Moles/Vol] 8.5 mmol/L Normal [facility] Comment on above: Performed By: #### H RITAPN, CMP #### [facility] [address] [address] [address] Ayleen Navarro AST [Catalytic activity/Vol] 4 U/L Critically low 15-37 [facility] Comment on above: Performed By: #### H STROPN, CMP #### [facility] [address] [place] [address] Dr. Ayleen Navarro Bilirubin [Mass/Vol] 0.2 mg/dL Normal 0.2-1.0 [facility] Comment on above: Performed By: #### H STROPN, CMP #### [facility] [address] [place] [address] Dr. Ayleen Navarro Calcium [Mass/Vol] 8.8 mg/dL Normal 8.5-10.1 [facility] Comment on above: Performed By: #### H STROPN, CMP #### [facility] [address] [place] [address] Dr. Ayleen Navarro Chloride [Moles/Vol] 99 mmol/L Normal 98-107 [facility] Comment on above: Performed By: #### H STROPN, CMP #### [facility] [address] [place] [address] Dr. Ayleen Navarro CO2 [Moles/Vol] 29.9 mmol/L Normal 21.0-32.0 [facility] Comment on above: Performed By: #### H STROPN, CMP #### [facility] [address] [place] [address] Dr. Ayleen Navarro Creatinine [Mass/Vol] 0.88 mg/dL Normal 0.55-1.02 [facility] Comment on above: Performed By: #### H STROPN, CMP #### [facility] [address] [place] [address] Dr. Ayleen Navarro EGFR-AF BRITISH >60 Normal >=60 [facility] Comment on above: Performed By: #### H STROPN, CMP #### [facility] [address] [place] [address] Dr. Ayleen Navarro EGFR-NON AF BRITISH >60 Normal >=60 [facility] Comment on above: Performed By: #### H STROPN, CMP #### [facility] [address] [address] [address] Ayleen Navarro Globulin (S) [Mass/Vol] 3.9 g/dL Normal [facility] Comment on above: Performed By: #### H RITAPN, CMP #### [facility] [address] [place] [address] Dr. Ayleen Navarro Glucose [Mass/Vol] 245 mg/dL Critically high 74-[address] [facility] Comment on above: Performed By: #### H STROPN, CMP #### [facility] [address] [place] [address] Dr. Ayleen Navarro Potassium [Moles/Vol] 3.4 mmol/L Critically low 3.5-5.1 [facility] Comment on above: Performed By: #### H RITAPN, CMP #### [facility] [address] [place] [address] Dr. Ayleen Navarro Protein [Mass/Vol] 7.1 g/dL Normal 6.4-8.2 [facility] Comment on above: Performed By: #### H STROFLAVIA, CMP #### [facility] [address] [place] [address] Dr. Ayleen Navarro Sodium [Moles/Vol] 134 mmol/L Critically low 136-145 [facility] [place] Comment on above: Performed By: #### H STROPN, CMP #### [facility] [address] [place] [address] Dr. Ayleen Navarro Urea nitrogen [Mass/Vol] 18.0 mg/dL Normal 7.0-18.0 [facility] Comment on above: Performed By: #### H STROPN, CMP #### [facility] [address] [place] [address] Dr. Ayleen Navarro Urea nitrogen/Creatinine [Mass ratio] 20.5 mg/mg Normal [facility] Comment on above: Performed By: #### H RITAPN, CMP #### [facility] [address] [place] [address] Dr. Ayleen Navarro TROPONIN, HIGH SENSITIVITYon 06-13-2022 HSTROP 8.6 pg/mL Normal 4.0-51.3 [facility] Comment on above: Result Comment: CUT- OFF POINTS HAVE BEEN ESTABLISHED BASED ON THE FOURTH UNIVERSAL DEFINITIONS OF MYOCARDIAL INFARCTION. THE UPPER REFERENCE LIMIT (URL) OF TROPONIN, DEFINED THE 99TH PERCENTILE OF cTnI DISTRIBUTION IN A REFERENCE POPULATION, HAS BEEN CONFIRMED THE DECISION THRESHOLD FOR MA DIAGNOSIS. Performed By: #### H STROPN ####[facility] [address] [place], [place] [address]NhDr. Ayleen Navarro HSTROP <4.0 Normal 4.0-51.3 [facility] Comment on above: Result Comment: CUT- OFF POINTS HAVE BEEN ESTABLISHED BASED ON THE FOURTH UNIVERSAL DEFINITIONS OF MYOCARDIAL INFARCTION. THE UPPER REFERENCE LIMIT (URL) OF TROPONIN, DEFINED THE 99TH PERCENTILE OF cTnI DISTRIBUTION IN A REFERENCE POPULATION, HAS BEEN CONFIRMED THE DECISION THRESHOLD FOR MA DIAGNOSIS. Performed By: #### H BENI, CMP #### [facility] [address] [address] [address] Ayleen Navarro XR CHEST 1 Von [...] Radha GONZALEZ Date: 2022-06-13 04:44 Normal [facility] INSULINon 02-23-2022 Insulin 22.9 uIU/mL Normal 2.6-24.9 [facility] Comment on above: Performed By: #### I NSULIN #### [facility] [address] [place], [place] [address] Dr. Ayleen Navarro CBC AUTO DIFFon 02-22-2022 BASO # 0.1 103/ul Normal 0.0-0.1 [facility] Comment on above: Performed By: #### C BC ####[facility] [address] [id number]. Ayleen Navarro Basophils/100 WBC (Bld) 0.9 % Normal 0.2-2.0 [facility] Comment on above: Performed By: #### C BC ####[facility] [address] [place], [place] [address]Dr. Ayleen Navarro EO # 0.2 103/ul Normal 0.0-0.7 [facility] Comment on above: Performed By: #### C BC ####[facility] [address] [place], [place] [address]Dr. Ayleen Navarro Eosinophils/100 WBC (Bld) 2.6 % Normal 0.9-7.0 [facility] Comment on above: Performed By: #### C BC ####[facility] [address] [place], [place] [address]Dr. Ayleen Navarro Erythrocyte distribution width (RBC) [Ratio] 13.3 % Normal 11.0-15.0 [facility] Comment on above: Performed By: #### C BC ####[facility] [address] [place], [place] [address]Dr. Ayleen Navarro Hematocrit (Bld) [Volume fraction] 42.8 % Normal 36.0-48.0 [facility] Comment on above: Performed By: #### C BC ####[facility] [address] [place], [place] [address]Dr. Ayleen Navarro Hemoglobin (Bld) [Mass/Vol] 14.3 g/dL Normal 12.0-16.0 [facility] Comment on above: Performed By: #### C BC ####[facility] [address] [place], [place] [address]DrMiky Navarro IG # 0.05 10e3/ul Critically high 0.00-0.03 [facility] Comment on above: Performed By: #### C BC ####[facility] [address] [place], [place] [address]Dr. Ayleen Navarro IG % 0.5 % Normal 0.0-0.5 [facility] Comment on above: Performed By: #### C BC ####[facility] [address] [place], [place] [address]Dr. Ayleen Navarro LYMPH # 3.0 103/ul Normal 1.2-3.8 [facility] Comment on above: Performed By: #### C BC ####[facility] [address] [address]Dr. Ayleen Navarro Lymphocytes/100 WBC (Bld) 32.4 % Normal 20.5-60.0 [facility] Comment on above: Performed By: #### C BC ####[facility] [address] [address]DrMiky Navarro MANUAL DIFF REQ NO Normal [facility] Comment on above: Performed By: #### C BC ####[facility] [address] [address]Dr. Ayleen Navarro MCH (RBC) [Entitic mass] 29.5 pg Normal 26.7-34.0 [facility] Comment on above: Performed By: #### C BC ####[facility] [address] [place], [place] [address]Dr. Ayleen Navarro MCHC (RBC) [Mass/Vol] 33.4 g/dL Normal 29.9-35.2 [facility] Comment on above: Performed By: #### C BC ####[facility] [address] [place], [place] [address]DrMiky Navarro MCV (RBC) [Entitic vol] 88.2 fL Normal 81.0-99.0 [facility] Comment on above: Performed By: #### C BC ####[facility] [address] [place], [place] [address]Dr. Ayleen Navarro MONO # 0.6 103/ul Normal 0.3-0.8 [facility] Comment on above: Performed By: #### C BC ####[facility] [address] [place], [place] [address]DrMiky Navarro Monocytes/100 WBC (Bld) 6.7 % Normal 1.7-12.0 [facility] Comment on above: Performed By: #### C BC ####[facility] [address] [place], [place] [address]Dr. Ayleen Navarro NEUT # 5.3 103/ul Normal 1.4-6.5 [facility] Comment on above: Performed By: #### C BC ####[facility] [address] [address]Dr. Ayleen Navarro Neutrophils/100 WBC (Bld) 56.9 % Normal 43.0-75.0 [facility] Comment on above: Performed By: #### C BC ####[facility] [address] [address]Dr. Ayleen Navarro Platelet mean volume (Bld) [Entitic vol] 11.0 fL Normal 9.5-13.5 [facility] Comment on above: Performed By: #### C BC ####[facility] [address] [address]DrMiky Navarro PLT 239 103/ul Normal 150-450 [facility] Comment on above: Performed By: #### C BC ####[facility] [address] [address]DrMiky Navarro RBC 4.85 106/ul Normal 4.20-5.40 [facility] Comment on above: Performed By: #### C BC ####[facility] [address] [address]DrMiky Navarro WBC 9.3 103/ul Normal 4.0-11.0 [facility] Comment on above: Performed By: #### C BC ####[facility] [address] [address]Dr. Ayleen Navarro FREE THYROXINE INDEX T7on -2021 FTI 3.36 Normal 1.30-4.50 [facility] Comment on above: Performed By: #### L IPID, CMP, T7, TSH #### [facility] [address] [address] [address] Ayleen Navarro T3U 32.0 % Normal 30.0-39.0 [facility] Comment on above: Performed By: #### L IPID, CMP, T7, TSH #### [facility] [address] [address] [address] Ayleen Navarro T4 [Mass/Vol] 10.50 ug/dL Normal 4.80-13.90 [facility] Comment on above: Performed By: #### L IPID, CMP, T7, TSH #### [facility] [id number] Ayleen Navarro IRONon 02-22-2022 Iron [Mass/Vol] 117.0 ug/dL Normal 50.0-170.0 [facility] Comment on above: Performed By: #### I FEDERICO ####[facility] [address] [place], [place] [address]ItDr. Ayleen Navarro LIPID PROFILEon 02-22-2022 CHOL-HDL RATIO NORM SEE BELOW Normal [facility] Comment on above: Result Comment: 3.3 - 4.4 LOW RISK 4.4 - 7.1 AVERAGE RISK 7.1 - 11.0 MODERATE RISK >11.0 HIGH RISK Performed By: #### L IPID, CMP, T7, TSH #### [facility] [address] [address] [address] Ayleen Navarro Cholesterol [Mass/Vol] 161 mg/dL Normal <=200 [facility] Comment on above: Performed By: #### L IPID, CMP, T7, TSH #### [facility] [address] [address] [address] Ayleen Navarro Cholesterol in HDL [Mass/Vol] 42 mg/dL Normal 40-60 [facility] Comment on above: Performed By: #### L IPID, CMP, T7, TSH #### [facility] [address] [address] [address] Ayleen Navarro Cholesterol in LDL [Mass/Vol] 98.4 mg/dL Normal [facility] Comment on above: Performed By: #### L IPID, CMP, T7, TSH #### [facility] [address] [address] [address] Ayleen Navarro Cholesterol.total/Ch olesterol in HDL [Mass ratio] 3.8 {ratio} Normal [facility] Comment on above: Performed By: #### L IPID, CMP, T7, TSH #### [facility] [address] [address] [address] Ayleen Navarro HDL NORMAL > or = 60 mg/dl - LOW CARDIOVASCULAR RISK <40 mg/dl - HIGH CARDIOVASCULAR RISK Normal [facility] Comment on above: Performed By: #### L IPID, CMP, T7, TSH #### [facility] [address] [address] [address] Ayleen Navarro LDL CALC NORMAL SEE BELOW Normal [facility] Comment on above: Result Comment: <100 mg/dl OPTIMAL 100 - 129 mg/dl NEAR OR ABOVE OPTIMAL 130 - 159 mg/dl BORDERLINE HIGH 160 - 189 mg/dl HIGH >190 mg/dl VERY HIGH Performed By: #### L IPID, CMP, T7, TSH #### [facility] [address] [address] [address] Ayleen Navarro Triglyceride [Mass/Vol] 103 mg/dL Normal <=150 [facility] Comment on above: Performed By: #### L IPID, CMP, T7, TSH #### [facility] [address] [address] [address] Ayleen Navarro VLDL CALC 20.6 mg/dL Normal [facility] Comment on above: Performed By: #### L IPID, CMP, T7, TSH #### [facility] [address] [address] [address] Ayleen Navarro PROF 14(COMP METB)on 022 Albumin [Mass/Vol] 3.4 g/dL Normal 3.4-5.0 [facility] Comment on above: Performed By: #### L IPID, CMP, T7, TSH #### [facility] [address] [address] [address] Ayleen Navarro Albumin/Globulin [Mass ratio] 0.9 {ratio} Normal [facility] Comment on above: Performed By: #### L IPID, CMP, T7, TSH #### [facility] [address] [address] [address] Ayleen Navarro ALP [Catalytic activity/Vol] 71 U/L Normal 46-116 [facility] Comment on above: Performed By: #### L IPID, CMP, T7, TSH #### [facility] [address] [address] [address] Ayleen Navarro ALT [Catalytic activity/Vol] 25 U/L Normal 14-59 [facility] Comment on above: Performed By: #### L IPID, CMP, T7, TSH #### [facility] [address] [address] [address] Ayleen Navarro Anion gap [Moles/Vol] 10.1 mmol/L Normal [facility] Comment on above: Performed By: #### L IPID, CMP, T7, TSH #### [facility] [address] [address] [address] Ayleen Navarro AST [Catalytic activity/Vol] 11 U/L Critically low 15-37 [facility] Comment on above: Performed By: #### L IPID, CMP, T7, TSH #### [facility] [address] [address] [address] Ayleen Navarro Bilirubin [Mass/Vol] 0.5 mg/dL Normal 0.2-1.0 [facility] Comment on above: Performed By: #### L IPID, CMP, T7, TSH #### [facility] [address] [address] [address] Ayleen Navarro Calcium [Mass/Vol] 8.8 mg/dL Normal 8.5-10.1 [facility] Comment on above: Performed By: #### L IPID, CMP, T7, TSH #### [facility] [address] [address] [address] Ayleen Navarro Chloride [Moles/Vol] 100 mmol/L Normal 98-107 [facility] Comment on above: Performed By: #### L IPID, CMP, T7, TSH #### [facility] [address] [address] [address] Ayleen Navarro CO2 [Moles/Vol] 29.5 mmol/L Normal 21.0-32.0 [facility] Comment on above: Performed By: #### L IPID, CMP, T7, TSH #### [facility] [address] [address] [address] Ayleen Navarro Creatinine [Mass/Vol] 0.61 mg/dL Normal 0.55-1.02 [facility] Comment on above: Performed By: #### L IPID, CMP, T7, TSH #### [facility] [address] [place] [address] Dr. Ayleen Navarro EGFR-AF BRITISH >60 Normal >=60 [facility] Comment on above: Performed By: #### L IPID, CMP, T7, TSH #### [facility] [address] [address] [address] Ayleen Navarro EGFR-NON AF BRITISH >60 Normal >=60 [facility] Comment on above: Performed By: #### L IPID, CMP, T7, TSH #### [facility] [address] [place] [address] Dr. Ayleen Navarro Globulin (S) [Mass/Vol] 3.9 g/dL Normal [facility] Comment on above: Performed By: #### L IPID, CMP, T7, TSH #### [facility] [address] [place] [address] Dr. Ayleen Navarro Glucose [Mass/Vol] 119 mg/dL Critically high 74-106 [facility] [place] [facility] Comment on above: Performed By: #### L IPID, CMP, T7, TSH #### [facility] [address] [place] [address] Dr. Ayleen Navarro Potassium [Moles/Vol] 3.6 mmol/L Normal 3.5-5.1 [facility] Comment on above: Performed By: #### L IPID, CMP, T7, TSH #### [facility] [address] [place] [address] Dr. Ayleen Navarro Protein [Mass/Vol] 7.3 g/dL Normal 6.4-8.2 [facility] Comment on above: Performed By: #### L IPID, CMP, T7, TSH #### [facility] [address] [place] [address] Dr. Ayleen Navarro Sodium [Moles/Vol] 136 mmol/L Normal 136-145 [facility] Comment on above: Performed By: #### L IPID, CMP, T7, TSH #### [facility] [address] [address] [address] Ayleen Navarro Urea nitrogen [Mass/Vol] 19.0 mg/dL Critically high 7.0-18.0 [facility] Comment on above: Performed By: #### L IPID, CMP, T7, TSH #### [facility] [address] [address] [address] Ayleen Navarro Urea nitrogen/Creatinine [Mass ratio] 31.1 mg/mg Normal [facility] Comment on above: Performed By: #### L IPID, CMP, T7, TSH #### [facility] [address] [address] [address] Ayleen Navarro TSHon 02-22-2022 TSH 0.964 uIU/mL Normal 0.358-3.740 [facility] Comment on above: Performed By: #### L IPID, CMP, T7, TSH #### [facility] [address] [address] [address] Ayleen Navarro GLYCOHEMOGLOBIN A1Con 2021 ADA RECOMMENDATION SEE BELOW Normal [facility] Comment on above: Result Comment: ADA RECOMMENDED LIMIT 4.0 - 6.0 ADA THERAPEUTIC TARGET < 7.0 ACTION SUGGESTED > 7.0 Performed By: #### A 1C ####[facility] [address] [address]Dr. Ayleen Navarro Glucose [Mass/Vol] 140 mg/dL Normal [facility] Comment on above: Performed By: #### A 1C ####[facility] [address] [address]Dr. Ayleen Navarro HbA1c (Bld) [Mass fraction] 6.5 % Critically high 4.5-6.2 [facility] Comment on above: Performed By: #### A 1C ####[facility] [address] [address]Dr. Ayleen Navarro Encounters Encounter Date Encounter Type Care Provider Facility Start: 09-10-2024 End: 09-10-2024 ambulatory [facility] Start: 08-09-2024 End: 08-09-2024 ambulatory Philipp Mohamud MD Facility:[facility] Start: 08-03-2024 End: 08-03-2024 ambulatory [facility] Start: 11-23-2022 Encounter for genera l adult medical examination without abnormal findings MAGDA SÁNCHEZ [facility] Start: 11-19-2022 End: 11-20-2022 ambulatory MAGDA SÁNCHEZ Facility:[facility] Start: 11-19-2022 End: 11-20-2022 Encounter for general adult medical examination without abnormal findings MAGDAKRANTHI FERGUSONMER Facility:[facility] Start: 08-21-2022 End: 08-22-[address] NONE LISTED REQUEST Facility:[facility] Start: 06-13-2022 End: 06-13-2022 ambulatory MAGDA SÁNCHEZ Facility:[facility] Start: 02-22-2022 End: 02-23-2022 ambulatory MAGDA SÁNCHEZ Facility:[facility] Start: 02-12-2022 End: 02-13-2022 ambulatory MAGDA SÁNCHEZ Facility:[facility] Payers Date Payer Category Payer Unknown [id number] 1970 Unknown [id number] .16.84 [id number] 1970 Unknown [id number] .16.84 [id number] 1970 Unknown [id number] .16.84 [id number] 1970 Unknown [id number] .16. [id number] 1960 Self-pay 1960 Unknown [id number] 1960 Unknown Unknown [id number] .16.84 [id number] Unknown [id number] .16.84 [id number] Progress note 09-10-2024 Note Date & Type Note Facility 09-10-2024 Note Cardiology Clinic No te HPI: Kevin Khan is a 53 y.o. female With a past medical history including hypertension, hyperlipidemia, diabetes mellitus, and previous tobacco abuse. Patient was referred to cardiology due to syncopal episode. Patient returns to clinic for follow up. Patient here for follow up event monitor, stress test, and echo. She is no longer having chest pain. Denies recurrent syncope also. Patient adamantly denies any cardiac complaints or concerns. Patient denies any chest pain or shortness of breath. Patient denies any lower extremity edema, orthopnea, or proximal nocturnal dyspnea. No near-syncope or syncope. No dizziness or lightheadedness. Testing reviewed. No sustained arrythmias on event. No reversible iscehmia on stress. Echo without acute abnormality. Cardiology ROS: 10 point ROS is performed and is negative unless otherwise specified in HPI. Past Medical History She has a past medical history of Abnormal ECG, Diabetes mellitus (CMS/HCC), Hyperlipidemia, and Hypertension. Surgical History She has a past surgical history that includes Knee surgery; Tubal ligation; and Oophorectomy. Social History She reports that she has been smoking cigarettes. She has been exposed to tobacco smoke. She has never used smokeless tobacco. No history on file for alcohol use and drug use. Family History Family History [...] no known allergies. Physical Exam VITAL SIGNS: There were no vitals taken for this visit. Constitutional: Well developed, Well nourished, No acute [...] Radiology: No image results found. Impression: -Syncope, vasovagal in nature rather than arrhythmia genic. No arrythmias on monitor -Hypertension - Hyperlipidemia - Diabetes - History of tobacco abuse -Preop risk stratification Plan: -No sustained arrythmias on event. No reversible iscehmia on stress. Echo without acute abnormality. -patient without chest pain or shortness of breath -she is moderate risk for surgery. She can proceed without additional cardiac testing - Continue lisinopril 10 mg daily for hypertension - Continue atorvastatin 10 mg daily for hyperlipidemia -Optimize medical management -Aggressive risk factor modification -Plan of care discussed with patient. All questions were answered. Patient voices understanding and is agreeable with current plan. -Patient was educated on red flag symptoms. Strict return precautions were provided. Patient verbalizes understanding -Follow-up in cardiology clinic Thank you for allowing us to participate in the care of your patient. Please do not hesitate to contact cardiology with any questions or concerns. Briana Nichols MD Interventional Cardiology [facility] Progress note 08-03-2024 Note Date & Type Note Facility 08-03-2024 Note Cardiology Clinic No te HPI: Kevin Khan is a 53 y.o. female With [...] Patient verbalizes understan (more content not included)... [facility] Summary Purpose Family History No Family History Records FoundNo Family History Records FoundNo Family History Records Found Advance Directives No Advanced Directives Records FoundNo Advanced Directives Records FoundNo Advanced Directives Records Found Additional Source Comments INFORMATION SOURCE (unrecogn ized section and content) DATE CREATED AUTHOR 11/24/2022 [facility] DATE CREATED AUTHOR AUTHOR'S ORGANIZ ATION 08/15/2024 [facility] DATE CREATED AUTHOR AUTHOR'S ORGANIZ ATION 10/31/2024 [facility] FOR RECORDS PERTAINING TO PATIENTS WHO ARE [...] BE BASED ON THE PRIMARY CLINICAL RECORDS. [facility]. provides no warranty or guarantee of the accuracy or completeness of information in this document.
--- NOTE | 2024-11-02 13:32 | XR_ITS ---
The [address] [address] Patient Name: KEVIN CUNHA MRN: [id number] date: 1970 Sex: F Assigned Patient Location: LAB Current Patient Location: LAB Accession/Order Number: [id number] Exam Date: 11/02/2024 15:51 Report Date: 11/02/2024 15:51 At the request of: NON-STAFF PHYSICIAN MD Procedure: XR chest 2V PA AND LATERAL CHEST: CLINICAL HISTORY: Presurgical clearance for knee replacement COMPARISON: 09/04/2023 There is no focal parenchymal consolidation, effusion or pneumothorax. The cardiac, hilar and mediastinal silhouettes are within normal limits. There is no vascular congestion. The visualized bony thorax is intact. End plate spurring is visualized at the spine. XR/XR chest 2V IMPRESSION: NO ACUTE CARDIOPULMONARY ABNORMALITY. Impression dictated by: Zuleyka Flood M.D.11/02/2024 3:51 PM Dictation Location[facility] Electronically authenticated by: [id number] Y Date: 11/02/2024 15:51
[2024-11-02 13:41] LABS: Bilirubin Urine NEGATIVE (NEGATIVE); Blood Urine NEGATIVE (NEGATIVE); Clarity Urine CLEAR (CLEAR); Color Urine LT. YELLOW (YELLOW); Glucose Urine UA >=1000 mg/dL (NEGATIVE); Ketones Urine NEGATIVE (NEGATIVE); Leukocyte Esterase Urine NEGATIVE (NEGATIVE); Nitrite Urine NEGATIVE (NEGATIVE); Protein Urine NEGATIVE (NEG/TRACE); Urobilinogen Urine 0.2 EU/dL (0.2-1.0)
[2024-11-02 13:41] LABS: Basophils Absolute Auto 0.1 10^3/uL (0.0-0.1); Basophils Percent Auto 0.8 % (0.2-2.0); Eosinophils Absolute Auto 0.2 10^3/uL (0.0-0.7); Eosinophils Percent Auto 2.6 % (0.9-7.0); Hematocrit 42.7 % (36.0-48.0); Hemoglobin 14.7 g/dL (12.0-16.0); Immature Granulocytes Abs Auto 0.04 10^3/uL (0.00-0.03); Immature Granulocytes Pct Auto 0.4 % (0.0-0.5); Lymphocytes Absolute Auto 2.8 10^3/uL (1.2-3.8); Lymphocytes Percent Auto 30.3 % (20.5-60.0); Mean Corpuscular HGB Conc 34.4 g/dL (29.9-35.2); Mean Corpuscular Hemoglobin 30.4 pg (26.7-34.0); Mean Corpuscular Volume 88.2 fL (81.0-99.0); Mean Platelet Volume 10.9 fL (9.5-13.5); Monocytes Absolute Auto 0.6 10^3/uL (0.3-0.8); Neutrophils Absolute Auto 5.4 10^3/uL (1.4-6.5); Neutrophils Percent Auto 58.9 % (43.0-75.0); Platelet Count 211 10^3/uL (150-450); Red Blood Count 4.84 10^6/uL (4.20-5.40); Red Cell Distribution Width 12.3 % (11.0-15.0); White Blood Count 9.1 10^3/uL (4.0-11.0)
[2024-11-02 13:46] LABS: Urine Microscopic Indicated NO
--- NOTE | 2024-11-02 14:02 | ECG_ITS ---
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
[2024-11-02 14:08] LABS: INR 0.95; Partial Thromboplastin Time 27.9 sec (22.3-36.2); Prothrombin Time 10.1 sec (9.0-11.6)
[2024-11-02 14:20] LABS: Estimated Average Glucose 146 mg/dL; Glycohemoglobin A1C 6.7 % (4.5-6.2)
[2024-11-02 14:38] LABS: Alanine Aminotransferase 27 U/L (14-59); Albumin Globulin Ratio 0.9; Albumin Level 3.4 g/dL (3.4-5.0); Alkaline Phosphatase 80 U/L (46-116); Anion Gap 10.7; Aspartate Amino Transferase 11 U/L (15-37); BUN Creatinine Ratio 22.7; Bilirubin Total 0.3 mg/dL (0.2-1.0); Calcium 8.7 mg/dL (8.5-10.1); Carbon Dioxide 28.2 mmol/L (21.0-32.0); Chloride 99 mmol/L (98-107); Estimated GFR (African America >60 (>=60 mL/min/1.73m^2); Estimated GFR (Non-African Ame >60 (>=60 mL/min/1.73m^2); Globulin 3.9 g/dL; Glucose 220 mg/dL (74-106); Potassium 3.9 mmol/L (3.5-5.1); Sodium 134 mmol/L (136-145); Total Protein 7.3 g/dL (6.4-8.2)
== END 2024-11-02 13:00 | disposition home or self-care (01) ==
LOC: LAB 13:02
PROVIDERS: PCP Nurse Practitioner Family
DX: Z01.810 Encounter for preprocedural cardiovascular examination (principal); Z01.818 Encounter for other preprocedural examination; Z22.322 Carrier or suspected carrier of Methicillin resistant Staphylococcus aureus
CPT/HCPCS: 36415; 71046; 80053; 81003; 83036; 85025; 85610; 85730; 87081; 93005

== ENCOUNTER 2024-11-22 13:53 | Outpatient (OUT) | payer BC, SELFPAY | END 2024-11-22 13:54 | disposition home or self-care (01) | LOC: US 13:55 | PROVIDERS: PCP Nurse Practitioner Family; Visit Provider Orthopaedic Surgery | DX: Z96.652 Presence of left artificial knee joint (principal); Z47.1 Aftercare following joint replacement surgery | CPT/HCPCS: 93971 ==

== ENCOUNTER 2024-11-30 06:00 | Outpatient (RCR) | payer BC, MEDICAID, SELFPAY | END 2024-12-11 07:30 | disposition home or self-care (01) | LOC: PT 06:00 | PROVIDERS: PCP Nurse Practitioner Family; Visit Provider Orthopaedic Surgery | DX: Z47.1 Aftercare following joint replacement surgery (principal); Z96.652 Presence of left artificial knee joint | CPT/HCPCS: 97110; 97530 ==

== ENCOUNTER 2024-12-12 11:09 | Outpatient (RCR) | payer MEDICAID, SELFPAY | END 2025-01-29 07:30 | disposition home or self-care (01) | LOC: PT 11:09 | PROVIDERS: PCP Nurse Practitioner Family; Visit Provider Orthopaedic Surgery | DX: M25.562 Pain in left knee (principal); Z47.1 Aftercare following joint replacement surgery; Z96.652 Presence of left artificial knee joint | CPT/HCPCS: 97110; 97112; 97530 ==

== ENCOUNTER 2025-04-07 17:21 | Emergency (ER) | payer BC, MEDICAID, SELFPAY ==
[2025-04-07 17:26] VITALS: BP 119/54; PULSE 69; TEMP 36.6; O2SAT 97; BMI 46.1
--- NOTE | 2025-04-07 17:32 | ED.GENADUL1 ---
HPI HPI - General Adult General Chief complaint: Upper Respiratory Infection Stated complaint: CONGESTED/CAN'T HARDLY TALK Time Seen by Provider: 04/07/25 17:28 Source: patient Mode of arrival: walk-in History of Present Illness HPI narrative: 54-year-old female presented to the emergency department for head pressure and slight cough and bodyaches. She is worried about having COVID. She is not vaccinated for COVID. She has had the symptoms for about 4 days. No vomiting or diarrhea or known fever. Related Data Home Medications ?Medication ?Instructions ?Recorded ?Confirmed atorvastatin 10 mg tablet 10 mg PO DAILY 02/20/23 08/09/24 chlorthalidone 25 mg tablet 25 mg PO DAILY 02/20/23 08/09/24 glipizide 10 mg tablet 10 mg PO BID 02/20/23 08/09/24 lisinopril 10 mg tablet 10 mg PO DAILY 02/20/23 08/09/24 pantoprazole 40 mg tablet,delayed 40 mg PO DAILY 02/20/23 08/09/24 release insulin NPH-regular 70-30 U-100 26 unit subcut DAILY 08/09/24 08/09/24 insulin 100 unit/mL subcutaneous pen (Humulin 70/30 U-100 KwikPen) potassium chloride 10 mEq 10 meq PO BID 08/09/24 08/09/24 tablet,extended release (Klor-Con) trazodone 50 mg tablet 50 mg PO DAILY 08/09/24 08/09/24 Previous Rx's ?Medication ?Instructions ?Recorded tizanidine 4 mg capsule 4 mg PO BID PRN muscle spasticity 04/27/24 #14 caps Allergies Allergy/AdvReac Type Severity Reaction Status Date / Time prednisone AdvReac Vomiting Verified 05/30/24 05:46 Opioid HPI Opioid Management Most Recent Opioid Data: Last Pain Scale 8 06/19/24, 06:02 Review of Systems ROS Narrative A ten point review of systems is negative except as noted above. 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 General: The patient appears in no apparent distress. Patient is resting comfortably on cart. Her voice is hoarse. Skin: Warm, dry, no pallor noted. There is no rash noted. Head: Normocephalic, atraumatic Eye: Normal conjunctiva, no drainage Ears, Nose, Mouth, and Throat: oral mucosa is moist. Nares patent. Mouth without vesicles. Ear canals patent. Tm's without Erythema. No pharyngeal exudate. Uvula midline. Cardiovascular: Regular Rate and Rhythm Respiratory: Patient is in no distress, no accessory muscle use, lungs are clear to auscultation, no wheezing, rales or rhonchi Back: non-tender GI: Soft and nontender Musculoskeletal: The patient has no evidence of calf tenderness, no pitting edema, symmetrical pulses noted bilaterally Neurological: A&O, normal speech Psychiatric: Cooperative Constitutional Vital Signs, click to edit/add: Last Vital Signs Temp 97.9 F 04/07/25 17:26 Pulse 69 04/07/25 17:26 Resp 16 04/07/25 17:26 BP 119/54 04/07/25 17:26 Pulse Ox 97 04/07/25 17:26 Course Vital Signs Vital signs: Vital Signs Temperature 97.9 F 04/07/25 17:26 Pulse Rate 69 04/07/25 17:26 Respiratory Rate 16 04/07/25 17:26 Blood Pressure 119/54 04/07/25 17:26 Pulse Oximetry 97 04/07/25 17:26 Temperature 97.9 F 04/07/25 17:26 Pulse Rate 69 04/07/25 17:26 Respiratory Rate 16 04/07/25 17:26 Blood Pressure 119/54 04/07/25 17:26 Pulse Oximetry 97 04/07/25 17:26 Medical Decision Making MDM Narrative Medical decision making narrative: The patient is positive for COVID and was informed.Diagnosis and follow-up were discussed with the patient. Differential Diagnosis Differential Diagnosis: Would, viral URI Lab Data Lab results reviewed: Yes I reviewed the patient's lab results Labs: Lab Results 04/07/25 Range/Units 17:32 SARS-CoV-2 Ag (CV2AG) Positive A (NEGATIVE) Discharge Plan Discharge Chief Complaint: Upper Respiratory Infection Clinical Impression: COVID-19 Patient Disposition: Home, Self-Care Time of Disposition Decision: 18:11 Condition: Good Mode of Transportation: Private Vehicle Prescriptions / Home Meds: No Action tizanidine 4 mg capsule 4 mg PO BID PRN (Reason: muscle spasticity) Qty: 14 0RF atorvastatin 10 mg tablet 10 mg PO DAILY chlorthalidone 25 mg tablet 25 mg PO DAILY glipizide 10 mg tablet 10 mg PO BID lisinopril 10 mg tablet 10 mg PO DAILY pantoprazole 40 mg tablet,delayed release (DR/EC) 40 mg PO DAILY Humulin 70/30 U-100 KwikPen 100 unit/mL (70-30) insulin pen 26 unit subcut DAILY trazodone 50 mg tablet 50 mg PO DAILY potassium chloride [Klor-Con 10] 10 mEq tablet extended release 10 meq PO BID Print Language: Croatian Instructions: COVID-19 (Coronavirus Disease 2019) (ED), COVID-19: Slow the Coronavirus Spread (ED), Face Coverings (Masks) and COVID-19 (ED) Referrals: NEGIN HARDWICK [Primary Care Provider, Family Practice] - 1 week
[2025-04-07 18:03] LABS: SARS-CoV-2 Ag POSITIVE (NEGATIVE)
== END 2025-04-07 18:20 | disposition home or self-care (01) ==
PROVIDERS: Emergency Provider Emergency Medicine; PCP Nurse Practitioner Family
DX: U07.1 COVID-19 (principal); R51.9 Headache, unspecified; R05.9 Cough, unspecified
CPT/HCPCS: 87811; 99283